=== PATIENT | female | born 1955 | race African-American/Black ===

== ENCOUNTER 2016-10-10 21:28 | Emergency (ER) | payer MEDICAID, OTHER ==
[~2016-10-10] VITALS: Ht 160 cm; Wt 81.6 kg
[~2016-10-10 21:28] MED LIST: IBUPROFEN600 MG ORAL; NORCO 10-325 T1 EACH ORAL; NORCO 10/3251 EA ORAL; NORCO 5-325 TA1 EACH ORAL; XOPENEX0.63 MG/3 HHN; qvar
[2016-10-10] MEDS ORDERED: GABAPENTIN300 MG ORAL (21:57)
--- NOTE | 2016-10-10 21:58 | Emergency Room Report ---
History of Present Illness General Chief Complaint: Neck Pain Source: Patient Present Illness HPI Is a 61-year-old female with a history of chronic pain. She has a history of herniated disc in her neck requiring surgery. She presents with chief complaint of numbness to both her hands for about a week now. Similar symptom in the past. She said that she tried to call her neurosurgeon but [place]. Denies any fever chills denies any trauma. Pain is 10 out of 10. Unable to sleep. Said her pain medication not helping. Denies any other complaint. No other neurological deficit. No incontinence of bowel or urine. 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) Patient History Past Medical History: see triage record, old chart reviewed Past Surgical History: other Pertinent Family History: none Social History: Denies: smoking Now: No Immunizations: other Reviewed Nursing Documentation: PMH: Agreed, PSxH: Agreed Nursing Documentation-PMH Hx Cardiac Problems: No - back and neck surgery Hx Asthma: Yes - Bronchitis Review of Systems Eye: Denies: blurred vision, eye pain ENT: Denies: ear pain, nose congestion, throat swelling Respiratory: Denies: cough, shortness of breath Cardiovascular: Denies: chest pain, palpitations Gastrointestinal: Denies: abdominal pain, diarrhea, nausea, vomiting Musculoskeletal: Denies: back pain, joint pain Skin: Denies: rash Neurological: Denies: headache, numbness Endocrine: Denies: increased thirst, increased urine Hematologic/Lymphatic: Denies: easy bruising All Other Systems: negative except mentioned in HPI Physical Exam Vital Signs Date Time Temp Pulse Resp B/P Pulse Ox O2 Delivery O2 Flow Rate FiO2 10/10/16 21:32 97.5 88 15 182/90 99 Room Air vitals with hypertension Sp02 EP Interpretation: reviewed, normal General Appearance: well appearing, no apparent distress, alert Head: normocephalic, atraumatic Eyes: bilateral eye EOMI, bilateral eye PERRL ENT: hearing grossly normal, normal pharynx Neck: full range of motion, supple, no meningismus, other - Surgical scar well -healed Respiratory: chest non-tender, lungs clear, normal breath sounds Cardiovascular #1: regular rate, rhythm, no murmur Gastrointestinal: normal bowel sounds, non tender, no mass, no organomegaly, no bruit, non-distended Musculoskeletal: back normal, gait/station normal, normal range of motion Neurologic: alert, oriented x3 Psychiatric: mood/affect normal Skin: warm/dry Medical Decision Making Diagnostic Impression: Primary Impression: Neck pain Additional Impressions: Opioid dependence Cervical neuropathy ER Course Patient presents with neuropathy. I suspect a strong opioid dependence and possibly drug-seeking behavior. She gets monthly prescription from Dr. Linda Haro. She also has multiple prescription for multiple doctors in between. She may need an MRI but does not have to be emergent. This no other focal deficit. We'll discharge home. This is similar issue that she gave last time and said that she could not contact her surgeon. I see no evidence quina syndrome, spinal epidural abscess, or neoplastic process Last Vital Signs Date Time Temp Pulse Resp B/P Pulse Ox O2 Delivery O2 Flow Rate FiO2 10/10/16 21:32 97.5 88 15 182/90 99 Room Air Status: unchanged Disposition: HOME, SELF-CARE Condition: Stable Scripts Gabapentin* (GABAPENTIN*) 300 Mg Capsule 300 MG ORAL THREE TIMES A DAY, #60 CAP 0 Refills Prov: LELAND BURNETT M.D. 10/10/16 Referrals: [facility] ([facility]P) Patient Instructions: NECK PAIN, No Trauma Additional Instructions: Followup with your DrDebbie within 7 days. You may be an MRI. Your DrDebbiewill determine this. Return if symptom worsen. LELAND BURNETT M.D. Oct 10, 2016 21:58
[2016-10-10 22:00] VITALS: BP 182/90
[2016-10-10 22:04] VITALS: BP 182/90
== END 2016-10-10 22:07 | disposition home or self-care (01) ==
LOC: EMR 21:49
DX: M54.2 Cervicalgia (principal); F11.20 Opioid dependence, uncomplicated; G62.9 Polyneuropathy, unspecified; G89.29 Other chronic pain; Z88.0 Allergy status to penicillin; Z88.6 Allergy status to analgesic agent; Z88.8 Allergy status to other drugs, medicaments and biological substances
CPT/HCPCS: 99283

== ENCOUNTER 2017-06-18 14:26 | Emergency (ER) | payer MEDICAID, OTHER ==
[~2017-06-18] VITALS: Ht 160 cm; Wt 77.1 kg
[~2017-06-18 14:26] MED LIST changes: +GABAPENTIN300 MG ORAL; +Sodium Chloride 500ML 500 ML IV ONE
[2017-06-18] MEDS ORDERED: Solu-MEDROL 125mg Inj IVP ONE (14:30)
[2017-06-18] MEDS: Ipratropium 0.02% Inh Soln 2.5ml UD HHN SCH ×3 (14:54→15:02)
[2017-06-18] MEDS: Albuterol ud Inhalation HHN SCH ×3 (14:54→15:02)
[2017-06-18 15:35] LABS: BASOPHILS % (AUTO) 0.7 % (0.0-2.0); EOSINOPHILS % (AUTO) 2.6 % (0.0-3.0); HEMATOCRIT 33.7 % (37.0-47.0); HEMOGLOBIN 10.5 G/DL (12.0-16.0); LYMPHOCYTES % (AUTO) 43.9 % (20.0-45.0); MEAN CORPUSCULAR VOLUME 92 FL (80-99); MONOCYTES % (AUTO) 7.7 % (1.0-10.0); NEUTROPHILS % (AUTO) 45.1 % (45.0-75.0); PLATELET COUNT 149 K/UL (150-450); RED BLOOD COUNT 3.64 M/UL (4.20-5.40); WHITE BLOOD COUNT 10.1 K/UL (4.8-10.8)
[2017-06-18 15:53] LABS: ANION GAP 10 mmol/L (5-15); BLOOD UREA NITROGEN 38 mg/dL (7-18); CALCIUM 7.5 MG/DL (8.5-10.1); CARBON DIOXIDE 25 MMOL/L (21-32); CHLORIDE 112 MMOL/L (98-107); POTASSIUM 4.7 MMOL/L (3.5-5.1); SODIUM 147 MMOL/L (136-145)
[2017-06-18 16:08] LABS: ALANINE AMINOTRANSFERASE 13 U/L (12-78); ALBUMIN 2.8 G/DL (3.4-5.0); ALBUMIN/GLOBULIN RATIO 0.8 (1.0-2.7); ALKALINE PHOSPHATASE 116 U/L (46-116); ASPARTATE AMINO TRANSFERASE 19 U/L (15-37); BILIRUBIN,TOTAL 0.2 MG/DL (0.2-1.0); CKMB 1.4 NG/ML (0.0-3.6); CREATINE KINASE 77 U/L (26-308)
[2017-06-18 17:16] VITALS: BP 155/102
[2017-06-18 19:30] VITALS: BP 166/94
[2017-06-18] MEDS ORDERED: HYDROmorphone 1mg/ml Carpuject IVP ONE (20:15)
[2017-06-18 20:18] LABS: APPEARANCE,URINE CLEAR; BILIRUBIN, URINE NEGATIVE (NEGATIVE); COLOR,URINE PALE YELLOW; GLUCOSE, URINE (UA) NEGATIVE (NEGATIVE); KETONES,URINE NEGATIVE (NEGATIVE); LEUKOCYTE ESTERASE ,URINE NEGATIVE (NEGATIVE); NITRITE,URINE NEGATIVE (NEGATIVE); PH,URINE 7 (4.5-8.0); PROTEIN,URINE 3+ (NEGATIVE); UROBILINOGEN,URINE NORMAL MG/DL (0.0-1.0)
--- NOTE | 2017-06-18 21:27 | Emergency Room Report ---
History of Present Illness General Chief Complaint: Dyspnea/Respdistress Source: Patient, Medical Record Present Illness HPI 61-year-old female presents to ED for evaluation. Patient brought in by ambulance from bus stop with shortness of breath. Patient history of COPD. O2 sats were low. Patient was started on breathing treatments by EMS. Patient states she was recently admitted for treatment of COPD exacerbation but was discharged. Denies chest pain. Denies fevers chills. No other aggravating relieving factors. 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) KETOROLAC (Unverified Allergy, Unknown, 06/18/17) TRAMADOL (Unverified Allergy, Unknown, 06/18/17) Patient History Past Medical History: COPD Past Surgical History: none Pertinent Family History: none Social History: Denies: smoking, alcohol use, drug use Now: No Immunizations: UTD Reviewed Nursing Documentation: PMH: Agreed, PSxH: Agreed Nursing Documentation-PMH Past Medical History: No History, Except For Hx Cardiac Problems: No - back and neck surgery Hx Asthma: Yes Review of Systems All Other Systems: negative except mentioned in HPI Physical Exam Vital Signs Date Time Temp Pulse Resp B/P (MAP) Pulse Ox O2 Delivery O2 Flow Rate FiO2 06/18/17 14:17 98.4 113 18 178/86 100 Room Air 06/18/17 14:38 21 Sp02 EP Interpretation: reviewed, normal General Appearance: no apparent distress, alert, GCS 15, non-toxic Head: normocephalic, atraumatic Eyes: bilateral eye normal inspection, bilateral eye PERRL ENT: hearing grossly normal, normal pharynx, no angioedema, normal voice Neck: full range of motion, supple/symm/no masses Respiratory: chest non-tender, accessory muscle use, crackles, speaking full sentences, wheezing Cardiovascular #1: regular rate, rhythm, no edema Cardiovascular #2: 2+ carotid (R), 2+ carotid (L), 2+ radial (R), 2+ radial (L) , 2+ dorsalis pedis (R), 2+ dorsalis pedis (L) Gastrointestinal: normal bowel sounds, non tender, soft, non-distended, no guarding, no rebound Rectal: deferred Genitourinary: normal inspection, no CVA tenderness Musculoskeletal: back normal, gait/station normal, normal range of motion, non- tender Neurologic: alert, oriented x3, responsive, motor strength/tone normal, sensory intact, speech normal Psychiatric: judgement/insight normal, memory normal, mood/affect normal, no suicidal/homicidal ideation Reflexes: 3+ bicep (R), 3+ bicep (L), 3+ tricep (R), 3+ tricep (L), 3+ knee (R) , 3+ knee (L) Skin: normal color, no rash, warm/dry, well hydrated Lymphatic: no adenopathy Medical Decision Making Diagnostic Impression: Primary Impression: COPD exacerbation Additional Impression: Renal insufficiency ER Course Hospital Course 61-year-old F presenting to ED with SOB. h/o COPD Differential diagnoses include: Pneumonia, CHF exacerbation, pneumothorax, fluid overload Clinical course Patient placed on stretcher. On box toe stitcher with stable vitals. After initial history and physical, I ordered nebulizer treatments. I ordered labs, IV fluids, EKG, chest x-ray, blood cultures, UA. Labs - no leukocytosis noted, hemoglobin/hematocrit stable, BUN/Cr eleavted, lactate okay, troponins negative EKG - NSR, no acute ischemic changes interpretd by me CXR - cardiomegaly despite multiple patient continues to have shortness of breath and wheezing. Antibiotics given Because of insurance patient will be transferred I feel this is a highly complex case requiring extensive working including EKG/ Rhythm strip, Xray/CT/US, Blood/urine lab work, repeat exams while in ED, and administration of strong opiates/narcotics for pain control, admission to hospital or close patient follow up. Diagnosis - COPD exacerbation, renal insufficiency transferred in serious condition Labs Test 06/18/17 15:14 06/18/17 19:45 White Blood Count 10.1 K/UL (4.8-10.8) Red Blood Count 3.64 M/UL (4.20-5.40) Hemoglobin 10.5 G/DL (12.0-16.0) Hematocrit 33.7 % (37.0-47.0) Mean Corpuscular Volume 92 FL (80-99) Mean Corpuscular Hemoglobin 28.8 PG (27.0-31.0) Mean Corpuscular Hemoglobin Concent 31.2 G/DL (32.0-36.0) Red Cell Distribution Width 14.0 % (11.6-14.8) Platelet Count 149 K/UL (150-450) Mean Platelet Volume 11.3 FL (6.5-10.1) Neutrophils (%) (Auto) 45.1 % (45.0-75.0) Lymphocytes (%) (Auto) 43.9 % (20.0-45.0) Monocytes (%) (Auto) 7.7 % (1.0-10.0) Eosinophils (%) (Auto) 2.6 % (0.0-3.0) Basophils (%) (Auto) 0.7 % (0.0-2.0) Sodium Level 147 MMOL/L (136-145) Potassium Level 4.7 MMOL/L (3.5-5.1) Chloride Level 112 MMOL/L (98-107) Carbon Dioxide Level 25 MMOL/L (21-32) Anion Gap 10 mmol/L (5-15) Blood Urea Nitrogen 38 mg/dL (7-18) Creatinine 2.0 MG/DL (0.55-1.30) Estimat Glomerular Filtration Rate 30.5 mL/min (>60) Glucose Level 83 MG/DL (74-106) Lactic Acid Level 1.10 mmol/L (0.66-2.22) Calcium Level 7.5 MG/DL (8.5-10.1) Total Bilirubin 0.2 MG/DL (0.2-1.0) Aspartate Amino Transf (AST/SGOT) 19 U/L (15-37) Alanine Aminotransferase (ALT/SGPT) 13 U/L (12-78) Alkaline Phosphatase 116 U/L (46-116) Total Creatine Kinase 77 U/L (26-308) Creatine Kinase MB 1.4 NG/ML (0.0-3.6) Creatine Kinase MB Relative Index 1.8 Troponin I 0.005 ng/mL (0.000-0.056) Pro-B-Type Natriuretic Peptide 410 pg/mL (0-125) Total Protein 6.1 G/DL (6.4-8.2) Albumin 2.8 G/DL (3.4-5.0) Globulin 3.3 g/dL Albumin/Globulin Ratio 0.8 (1.0-2.7) Urine Color Pale yellow Urine Appearance Clear Urine pH 7 (4.5-8.0) Urine Specific Lancing 1.005 (1.005-1.035) Urine Protein 3+ (NEGATIVE) Urine Glucose (UA) Negative (NEGATIVE) Urine Ketones Negative (NEGATIVE) Urine Occult Blood Negative (NEGATIVE) Urine Nitrite Negative (NEGATIVE) Urine Bilirubin Negative (NEGATIVE) Urine Urobilinogen Normal MG/DL (0.0-1.0) Urine Leukocyte Esterase Negative (NEGATIVE) Urine RBC 0-2 /HPF (0 - 2) Urine WBC 0-2 /HPF (0 - 2) Urine Squamous Epithelial Cells Few /LPF (NONE/OCC) Urine Bacteria Few /HPF (NONE) EKG Diagnostic Results Rate: normal Rhythm: NSR ST Segments: no acute changes ASA given to the pt in ED: No Rhythm Strip Diag. Results EP Interpretation: yes Rhythm: NSR, no PVC's, no ectopy Chest X-Ray Diagnostic Results Chest X-Ray Diagnostic Results : Chest X-Ray Ordered: Yes # of Views/Limited/Complete: 1 View Indication: Shortness of Breath EP Interpretation: Yes Interpretation: no pneumothorax, no acute cardiopulmonary disease, other - cardiomegaly. pleural effusion Impression: Other - cardiomegaly Last Vital Signs Date Time Temp Pulse Resp B/P (MAP) Pulse Ox O2 Delivery O2 Flow Rate FiO2 06/18/17 17:16 98.4 123 21 155/102 96 Room Air 06/18/17 15:23 21 Status: improved Disposition: [facility] Condition: Serious Referrals: [facility] ([facility]P) LALO LEAL M.D. Jun 18, 2017 21:27
[2017-06-18 21:30] VITALS: BP 163/97
[2017-06-18 23:30] VITALS: BP 169/85
[2017-06-19 01:00] VITALS: BP 172/89
[2017-06-19 02:00] VITALS: BP 172/89
--- NOTE | 2017-06-19 12:01 | Diagnostic Imaging Report ---
Indication: Dyspnea Technique: XRAY Chest 1v Comparison: 05/18/2009 Findings: Heart is enlarged. There is pulmonary vascular congestion. No definite focal airspace consolidation. No pleural effusion. No pneumothorax. No acute osseous abnormality seen. Cervical fixation hardware is partially visualized Impression: Cardiomegaly with central pulmonary vascular congestion. No focal consolidation.
--- NOTE | 2017-06-22 19:28 | Cardiology Report ---
APPROVED REPORT EKG Measurement Heart [id number] ID [id number] Normal sinus rhythm Biatrial enlargement Abnormal ECG
== END 2017-06-19 02:00 | disposition short-term general hospital (02) ==
LOC: EDBD 14:26 → EMR 15:30
DX: J44.1 Chronic obstructive pulmonary disease with (acute) exacerbation (principal); N28.9 Disorder of kidney and ureter, unspecified; Z88.0 Allergy status to penicillin; Z88.6 Allergy status to analgesic agent; Z88.8 Allergy status to other drugs, medicaments and biological substances; I51.7 Cardiomegaly
CPT/HCPCS: 36415; 71010; 80053; 81003; 82550; 82553; 83605; 83880; 84484; 85025; 86710; 87040; 93005; 94640; 94664; 96374; 96375; 99285; J1170; J1956; J2930; J7040

== ENCOUNTER 2017-07-17 05:40 | Emergency (ER) | payer MEDICAID ==
[~2017-07-17] VITALS: Ht 160 cm; Wt 81.6 kg
[~2017-07-17 05:40] MED LIST changes: -Sodium Chloride 500ML 500 ML IV ONE
[2017-07-17] MEDS ORDERED: ROXICODONE15 MG ORAL (06:00)
[2017-07-17 06:13] VITALS: BP 158/89
[2017-07-17] MEDS ORDERED: Dicyclomine HCl 10mg/5ml oral soln ORAL ONE (06:15)
[2017-07-17] MEDS ORDERED: Metoclopramide 10mg/10ml Liq ORAL ONE (06:15)
[2017-07-17] MEDS ORDERED: BENTYL10 MG ORAL (06:16)
[2017-07-17] MEDS ORDERED: REGLAN10 MG ORAL (06:16)
[2017-07-17 06:25] VITALS: BP 158/89
--- NOTE | 2017-07-17 23:51 | Emergency Room Report ---
History of Present Illness General Chief Complaint: Pain Source: Patient, Medical Record Present Illness HPI 61-year-old female walks in with nausea, epigastric pain, vomiting, and diarrhea since last night. She endorses that she "eats something funny". Is not taking any [id number] medications Trying to tolerate water but keeps vomiting it up. Contrary to director embalmer note, patient NOT here for hip pain. She has copies of imaging from [facility] - was seen, evaluated by there already. 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 Was DCed from the ER allegedly there with outpatient followup. Allergies: Coded Allergies: BUTORPHANOL TARTRATE (Verified Allergy, Severe, behavioral, 07/17/17) KETOROLAC TROMETHAMINE (Verified Allergy, Severe, behavioral, 07/17/17) MORPHINE (Verified Allergy, Severe, itching, 07/17/17) PENICILLINS (Verified Allergy, Severe, swelling, 07/17/17) LINEZOLID (Verified Allergy, Intermediate, rash, 07/17/17) VANCOMYCIN (Verified Allergy, Intermediate, donald syndrome, 07/17/17) KETOROLAC (Unverified Allergy, Unknown, 07/17/17) TRAMADOL (Unverified Allergy, Unknown, 07/17/17) Patient History Past Medical History: see triage record, old chart reviewed Past Surgical History: none Pertinent Family History: none Social History: Denies: smoking, alcohol use, drug use Last Menstrual Period: n/a Now: No Immunizations: UTD Reviewed Nursing Documentation: PMH: Agreed, PSxH: Agreed Nursing Documentation-PMH Hx Cardiac Problems: No - back and neck surgery Hx Asthma: Yes Review of Systems All Other Systems: negative except mentioned in HPI Physical Exam Vital Signs Date Time Temp Pulse Resp B/P (MAP) Pulse Ox O2 Delivery O2 Flow Rate FiO2 07/17/17 05:53 98.1 91 16 197/96 100 Room Air Sp02 EP Interpretation: reviewed, normal General Appearance: normal inspection, well appearing, no apparent distress, alert, GCS 15, non-toxic, obese Head: normocephalic, atraumatic Eyes: bilateral eye PERRL, bilateral eye EOMI ENT: normal ENT inspection, hearing grossly normal, normal pharynx, no angioedema, normal voice, TMs + canals normal, uvula midline, moist mucus membranes Neck: normal inspection, full range of motion, supple, thyroid normal, no meningismus, no bony tend Respiratory: normal inspection, lungs clear, normal breath sounds, no rhonchi, no respiratory distress, no retraction, no accessory muscle use, no wheezing, speaking full sentences Cardiovascular #1: regular rate, rhythm, no edema, no JVD, normal capillary refill Gastrointestinal: normal inspection, normal bowel sounds, soft, no mass, no peritonitis, non-distended, no guarding, no hernia, no pulsatile mass, other - mid epigastric pain Genitourinary: no CVA tenderness Musculoskeletal: normal inspection, back normal, normal range of motion, no calf tenderness, pelvis stable, Blossom's Sign negative Neurologic: normal inspection, alert, oriented x3, responsive, services mgr III-XII nml as tested, motor strength/tone normal, cerebellar normal, normal gait, speech normal Psychiatric: normal inspection, judgement/insight normal, mood/affect normal, no suicidal/homicidal ideation, no delusions Skin: normal inspection, normal color, no rash Lymphatic: normal inspection, no adenopathy Medical Decision Making Diagnostic Impression: Primary Impression: Gastroenteritis ER Course Mild epigastric ttp on exam VSS, Afebrile Tolerating PO after reglan/bentyl No additional vomiting, diarrhea in ED Patient has cane - advised to probably NOT weight bear on hip with fx and to followup as advised by Ortho at [facility] Was given reglan, bentyl ER course: Patient has remained stable during ED stay. Disposition: Patient is to be discharged to home. Prescriptions given are bentyl, reglan Patient is instructed to follow up with their primary care doctor within 5 days. Strict return precautions discussed with patient such as fever, chills, worsening/severe pain, nausea, vomiting, which may indicate severe illness. Patient verbalizes understanding and agrees with plan. Please note that this Emergency Department Report was dictated using [employer]systemsdimethylan[employer] sulfator operator technology software, occasionally this can lead to erroneous entry secondary to interpretation by the dictation equipment Last Vital Signs Date Time Temp Pulse Resp B/P (MAP) Pulse Ox O2 Delivery O2 Flow Rate FiO2 07/17/17 06:25 98.1 95 16 158/89 100 Room Air Status: improved Disposition: HOME, SELF-CARE Condition: Improved Scripts Dicyclomine Hcl* (BENTYL*) 10 Mg Capsule 10 MG ORAL BID for Diarrhea for 7 Days, #14 CAP Prov: RIKI SOMMER M.D. 07/17/17 Metoclopramide Hcl* (REGLAN*) 10 Mg Tablet 10 MG ORAL BID for 7 Days, #14 TAB Prov: RIKI SOMMER M.D. 07/17/17 Patient Instructions: Viral Gastroenteritis, Adult, [id number] Additional Instructions: - Take reglan as needed twice a day for stomach pain, nausea - Take bentyl up to 2x a day for diarrhea - Drink plenty of fluids - Follow up with your doctor in 2-3 days RIKI SOMMER M.D. Jul 17, 2017 23:51
== END 2017-07-17 06:25 | disposition home or self-care (01) ==
LOC: EMR 06:03
DX: K52.9 Noninfective gastroenteritis and colitis, unspecified (principal); J45.909 Unspecified asthma, uncomplicated; Z88.6 Allergy status to analgesic agent; Z88.1 Allergy status to other antibiotic agents; Z88.0 Allergy status to penicillin
CPT/HCPCS: 99283

== ENCOUNTER 2017-10-28 05:47 | Emergency (ER) | payer MEDICAID ==
[~2017-10-28] VITALS: Ht 160 cm; Wt 81.6 kg
[~2017-10-28 05:47] MED LIST changes: +BENTYL10 MG ORAL; +REGLAN10 MG ORAL; +ROXICODONE15 MG ORAL
[2017-10-28] MEDS ORDERED: PREDNISONE20 MG ORAL (06:08)
--- NOTE | 2017-10-28 06:14 | Emergency Room Report ---
History of Present Illness General Chief Complaint: Pain Source: Patient Present Illness HPI Patient present with complaints of left neck pain and left upper shoulder pain Patient reports that she has been see by her primary physician who had referral to specialty consultation She was told that she was not a surgical candidate for her neck There was no recent trauma or fall Denies any chest pain or shortness of breath Patient feels that she has increased cramping in the left hand Denies any change with position or weather Patient has extensive past medical history including previous cervical spine surgery 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) FENTANYL (Verified Allergy, Unknown, Rash, 10/28/17) KETOROLAC (Unverified Allergy, Unknown, 10/28/17) TRAMADOL (Unverified Allergy, Unknown, 10/28/17) ACETAMINOPHEN (Verified Adverse Reaction, Unknown, 10/28/17) abd pain Patient History Past Medical History: see triage record Pertinent Family History: none Last Menstrual Period: n/a Reviewed Nursing Documentation: PMH: Agreed; PSxH: Agreed Nursing Documentation-PMH Past Medical History: No History, Except For Hx Cardiac Problems: No - back and neck surgery 2014 Hx Asthma: Yes Review of Systems All Other Systems: negative except mentioned in HPI Physical Exam Vital Signs Date Time Temp Pulse Resp B/P (MAP) Pulse Ox O2 Delivery O2 Flow Rate FiO2 10/28/17 05:52 98.1 95 16 161/97 96 Room Air 98.1 Sp02 EP Interpretation: reviewed, normal General Appearance: no apparent distress Head: normocephalic, atraumatic Eyes: left eye other - Severe cataracts ENT: normal pharynx, no angioedema Neck: supple, thyroid normal Respiratory: lungs clear Cardiovascular #1: regular rate, rhythm Musculoskeletal: other - Equal telesales consultant bilaterally Neurologic: alert, oriented x3, responsive, other - Patient ambulate with a cane Skin: no rash Lymphatic: no adenopathy Medical Decision Making Diagnostic Impression: Primary Impression: neck pain ER Course Patient has significant chronicity to her acute presentation With discussion regarding different intervention, patient reports that epidurals last only 24 hours. After reviewing CURES, it appears patient was also provided recent Soma and has multiple medications by different providers. Patient had not mentioned any previous prescriptions or recent muscle relaxers I discussed with her that it is very important to be followed by primary pain management Patient also requires neurosurgical referral and continued care Patient is provided steroids And requires close outpatient follow-up Last Vital Signs Date Time Temp Pulse Resp B/P (MAP) Pulse Ox O2 Delivery O2 Flow Rate FiO2 10/28/17 05:52 98.1 95 16 161/97 96 Room Air 98.1 Status: unchanged Disposition: HOME, SELF-CARE Condition: Stable Scripts Prednisone* (PREDNISONE*) 20 Mg Tablet 20 MG ORAL BID, #12 TAB Prov: Aviva Luis DO 10/28/17 Patient Instructions: Cervical Sprain, [id number], Cervical Radiculopathy, [id number] Additional Instructions: Please follow-up with your primary physician in the next one to 2 days. You require specialty follow-up. We have also mentioned that your neck surgery was performed at [facility]. Unfortunately we do not have the specialty you require at this facility. And close follow-up is recommended Aviva Luis DO October 28, 2017 06:14
[2017-10-28 06:30] VITALS: BP 161/97
== END 2017-10-28 06:32 | disposition home or self-care (01) ==
LOC: EMR 06:21
DX: M54.2 Cervicalgia (principal); M25.512 Pain in left shoulder; J45.909 Unspecified asthma, uncomplicated; Z88.6 Allergy status to analgesic agent; Z88.5 Allergy status to narcotic agent; Z88.0 Allergy status to penicillin
CPT/HCPCS: 99283

== ENCOUNTER 2018-10-30 21:53 | Emergency (ER) | payer MEDICARE, OTHER ==
[~2018-10-30] VITALS: Ht 160 cm; Wt 79.4 kg
[~2018-10-30 21:53] MED LIST changes: +PREDNISONE20 MG ORAL
[2018-10-30 22:00] VITALS: BP 167/79
--- NOTE | 2018-10-30 22:00 | NUR ---
ED Nurse Note: Pt arrived ambulatory for complaint of LLQ pain that radiates to back. Pt states she was told she has bone spurs. Pain described as aching and constant. 03/29.
[2018-10-30] MEDS ORDERED: Acetaminophen 500mg (ES) tab ORAL ONE (22:15)
[2018-10-30] MEDS ORDERED: ACETAMINOPHEN500 M3 ORAL (22:21)
--- NOTE | 2018-10-30 22:21 | Emergency Room Report ---
History of Present Illness General Chief Complaint: Pain Source: Patient Present Illness HPI This a 63-year-old female with a history of chronic pain. She presents with chief complaint of right sided and back pain. Onset for last for 5 days. Patient denies any fever chills but denies any trauma. Pain is 10 out of 10. Said that she hasn't take anything for this pain. She normally doesn't get any pain medication. Said that she hasn't take any pain medication for months. Denies any fever chills but denies any nausea vomiting. Denies any other complaint. No incontinence of bowel or urine. No urinary complaint. No radiation. Worse with movement. 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) FENTANYL (Verified Allergy, Unknown, Rash, 10/28/17) KETOROLAC (Unverified Allergy, Unknown, 10/28/17) TRAMADOL (Unverified Allergy, Unknown, 10/28/17) ACETAMINOPHEN (Verified Adverse Reaction, Unknown, 10/28/17) abd pain Patient History Past Medical History: see triage record, old chart reviewed Past Surgical History: other Pertinent Family History: none Social History: Denies: smoking Last Menstrual Period: 1999 Now: No Immunizations: other Reviewed Nursing Documentation: PMH: Agreed; PSxH: Agreed Nursing Documentation-PMH Past Medical History: No History, Except For Hx Asthma: Yes - bronchitis, ephysema Hx Gastrointestinal Problems: Yes Review of Systems Eye: Denies: eye pain, blurred vision ENT: Denies: ear pain, nose congestion, throat swelling Respiratory: Denies: cough, shortness of breath Cardiovascular: Denies: chest pain, palpitations Gastrointestinal: Denies: abdominal pain, diarrhea, nausea, vomiting Musculoskeletal: Reports: back pain; Denies: joint pain Skin: Denies: rash Neurological: Denies: headache, numbness Endocrine: Denies: increased thirst, increased urine Hematologic/Lymphatic: Denies: easy bruising All Other Systems: negative except mentioned in HPI Physical Exam Vital Signs Date Time Temp Pulse Resp B/P (MAP) Pulse Ox O2 Delivery O2 Flow Rate FiO2 10/30/18 21:56 98.8 105 16 96 Room Air vitals with high blood pressure Sp02 EP Interpretation: reviewed, normal General Appearance: well appearing, no apparent distress, alert Head: normocephalic, atraumatic Eyes: 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 no step off. no anesthesia, gait/station normal, normal range of motion Psychiatric: mood/affect normal Skin: warm/dry Medical Decision Making Diagnostic Impression: Primary Impression: Exacerbation of chronic back pain Additional Impression: Opioid dependence ER Course She presents with back pain. I suspect a high opioid dependence and drug- seeking behavior. Patient claimed that she has not take any pain medication for months. She received oxycodone on 10/23/2018. She had multiple opioids prescription and benzodiazepine from multiple different doctors. I am uncomfortable prescribing her narcotics based on her dark narcotics seeking behavior. We'll discharge home. I see no evidence of cauda equina syndrome, spinal epidural abscess or neoplastic process. Last Vital Signs Date Time Temp Pulse Resp B/P (MAP) Pulse Ox O2 Delivery O2 Flow Rate FiO2 10/30/18 21:56 98.8 105 16 96 Room Air Status: improved Disposition: HOME, SELF-CARE Condition: Stable Scripts Acetaminophen* (ACETAMINOPHEN EXTRA STRENGTH*) 500 Mg Tablet 500 MG ORAL Q8H PRN for Fever/Headache/Mild Pain, #30 TAB Prov: Yordy Wang MD 10/30/18 Additional Instructions: Follow-up with your doctor in 7 days. Return if symptom worsen. Yordy Wang MD October 30, 2018 22:21
[2018-10-30 22:40] VITALS: BP 154/84
--- NOTE | 2018-10-30 22:40 | NUR ---
ED Nurse Note: Pt cleared by MD. Discharge paperwork and prescriptions provided. Pt verbalized understanding of all instructions. All belongings taken with pt. ID band removed. VSS.
== END 2018-10-30 22:40 | disposition home or self-care (01) ==
LOC: EMR 22:05
DX: M54.9 Dorsalgia, unspecified (principal); G89.29 Other chronic pain; F11.20 Opioid dependence, uncomplicated; Z88.6 Allergy status to analgesic agent; Z88.0 Allergy status to penicillin
CPT/HCPCS: 99282

== ENCOUNTER 2019-01-05 23:41 | Inpatient (IN) | payer MEDICARE, OTHER ==
[~2019-01-05] VITALS: Ht 160 cm; Wt 81.9 kg
[~2019-01-05 23:41] MED LIST changes: +ACETAMINOPHEN500 M3 ORAL
--- NOTE | 2019-01-05 23:51 | NUR ---
ED Nurse Note: COPD patient with complaints of total body pain, acute onset despite history of chronic back pain.
[2019-01-05 23:53] VITALS: BP 163/63
[2019-01-06] MEDS ORDERED: Isovue-300 100ml vial INJ PRN (00:30)
--- NOTE | 2019-01-06 00:51 | NUR ---
ED Nurse Note: Patient unable to stay away more than 5 seconds, arousable to pain. Mildly coherent once aroused but drifts into sleep shortly after. ERMD informed.
--- NOTE | 2019-01-06 01:22 | NUR ---
ED Nurse Note: Initial labs sent.
[2019-01-06 01:44] LABS: BASOPHILS % (AUTO) 2.1 % (0.0-2.0); EOSINOPHILS % (AUTO) 6.3 % (0.0-3.0); HEMATOCRIT 33.5 % (37.0-47.0); HEMOGLOBIN 10.2 G/DL (12.0-16.0); LYMPHOCYTES % (AUTO) 41.8 % (20.0-45.0); MEAN CORPUSCULAR VOLUME 88 FL (80-99); MONOCYTES % (AUTO) 7.9 % (1.0-10.0); NEUTROPHILS % (AUTO) 41.9 % (45.0-75.0); PLATELET COUNT 162 K/UL (150-450); RED BLOOD COUNT 3.79 M/UL (4.20-5.40); RED CELL DISTRIBUTION WIDTH 16.7 % (11.6-14.8); WHITE BLOOD COUNT 7.3 K/UL (4.8-10.8)
[2019-01-06 01:57] LABS: ALANINE AMINOTRANSFERASE 14 U/L (12-78); ALBUMIN 3.7 G/DL (3.4-5.0); ALKALINE PHOSPHATASE 184 U/L (46-116); ANION GAP 7 mmol/L (5-15); ASPARTATE AMINO TRANSFERASE 24 U/L (15-37); BILIRUBIN,TOTAL 0.2 MG/DL (0.2-1.0); BLOOD UREA NITROGEN 49 mg/dL (7-18); CALCIUM 8.8 MG/DL (8.5-10.1); CARBON DIOXIDE 23 MMOL/L (21-32); CHLORIDE 110 MMOL/L (98-107); CREATININE 3.5 MG/DL (0.55-1.30); SODIUM 141 MMOL/L (136-145)
[2019-01-06 02:15] LABS: POTASSIUM 6.3 MMOL/L (3.5-5.1)
[2019-01-06 02:24] LABS: APPEARANCE,URINE CLEAR; BILIRUBIN, URINE NEGATIVE (NEGATIVE); COLOR,URINE PALE YELLOW; GLUCOSE, URINE (UA) NEGATIVE (NEGATIVE); KETONES,URINE NEGATIVE (NEGATIVE); LEUKOCYTE ESTERASE ,URINE 1+ (NEGATIVE); NITRITE,URINE NEGATIVE (NEGATIVE); PH,URINE 8 (4.5-8.0); PROTEIN,URINE 3+ (NEGATIVE); UROBILINOGEN,URINE NORMAL MG/DL (0.0-1.0)
--- NOTE | 2019-01-06 03:22 | NUR ---
ED Nurse Note: Patient second lab drawn and sent to verify elevated potassium.
[2019-01-06 03:47] LABS: ALANINE AMINOTRANSFERASE 12 U/L (12-78); ALBUMIN 3.2 G/DL (3.4-5.0); ALBUMIN/GLOBULIN RATIO 0.8 (1.0-2.7); ALKALINE PHOSPHATASE 176 U/L (46-116); ANION GAP 8 mmol/L (5-15); ASPARTATE AMINO TRANSFERASE 22 U/L (15-37); BILIRUBIN,TOTAL 0.2 MG/DL (0.2-1.0); BLOOD UREA NITROGEN 50 mg/dL (7-18); CALCIUM 8.9 MG/DL (8.5-10.1); CARBON DIOXIDE 21 MMOL/L (21-32); CHLORIDE 112 MMOL/L (98-107); CREATININE 3.4 MG/DL (0.55-1.30); SODIUM 141 MMOL/L (136-145)
[2019-01-06 03:49] LABS: POTASSIUM 6.3 MMOL/L (3.5-5.1)
--- NOTE | 2019-01-06 03:50 | NUR ---
ED Nurse Note: ERMD NOTIFIED REGARDING PT'S CRITICAL LAB K=6.3
[2019-01-06] MEDS ORDERED: Sodium Polystyrene Sulfonate 15gm Powder ORAL ONE (04:00)
--- NOTE | 2019-01-06 04:47 | NUR ---
ED Nurse Note: Patient went down for CT.
--- NOTE | 2019-01-06 05:18 | Diagnostic Imaging Report ---
Indication: Altered mental status Technique: Contiguous 5 mm thick transaxial imaging of the head obtained in a Siemens Sensation [address] scanner. Soft tissue and bone windows generated. Automatic Exposure Control was utilized. Total Dose length Product (DLP): [address] Dose Index Volume (CTDIvol): 70.38 mGy Comparison: 12/04/2011 Findings: There is mild prominence of the ventricles, basal cisterns, and cerebral sulci consistent with atrophy. Mild, nonspecific, white matter hypoattenuation is noted throughout the brain consistent with chronic small vessel disease. There is no midline shift, edema, acute hemorrhage, mass effect, or abnormal extra-axial fluid collections. Bones are unremarkable. Impression: No acute intracranial bleed, mass effect or edema. Mild atrophy of the brain. Nonspecific white matter hypoattenuation probably due to chronic small vessel disease. [facility] has communicated the preliminary results to the Emergency Department. Their findings are largely concordant with this report. The CT scanner at [facility] is accredited by the [employer] and the scans are performed using dose optimization techniques as appropriate to a performed exam including Automatic Exposure control.
--- NOTE | 2019-01-06 05:33 | NUR ---
ED Nurse Note: Patient returned from CT.
--- NOTE | 2019-01-06 05:40 | Diagnostic Imaging Report ---
Indication: Abdominal pain Technique: Continuous helical transaxial imaging of the abdomen and pelvis was obtained from the lung bases to the pubic symphysis. No intravenous contrast was administered. Coronal 2-D reformats were also obtained. Automatic Exposure Control was utilized. Total Dose length Product (DLP): 1454.[address] Dose Index Volume (CTDIvol): 31.16 mGy Comparison: none Findings: Lung bases are notable for posterior basal atelectasis. There is a hiatal hernia. Study is limited due to the nonadministration of IV and oral contrast material. There is a 8 cm transverse masslike soft tissue focus just above the uterus. This could be clustered the nonopacified small bowel. Underlying mass or other pathology is not excluded. Further evaluation suggested. The bladder is distended. There is no free fluid. Bowel gas pattern appears nonobstructive. There is a moderate degree of fecal retention within the colon. The appendix is not definitely seen. Neither kidney is identified. There is a small left inguinal hernia containing fat. Extensive lumbar surgery has been performed. Multilevel interbody fusion noted with the posterior instrumented hardware L2-L5. Multilevel laminectomy noted. Anterior discectomy and fusion at L5-S1 also noted. IMPRESSION: Limited evaluation due to the nonadministration of IV and oral contrast. 8 cm masslike soft tissue focus within the lower abdomen could represent clustered nonopacified bowel. Other pathology not excluded and evaluation limited. Further evaluation recommended. Extensive all lumbar surgery as described above Moderate retention of fecal material Distended urinary bladder. Atherosclerotic vascular disease. Apparent bilateral nephrectomy. Posterior basal atelectasis Hiatal hernia [facility] has communicated the preliminary results to the Emergency Department. Their findings are largely concordant with this report. The CT scanner at [facility] is accredited by the [employer] and the scans are performed using dose optimization techniques as appropriate to a performed exam including Automatic Exposure control.
--- NOTE | 2019-01-06 06:08 | NUR ---
ED Nurse Note: Called and gave report to jesse WEINBERG.
--- NOTE | 2019-01-06 06:24 | NUR ---
ED Nurse Note: Patient transported to the floor, report given to louann WEINBERG prior to transport.
[2019-01-06 06:50] VITALS: BP 146/76
[2019-01-06] MEDS ORDERED: Sodium Polystyrene Sulfonate 15gm Powder ORAL SCH ×2 (07:30→23:30)
[2019-01-06] MEDS ORDERED: Miralax 17gm pkt ORAL PRN (07:30)
[2019-01-06] MEDS ORDERED: LORazepam Inj 2mg/ml 1ml IV PRN (07:30)
--- NOTE | 2019-01-06 07:30 | Emergency Room Report ---
History of Present Illness General Chief Complaint: Pain Source: Medical Record Present Illness HPI Patient is a 63-year-old female brought in by EMS after increased generalized pelvic pain as well as decreased ability to ambulate. Patient prior history of chronic low back pain as well as chronic hip pain. She had previously been on pain medications. She was noted to have no fever but states that she has been having worsening pain and had been brought in by EMS after unsuccessful attempt to reach the hospital. Patient was previously diagnosed with a urinary infection. 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) FENTANYL (Verified Allergy, Unknown, Rash, 10/28/17) TRAMADOL (Unverified Allergy, Unknown, 10/28/17) ACETAMINOPHEN (Verified Adverse Reaction, Unknown, 10/28/17) abd pain Uncoded Allergies: IV CONTRAST (Allergy, Unknown, 01/06/19) Patient History Past Medical History: see triage record Reviewed Nursing Documentation: PMH: Agreed; PSxH: Agreed Nursing Documentation-PMH Hx Asthma: Yes - bronchitis, ephysema Hx Gastrointestinal Problems: Yes Review of Systems All Other Systems: negative except mentioned in HPI Physical Exam Vital Signs Date Time Temp Pulse Resp B/P (MAP) Pulse Ox O2 Delivery O2 Flow Rate FiO2 01/05/19 23:36 98.8 80 18 154/72 (99) 97 Room Air Sp02 EP Interpretation: reviewed, normal General Appearance: normal inspection, alert, GCS 15, Chronically Ill Head: atraumatic 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 ENT: normal ENT inspection, hearing grossly normal, normal voice Neck: normal inspection, full range of motion, supple, no bony tend Respiratory: normal inspection, lungs clear, normal breath sounds, no respiratory distress, no retraction, no wheezing Cardiovascular #1: regular rate, rhythm, no edema Gastrointestinal: normal inspection, normal bowel sounds, non tender, soft, no guarding, no hernia Genitourinary: no CVA tenderness Musculoskeletal: normal inspection, back normal, normal range of motion Neurologic: normal inspection, alert, responsive, other - somnolent Psychiatric: normal inspection, judgement/insight normal, mood/affect normal Medical Decision Making Diagnostic Impression: Primary Impression: Exacerbation of chronic back pain Additional Impressions: Hyperkalemia Chronic renal insufficiency ER Course Patient presented for pelvic pain. Differential diagnosis include was not limited to fracture, appendicitis, bowel obstruction among others. Because of complexity of patient's case laboratory testing and imaging studies were ordered. Patient testing was notable for elevated BUN and creatinine as well as some. Patient noted to be somewhat confused. She was not given pain medications due to somnolence and what appeared to be oversedation. CT the head read by radiology showed no evidence of acute intracranial process. CT the abdomen pelvis read by radiology showed some irregular densities in the pelvis as well as poorly visualized kidneys bilaterally. Patient was started on IV fluids. Chappell catheter was placed. Patient was noted to have multiple medication allergies. Dr. Paras Peterson was contacted for inpatient management. Labs Test 01/06/19 01:30 01/06/19 02:19 01/06/19 03:22 White Blood Count 7.3 K/UL (4.8-10.8) Red Blood Count 3.79 M/UL (4.20-5.40) Hemoglobin 10.2 G/DL (12.0-16.0) Hematocrit 33.5 % (37.0-47.0) Mean Corpuscular Volume 88 FL (80-99) Mean Corpuscular Hemoglobin 26.9 PG (27.0-31.0) Mean Corpuscular Hemoglobin Concent 30.5 G/DL (32.0-36.0) Red Cell Distribution Width 16.7 % (11.6-14.8) Platelet Count 162 K/UL (150-450) Mean Platelet Volume 7.0 FL (6.5-10.1) Neutrophils (%) (Auto) 41.9 % (45.0-75.0) Lymphocytes (%) (Auto) 41.8 % (20.0-45.0) Monocytes (%) (Auto) 7.9 % (1.0-10.0) Eosinophils (%) (Auto) 6.3 % (0.0-3.0) Basophils (%) (Auto) 2.1 % (0.0-2.0) Urine Color Pale yellow Urine Appearance Clear Urine pH 8 (4.5-8.0) Urine Specific [place] 1.010 (1.005-1.035) Urine Protein 3+ (NEGATIVE) Urine Glucose (UA) Negative (NEGATIVE) Urine Ketones Negative (NEGATIVE) Urine Blood Negative (NEGATIVE) Urine Nitrite Negative (NEGATIVE) Urine Bilirubin Negative (NEGATIVE) Urine Urobilinogen Normal MG/DL (0.0-1.0) Urine Leukocyte Esterase 1+ (NEGATIVE) Urine RBC 0-2 /HPF (0 - 2) Urine WBC 0-2 /HPF (0 - 2) Urine Squamous Epithelial Cells Few /LPF (NONE/OCC) Urine Bacteria Occasional /HPF (NONE) Sodium Level 141 MMOL/L (136-145) Potassium Level 6.3 MMOL/L (3.5-5.1) Chloride Level 112 MMOL/L (98-107) Carbon Dioxide Level 21 MMOL/L (21-32) Anion Gap 8 mmol/L (5-15) Blood Urea Nitrogen 50 mg/dL (7-18) Creatinine 3.4 MG/DL (0.55-1.30) Estimat Glomerular Filtration Rate 16.5 mL/min (>60) Glucose Level 98 MG/DL (74-106) Calcium Level 8.9 MG/DL (8.5-10.1) Total Bilirubin 0.2 MG/DL (0.2-1.0) Aspartate Amino Transf (AST/SGOT) 22 U/L (15-37) Alanine Aminotransferase (ALT/SGPT) 12 U/L (12-78) Alkaline Phosphatase 176 U/L (46-116) Total Protein 7.1 G/DL (6.4-8.2) Albumin 3.2 G/DL (3.4-5.0) Globulin 3.9 g/dL Albumin/Globulin Ratio 0.8 (1.0-2.7) EKG Diagnostic Results Rate: normal Rhythm: NSR ST Segments: other - peaked t waves Last Vital Signs Date Time Temp Pulse Resp B/P (MAP) Pulse Ox O2 Delivery O2 Flow Rate FiO2 01/06/19 06:50 97.9 73 19 146/76 (99) 100 01/06/19 06:24 Room Air Status: unchanged Disposition: ADMITTED INPATIENT Condition: Stable Referrals: NON PHYSICIAN (PCP) Michael Woodard MD Jan 06, 2019 07:30
--- NOTE | 2019-01-06 07:37 | NUR ---
NURSE NOTES: Patient was received from ED. Report given to Mike WEINBERG. Admission of patient endorsed to Mike.
[2019-01-06 08:00] VITALS: BP 143/73
[2019-01-06] MEDS ORDERED: Dextrose 50% 25ml Syringe IV PRN (08:00)
--- NOTE | 2019-01-06 08:15 | NUR ---
NURSE NOTES: Pt in room in bed in low position, bed alarm on, call light next to pt, HOB in fowlers position, breakfast at bedside, pt sleeping, IV on rt aux bolus to be given, no orientation at this morning as pt was sleeping, new admission and admission order and interventions need to be placed, no s/s of distress or sob noted.
[2019-01-06] MEDS ORDERED: Calcium Gluconate 1gm/10ml vial IVP ONE (08:30)
[2019-01-06] MEDS ORDERED: Insulin Human Regular 100units/ml 3ml IV ONE (08:30)
[2019-01-06] MEDS: Heparin 5000 units/ml inj SUBQ SCH ×2 (09:25→20:51)
--- NOTE | 2019-01-06 11:54 | Consultation ---
History of Present Illness General Date patient seen: Jan 06, 2019 Time patient seen: 11:00 Chief Complaint: back and pelvic pain Referring physician: dr Peterson Present Illness HPI 63 years old female with PMH of COPD/emphysema, asthma, right-sided nephrectomy , chronic renal insufficiency, pancreatitis, hiatal hernia, was brought by pigs feet finisher due to increased low back and pelvic pain and difficulties with ambulation. Patient with prior history of chronic low back pain , chronic hip pain , status post multiply back surgeries. Bblood pressure was slightly elevated 154/72. Laboratory work revealed no leukocytosis , hemoglobin 10.2, hematocrit 33.5. Potassium 6.3. BUN 49, creatinine 3.5. Glucose 91. Stable LFT. Urinalysis revealed no evidence of UTI. CT of the head revealed no acute intracranial bleeding mass-effect or edema. CT of the abdomen and pelvis demonstrated masslike soft tissue focus within the lower abdomen, possibly representing clustered non-opacified bowels. Extensive lumbar surgery noted. Moderate distention of fecal material. Distended urinary bladder. Atherosclerotic vascular disease. Nephrectomy. Posterior bilateral atelectasis. Hiatal hernia. EKG revealed peaked T waves. Patient subsequently admitted for further management to telemetry floor. Upon further evaluation on telemetry floor patient appeared to be somnolent and unable to provide good history. She denied chest pain and shortness of breath , however. Pulse oximetry stable, no signs of respiratory distress. 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) FENTANYL (Verified Allergy, Unknown, Rash, 10/28/17) TRAMADOL (Unverified Allergy, Unknown, 10/28/17) ACETAMINOPHEN (Verified Adverse Reaction, Unknown, 10/28/17) abd pain Uncoded Allergies: IV CONTRAST (Allergy, Unknown, 01/06/19) Medication History Scheduled PRN Acetaminophen* (Acetaminophen Extra Strength*), 500 MG ORAL Q8H PRN for Fever/ Headache/Mild Pain Patient History History Provided By: Patient, Medical Record Healthcare decision maker self Resuscitation status Full Code Advanced Directive on File No Past Medical/Surgical History Past Medical/Surgical History: (1) Opioid dependence (2) Chronic renal insufficiency (3) back pain Review of Systems ROS Narrative unable to provide ROS due to current medical condition Physical Exam General Appearance: no apparent distress, other - somnolent, but arousable AA female in NAD Lines, tubes and drains: peripheral HEENT: normocephalic, atraumatic, anicteric, mucous membranes moist Neck: non-tender, supple Respiratory/Chest: lungs clear - with moderate air exchange , no respiratory distress, no accessory muscle use Cardiovascular/Chest: normal peripheral pulses, normal rate, regular rhythm - SR on tele , no JVD Abdomen: normal bowel sounds, non tender - obese, soft Extremities: normal range of motion, no calf tenderness Skin Exam: warm/dry Neurologic: other - somnolent, arousable, moves all extremities Last 24 Hour Vital Signs Date Time Temp Pulse Resp B/P (MAP) Pulse Ox O2 Delivery O2 Flow Rate FiO2 01/06/19 11:18 Room Air 01/06/19 08:00 97.3 82 17 143/73 (96) 99 01/06/19 06:50 97.9 73 19 146/76 (99) 100 01/06/19 06:24 98.8 76 11 163/63 100 Room Air 01/05/19 23:53 98.8 76 11 163/63 100 Room Air 01/05/19 23:36 98.8 80 18 154/72 (99) 97 Room Air Intake and Output 01/05/19 01/06/19 19:00 07:00 Intake Total 0 ml Balance 0 ml Intake Oral 0 ml Laboratory Tests Test 01/06/19 01:22 01/06/19 01:30 01/06/19 02:19 01/06/19 03:22 Sodium Level 141 MMOL/L (136-145) 141 MMOL/L (136-145) Potassium Level 6.3 MMOL/L (3.5-5.1) *H 6.3 MMOL/L (3.5-5.1) *H Chloride Level 110 MMOL/L (98-107) H 112 MMOL/L (98-107) H Carbon Dioxide Level 23 MMOL/L (21-32) 21 MMOL/L (21-32) Anion Gap 7 mmol/L (5-15) 8 mmol/L (5-15) Blood Urea Nitrogen 49 mg/dL (7-18) H 50 mg/dL (7-18) H Creatinine 3.5 MG/DL (0.55-1.30) H 3.4 MG/DL (0.55-1.30) H Estimat Glomerular Filtration Rate 15.9 mL/min (>60) 16.5 mL/min (>60) Glucose Level 91 MG/DL (74-106) 98 MG/DL (74-106) Calcium Level 8.8 MG/DL (8.5-10.1) 8.9 MG/DL (8.5-10.1) Total Bilirubin 0.2 MG/DL (0.2-1.0) 0.2 MG/DL (0.2-1.0) Aspartate Amino Transf (AST/SGOT) 24 U/L (15-37) 22 U/L (15-37) Alanine Aminotransferase (ALT/SGPT) 14 U/L (12-78) 12 U/L (12-78) Alkaline Phosphatase 184 U/L (46-116) H 176 U/L (46-116) H Total Protein 7.3 G/DL (6.4-8.2) 7.1 G/DL (6.4-8.2) Albumin 3.7 G/DL (3.4-5.0) 3.2 G/DL (3.4-5.0) L Globulin 3.6 g/dL 3.9 g/dL Albumin/Globulin Ratio 1.0 (1.0-2.7) 0.8 (1.0-2.7) L White Blood Count 7.3 K/UL (4.8-10.8) Red Blood Count 3.79 M/UL (4.20-5.40) L Hemoglobin 10.2 G/DL (12.0-16.0) L Hematocrit 33.5 % (37.0-47.0) L Mean Corpuscular Volume 88 FL (80-99) Mean Corpuscular Hemoglobin 26.9 PG (27.0-31.0) L Mean Corpuscular Hemoglobin Concent 30.5 G/DL (32.0-36.0) L Red Cell Distribution Width 16.7 % (11.6-14.8) H Platelet Count 162 K/UL (150-450) Mean Platelet Volume 7.0 FL (6.5-10.1) Neutrophils (%) (Auto) 41.9 % (45.0-75.0) L Lymphocytes (%) (Auto) 41.8 % (20.0-45.0) Monocytes (%) (Auto) 7.9 % (1.0-10.0) Eosinophils (%) (Auto) 6.3 % (0.0-3.0) H Basophils (%) (Auto) 2.1 % (0.0-2.0) H Urine Color Pale yellow Urine Appearance Clear Urine pH 8 (4.5-8.0) Urine Specific [place] 1.010 (1.005-1.035) Urine Protein 3+ (NEGATIVE) H Urine Glucose (UA) Negative (NEGATIVE) Urine Ketones Negative (NEGATIVE) Urine Blood Negative (NEGATIVE) Urine Nitrite Negative (NEGATIVE) Urine Bilirubin Negative (NEGATIVE) Urine Urobilinogen Normal MG/DL (0.0-1.0) Urine Leukocyte Esterase 1+ (NEGATIVE) H Urine RBC 0-2 /HPF (0 - 2) Urine WBC 0-2 /HPF (0 - 2) Urine Squamous Epithelial Cells Few /LPF (NONE/OCC) Urine Bacteria Occasional /HPF (NONE) Test 01/06/19 10:10 Sodium Level Pending Potassium Level Pending Chloride Level Pending Carbon Dioxide Level Pending Blood Urea Nitrogen Pending Creatinine Pending Estimat Glomerular Filtration Rate Pending Glucose Level Pending Osmolality Pending Uric Acid Pending Calcium Level Pending Phosphorus Level Pending Magnesium Level Pending Total Bilirubin Pending Aspartate Amino Transf (AST/SGOT) Pending Alanine Aminotransferase (ALT/SGPT) Pending Alkaline Phosphatase Pending Total Creatine Kinase Pending Total Protein Pending Albumin Pending Globulin Pending Free Thyroxine Pending Free Triiodothyronine Pending Cortisol Pending Height (Feet): 5 Height (Inches): 3.00 Weight (Pounds): 184 Medications Current Medications Medications (Trade) Dose Ordered Sig/Linda Route PRN Reason Start Time Stop Time Status Last Admin Dose Admin Clonidine HCl (Catapres Tab) 0.1 mg Q4H PRN ORAL SBP > 160mmHg 01/06/19 07:30 02/05/19 07:29 Dextrose (Dextrose 50%) 25 ml Q30M PRN IV Hypoglycemia 01/06/19 08:00 02/05/19 07:55 Dextrose (Dextrose 50%) 50 ml Q30M PRN IV hypoglycemia 01/06/19 08:00 02/05/19 07:59 Heparin Sodium (Porcine) (Heparin 5000 units/ml) 5,000 units EVERY 12 HOURS SUBQ 01/06/19 09:00 02/05/19 08:59 01/06/19 09:25 Iopamidol (Isovue-300 100ml) 100 ml NOW PRN INJ Radiology Procedure 01/06/19 00:30 Lorazepam (Ativan 2mg/ml 1ml) 0.5 mg Q4H PRN IV For Anxiety 01/06/19 07:30 01/13/19 07:29 Ondansetron HCl (Zofran) 4 mg Q6H PRN IVP Nausea & Vomiting 01/06/19 07:30 02/05/19 07:29 Polyethylene Glycol (Miralax) 17 gm DAILYPRN PRN ORAL Constipation 01/06/19 07:30 02/05/19 07:29 Zolpidem Tartrate (Ambien) 5 mg HSPRN PRN ORAL Insomnia 01/06/19 21:00 01/13/19 20:59 Assessment/Plan Assessment/Plan: ASSESSMENT hyperkalemia CKD , s/p nephrectomy acute on chronic back pain with hx of multiple back surgeries pelvic pain in setting of abnormal CT A/P acute metabolic encephalopathy COPD/emphysema PLAN OF CARE tele for now until hyperkalemia hyperkalemia treated , labs pending for this am if K corrected , may go to [place] floor monitor renal parameters, lytes, correct electrolytes further as needed , avoid nephrotoxic nephro eval pending patient appeared to be somnolent, CT of the head no acute intracranial pathology urine toxicology screen , possibly oversedated due to opioids judicious pain management PT eval and Rx fall precautions O2 titrate to keep pulse ox above 92%, pulmonary toilet as needed no evidence of COPD exacerbation DVT prophylaxis BP elevated, no documented hx of HTN, --> Clonidine prn CT A/P noted pelvic ultrasound due to abnormal results of CT of the abdomen /unable to do the CT abdomen with contrast supportive care bowel regimen case discussed and evaluated by supervising physician Julia Perkins NP Jan 06, 2019 11:54
[2019-01-06 12:00] VITALS: BP 157/70
[2019-01-06 12:13] LABS: ALANINE AMINOTRANSFERASE 12 U/L (12-78); ALBUMIN 3.1 G/DL (3.4-5.0); ALBUMIN/GLOBULIN RATIO 0.9 (1.0-2.7); ALKALINE PHOSPHATASE 167 U/L (46-116); ANION GAP 11 mmol/L (5-15); ASPARTATE AMINO TRANSFERASE 21 U/L (15-37); BILIRUBIN,TOTAL 0.2 MG/DL (0.2-1.0); BLOOD UREA NITROGEN 44 mg/dL (7-18); CARBON DIOXIDE 18 MMOL/L (21-32); CHLORIDE 115 MMOL/L (98-107); CREATINE KINASE 153 U/L (26-308); CREATININE 3.1 MG/DL (0.55-1.30); PHOSPHORUS 4.5 MG/DL (2.5-4.9); POTASSIUM 4.8 MMOL/L (3.5-5.1); SODIUM 144 MMOL/L (136-145)
[2019-01-06 15:51] LABS: APPEARANCE,URINE CLEAR; BILIRUBIN, URINE NEGATIVE (NEGATIVE); COLOR,URINE PALE YELLOW; GLUCOSE, URINE (UA) NEGATIVE (NEGATIVE); KETONES,URINE NEGATIVE (NEGATIVE); LEUKOCYTE ESTERASE ,URINE NEGATIVE (NEGATIVE); NITRITE,URINE NEGATIVE (NEGATIVE); PH,URINE 7 (4.5-8.0); PROTEIN,URINE 3+ (NEGATIVE); UROBILINOGEN,URINE NORMAL MG/DL (0.0-1.0)
[2019-01-06 16:00] VITALS: BP 146/65
[2019-01-06 16:01] LABS: ANION GAP 10 mmol/L (5-15); BLOOD UREA NITROGEN 44 mg/dL (7-18); CALCIUM 8.8 MG/DL (8.5-10.1); CARBON DIOXIDE 20 MMOL/L (21-32); CHLORIDE 113 MMOL/L (98-107); CREATININE 3.2 MG/DL (0.55-1.30); POTASSIUM 5.8 MMOL/L (3.5-5.1); SODIUM 143 MMOL/L (136-145)
--- NOTE | 2019-01-06 16:03 | Consultation ---
Consult Note Consult Note I was asked to evaluate for Renal failure and hyperKalemia ER: Patient is a 63-year-old female brought in by EMS after increased generalized pelvic pain as well as decreased ability to ambulate. Patient prior history of chronic low back pain as well as chronic hip pain. She had previously been on pain medications. She was noted to have no fever but states that she has been having worsening pain and had been brought in by EMS after unsuccessful attempt to reach the hospital. Patient was previously diagnosed with a urinary infection. 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 Superimposed dehydration acute on chronic back pain with hx of multiple back surgeries pelvic pain in setting of abnormal CT A/P acute metabolic encephalopathy COPD/emphysema Anemia Hydrate Drug screen urine keep bp in check monitor renal parameters per orders Ron Arango MD Jan 06, 2019 16:03
[2019-01-06] MEDS ORDERED: HydrALAZINE 25mg tab ORAL PRN (16:15)
--- NOTE | 2019-01-06 17:06 | NUR ---
PT Note PT eval completed, treatment initiated. Patient was lethargic during eval with c/o pain on the right hip/pelvic area while seated at the EOB, requiring extensive assist in mobility. Patient needs PT to increase her muscle strength and balance to improve her functional mobility. Addendum: 01/06/19 at 1707 by SUNG COOL PT Amended: Links added.
[2019-01-06] MEDS: Docusate 100mg cap ORAL SCH (18:18)
--- NOTE | 2019-01-06 19:10 | NUR ---
NURSE NOTES: Pt report received from Mike WEINBERG TELE. pt is alert and oriented times 4, able to follow commands. pt has riding double attached, showing NSR, no signs symptoms of acute cardiac distress noted. pt is on Room air, sating at 99%, no signs symptoms of acute resp distress noted. all safety preacautions are active, bed locked and low, call light within reach, bed armed. folley in place, able to drain to gravity. IV in the R upper arm able to flush, no abnormalities noted. will continue plan of care.
--- NOTE | 2019-01-06 19:15 | NUR ---
HAND-OFF: Report given to reese Rn.
[2019-01-06 20:00] VITALS: BP 159/70
[2019-01-06] MEDS ORDERED: Zolpidem 5mg tab ORAL PRN (21:00)
--- NOTE | 2019-01-06 21:02 | Consultation ---
History of Present Illness General Date patient seen: Jan 06, 2019 Chief Complaint: Pain Referring physician: dr Peterson Present Illness HPI 63 y/o F with hx of chronic low back and hip pain, anemia, pancreatitis, hiatal hernia, s/p multiple back surgeries, COPD/emphysema, CKD, s/p nephrectomy presented to ED on 01/05 with generalized pelvic pain and decreased ability to ambulate 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) FENTANYL (Verified Allergy, Unknown, Rash, 10/28/17) TRAMADOL (Unverified Allergy, Unknown, 10/28/17) ACETAMINOPHEN (Verified Adverse Reaction, Unknown, 10/28/17) abd pain Uncoded Allergies: IV CONTRAST (Allergy, Unknown, 01/06/19) Medication History Scheduled PRN Acetaminophen* (Acetaminophen Extra Strength*), 500 MG ORAL Q8H PRN for Fever/ Headache/Mild Pain Patient History Healthcare decision maker self Resuscitation status Full Code Advanced Directive on File No Patient History Narrative Pmhx: as above Shx: reviewed Fhx: non contributory Review of Systems All Other Systems: negative except mentioned in HPI Physical Exam Physical Exam Narrative General Appearance: normal inspection, alert, GCS 15, Chronically Ill Head: atraumatic 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 ENT: normal ENT inspection, hearing grossly normal, normal voice Neck: normal inspection, full range of motion, supple, no bony tend Respiratory: normal inspection, lungs clear, normal breath sounds, no respiratory distress, no retraction, no wheezing Cardiovascular : regular rate, rhythm, no edema Gastrointestinal: normal inspection, normal bowel sounds, non tender, soft, no guarding, no hernia Genitourinary: no CVA tenderness Musculoskeletal: normal inspection, back normal, normal range of motion Neurologic: normal inspection, alert, responsive, other - somnolent Psychiatric: normal inspection, judgement/insight normal, mood/affect normal Last 24 Hour Vital Signs Date Time Temp Pulse Resp B/P (MAP) Pulse Ox O2 Delivery O2 Flow Rate FiO2 01/06/19 16:00 98.1 70 17 146/65 (92) 98 01/06/19 15:30 76 01/06/19 12:00 98.2 72 18 157/70 (99) 98 01/06/19 11:31 109 01/06/19 11:18 Room Air 01/06/19 08:00 97.3 82 17 143/73 (96) 99 01/06/19 07:51 71 01/06/19 06:50 97.9 73 19 146/76 (99) 100 01/06/19 06:24 98.8 76 11 163/63 100 Room Air 01/05/19 23:53 98.8 76 11 163/63 100 Room Air 01/05/19 23:36 98.8 80 18 154/72 (99) 97 Room Air Intake and Output 01/05/19 01/06/19 19:00 07:00 Intake Total 0 ml Balance 0 ml Intake Oral 0 ml Laboratory Tests Test 01/06/19 01:22 01/06/19 01:30 01/06/19 02:19 01/06/19 03:22 Sodium Level 141 MMOL/L (136-145) 141 MMOL/L (136-145) Potassium Level 6.3 MMOL/L (3.5-5.1) *H 6.3 MMOL/L (3.5-5.1) *H Chloride Level 110 MMOL/L (98-107) H 112 MMOL/L (98-107) H Carbon Dioxide Level 23 MMOL/L (21-32) 21 MMOL/L (21-32) Anion Gap 7 mmol/L (5-15) 8 mmol/L (5-15) Blood Urea Nitrogen 49 mg/dL (7-18) H 50 mg/dL (7-18) H Creatinine 3.5 MG/DL (0.55-1.30) H 3.4 MG/DL (0.55-1.30) H Estimat Glomerular Filtration Rate 15.9 mL/min (>60) 16.5 mL/min (>60) Glucose Level 91 MG/DL (74-106) 98 MG/DL (74-106) Calcium Level 8.8 MG/DL (8.5-10.1) 8.9 MG/DL (8.5-10.1) Total Bilirubin 0.2 MG/DL (0.2-1.0) 0.2 MG/DL (0.2-1.0) Aspartate Amino Transf (AST/SGOT) 24 U/L (15-37) 22 U/L (15-37) Alanine Aminotransferase (ALT/SGPT) 14 U/L (12-78) 12 U/L (12-78) Alkaline Phosphatase 184 U/L (46-116) H 176 U/L (46-116) H Total Protein 7.3 G/DL (6.4-8.2) 7.1 G/DL (6.4-8.2) Albumin 3.7 G/DL (3.4-5.0) 3.2 G/DL (3.4-5.0) L Globulin 3.6 g/dL 3.9 g/dL Albumin/Globulin Ratio 1.0 (1.0-2.7) 0.8 (1.0-2.7) L White Blood Count 7.3 K/UL (4.8-10.8) Red Blood Count 3.79 M/UL (4.20-5.40) L Hemoglobin 10.2 G/DL (12.0-16.0) L Hematocrit 33.5 % (37.0-47.0) L Mean Corpuscular Volume 88 FL (80-99) Mean Corpuscular Hemoglobin 26.9 PG (27.0-31.0) L Mean Corpuscular Hemoglobin Concent 30.5 G/DL (32.0-36.0) L Red Cell Distribution Width 16.7 % (11.6-14.8) H Platelet Count 162 K/UL (150-450) Mean Platelet Volume 7.0 FL (6.5-10.1) Neutrophils (%) (Auto) 41.9 % (45.0-75.0) L Lymphocytes (%) (Auto) 41.8 % (20.0-45.0) Monocytes (%) (Auto) 7.9 % (1.0-10.0) Eosinophils (%) (Auto) 6.3 % (0.0-3.0) H Basophils (%) (Auto) 2.1 % (0.0-2.0) H Urine Color Pale yellow Urine Appearance Clear Urine pH 8 (4.5-8.0) Urine Specific [place] 1.010 (1.005-1.035) Urine Protein 3+ (NEGATIVE) H Urine Glucose (UA) Negative (NEGATIVE) Urine Ketones Negative (NEGATIVE) Urine Blood Negative (NEGATIVE) Urine Nitrite Negative (NEGATIVE) Urine Bilirubin Negative (NEGATIVE) Urine Urobilinogen Normal MG/DL (0.0-1.0) Urine Leukocyte Esterase 1+ (NEGATIVE) H Urine RBC 0-2 /HPF (0 - 2) Urine WBC 0-2 /HPF (0 - 2) Urine Squamous Epithelial Cells Few /LPF (NONE/OCC) Urine Bacteria Occasional /HPF (NONE) Test 01/06/19 10:10 01/06/19 15:00 01/06/19 15:38 Sodium Level 144 MMOL/L (136-145) 143 MMOL/L (136-145) Potassium Level 4.8 MMOL/L (3.5-5.1) 5.8 MMOL/L (3.5-5.1) H Chloride Level 115 MMOL/L (98-107) H 113 MMOL/L (98-107) H Carbon Dioxide Level 18 MMOL/L (21-32) L 20 MMOL/L (21-32) L Anion Gap 11 mmol/L (5-15) 10 mmol/L (5-15) Blood Urea Nitrogen 44 mg/dL (7-18) H 44 mg/dL (7-18) H Creatinine 3.1 MG/DL (0.55-1.30) H 3.2 MG/DL (0.55-1.30) H Estimat Glomerular Filtration Rate 18.3 mL/min (>60) 17.6 mL/min (>60) Glucose Level 23 MG/DL (74-106) *L 99 MG/DL (74-106) Osmolality 312 mOsm/kg (297-317) Uric Acid 7.1 MG/DL (2.6-7.2) Calcium Level 9.0 MG/DL (8.5-10.1) 8.8 MG/DL (8.5-10.1) Phosphorus Level 4.5 MG/DL (2.5-4.9) Magnesium Level 2.1 MG/DL (1.8-2.4) Total Bilirubin 0.2 MG/DL (0.2-1.0) Aspartate Amino Transf (AST/SGOT) 21 U/L (15-37) Alanine Aminotransferase (ALT/SGPT) 12 U/L (12-78) Alkaline Phosphatase 167 U/L (46-116) H Total Creatine Kinase 153 U/L (26-308) Total Protein 6.6 G/DL (6.4-8.2) Albumin 3.1 G/DL (3.4-5.0) L Globulin 3.5 g/dL Albumin/Globulin Ratio 0.9 (1.0-2.7) L Free Thyroxine 0.60 NG/DL (0.76-1.46) L Free Triiodothyronine 1.6 pg/mL (2.3-4.2) L Cortisol 8.7 UG/DL Urine Color Pale yellow Urine Appearance Clear Urine pH 7 (4.5-8.0) Urine Specific [place] 1.005 (1.005-1.035) Urine Protein 3+ (NEGATIVE) H Urine Glucose (UA) Negative (NEGATIVE) Urine Ketones Negative (NEGATIVE) Urine Blood 2+ (NEGATIVE) H Urine Nitrite Negative (NEGATIVE) Urine Bilirubin Negative (NEGATIVE) Urine Urobilinogen Normal MG/DL (0.0-1.0) Urine Leukocyte Esterase Negative (NEGATIVE) Urine RBC 0-2 /HPF (0 - 2) Urine WBC 0 /HPF (0 - 2) Urine Squamous Epithelial Cells None /LPF (NONE/OCC) Urine Bacteria None /HPF (NONE) Urine Eosinophils None seen (NONE SEEN) Urine Osmolality 322 mOsm/kg (429-449) L Urine Random Sodium 118 mmol/L (20-110) H Urine Random Chloride 113 mmol/L (55-125) Urine Potassium Timed 14 mmol/L (12-62) Urine Opiates Screen Negative (NEGATIVE) Urine Barbiturates Screen Negative (NEGATIVE) Phencyclidine (PCP) Screen Negative (NEGATIVE) Urine Amphetamines Screen Negative (NEGATIVE) Urine Benzodiazepines Screen Negative (NEGATIVE) Urine Cocaine Screen Negative (NEGATIVE) Urine Marijuana (THC) Screen Negative (NEGATIVE) Height (Feet): 5 Height (Inches): 3.00 Weight (Pounds): 184 Medications Current Medications Medications (Trade) Dose Ordered Sig/Linda Route PRN Reason Start Time Stop Time Status Last Admin Dose Admin Clonidine HCl (Catapres Tab) 0.1 mg Q4H PRN ORAL SBP > 160mmHg 01/06/19 07:30 02/05/19 07:29 Dextrose 1,000 ml @ 75 mls/hr [id number] IV 01/06/19 16:15 02/05/19 16:14 01/06/19 16:35 Dextrose (Dextrose 50%) 25 ml Q30M PRN IV Hypoglycemia 01/06/19 08:00 02/05/19 07:55 01/06/19 12:32 Dextrose (Dextrose 50%) 50 ml Q30M PRN IV hypoglycemia 01/06/19 08:00 02/05/19 07:59 Docusate Sodium (Colace) 100 mg THREE TIMES A DAY ORAL 01/06/19 18:00 02/05/19 17:59 01/06/19 18:18 Heparin Sodium (Porcine) (Heparin 5000 units/ml) 5,000 units EVERY 12 HOURS SUBQ 01/06/19 09:00 02/05/19 08:59 01/06/19 20:51 Hydralazine HCl (Apresoline) 25 mg Q4H PRN ORAL bp over 160 syst 01/06/19 16:15 02/05/19 16:14 Iopamidol (Isovue-300 100ml) 100 ml NOW PRN INJ Radiology Procedure 01/06/19 00:30 Lorazepam (Ativan 2mg/ml 1ml) 0.5 mg Q4H PRN IV For Anxiety 01/06/19 07:30 01/13/19 07:29 Ondansetron HCl (Zofran) 4 mg Q6H PRN IVP Nausea & Vomiting 01/06/19 07:30 02/05/19 07:29 Pantoprazole (Protonix) 40 mg DAILY ORAL 01/07/19 09:00 02/06/19 08:59 Polyethylene Glycol (Miralax) 17 gm DAILYPRN PRN ORAL Constipation 01/06/19 07:30 02/05/19 07:29 Zolpidem Tartrate (Ambien) 5 mg HSPRN PRN ORAL Insomnia 01/06/19 21:00 01/13/19 20:59 Assessment/Plan Assessment/Plan: Abx: None Assessment: Pelvic pain- no evidence of UTI -u/a neg Ambulatory dysfunction -CT abd/p: Limited evaluation due to the nonadministration of IV and oral contrast. 8 cm masslike soft tissue focus within the lower abdomen could represent clustered nonopacified bowel. Other pathology not excluded and evaluation limited. Further evaluation recommended. Extensive all lumbar surgery as described above. Moderate retention of fecal material Distended urinary bladder. Atherosclerotic vascular disease. Apparent bilateral nephrectomy. Posterior basal atelectasis. Hiatal hernia Afebrile No leukocytosis Encephalopathy -CT head: No acute intracranial bleed, mass effect or edema. Mild atrophy of the brain. Nonspecific white matter hypoattenuation probably due to chronic small vessel disease. Hyperkalemia chronic low back and hip pain anemia hx of pancreatitis hiatal hernia s/p multiple back surgeries COPD/emphysema CKD s/p nephrectomy Plan: -Continue to monitor off abx -f/u cx -Monitor CBC/CMP, temperatures Thank you for this consultation. Will continue to follow along with you. Discussed with SULTANA. Margarita Silver M.D. Jan 06, 2019 21:02
--- NOTE | 2019-01-06 22:40 | NUR ---
NURSE NOTES: Messaged MD Loving regarding pts Potassium 5.8, BUN 44 and Creat 3.2. pt is asymptomatic as of now, vital signs and threat monitoring analyst showing normal SR. vital signs stable. awaiting MD orders.
--- NOTE | 2019-01-06 23:19 | NUR ---
NURSE NOTES: MD Fabienne parker back, placed an order for 30mg Kayexalate 30mg PO times 1. Will establish order. Addendum: 01/06/19 at 2324 by DANIEL GODINEZ RN NURSE NOTES: MD Fabienne parker back, placed an order for 30mg Kayexalate 30GM PO times 1. Will establish order. Addendum: 01/06/19 at 2336 by DANIEL GODINEZ RN NURSE NOTES: MD Fabienne parker back, placed an order for Kayexalate 30GM PO times 1. Will establish order. order and notes placed 01.06.19
--- NOTE | 2019-01-06 23:54 | NUR ---
NURSE NOTES: Messaged MD Loving in regards to pts pain (generalized back pain, to hip, feels sharp, 10/10 pain). awaiting orders. pt vital signs are stable as of now.
[2019-01-07] VITALS: BP 158/87
--- NOTE | 2019-01-07 01:45 | History and Physical Report ---
DATE OF ADMISSION: 01/06/2019 TIME SEEN: On 01/06/2019 at 12 noon. CONSULTANTS: 1. Ron Arango M.D. 2. Darvin Loving M.D. CHIEF COMPLAINT: Hyperkalemia, renal failure, pelvic pain, chronic pain. BRIEF HISTORY: This is a 63-year-old female, who presented to [place] last night with the above-mentioned diagnoses, admitted to telemetry for further care. Currently, sleeping in bed, refusing to answer questions. REVIEW OF SYSTEMS: Not available. PAST MEDICAL HISTORY: Significant for chronic pain, low back pain, opioid use, chronic renal insufficiency. PAST SURGICAL HISTORY: Unknown. MEDICATIONS: Include , heparin, , lorazepam. ALLERGIES: Tylenol, , fentanyl, ketorolac, linezolid, morphine, and penicillin. SOCIAL HISTORY: Unable to obtain secondary to the patient's condition. PHYSICAL EXAMINATION: GENERAL: Sleeping in bed, not answering questions. VITAL SIGNS: Temperature is 97 degrees, pulse 82, respirations 17, blood pressure 143/73. CARDIOVASCULAR: No murmur. LUNGS: Distant. Poor air exchange. ABDOMEN: Bowel sounds distant. EXTREMITIES: No cyanosis, clubbing, or edema. NEUROLOGIC: The patient is flaccid in bed, not following directions. LABORATORY DATA: Labs at this time show hemoglobin and hematocrit 10/33. BMP shows chloride 115, CO2 18, BUN and creatinine 44/3.1. Glucose down to . Albumin 3.1. Urinalysis shows 1+ leukocyte esterase. ASSESSMENT: 1. Hyperkalemia, which has improved. 2. UTI. 3. Renal failure. 4. Pelvic pain. 5. Anemia. 6. Low back pain. 7. Chronic pain. 8. History of opioid use. 9. Chronic renal insufficiency. PLAN: 1. PT and dietary evaluation. 2. CBC and BMP in the morning. 3. IV fluids. 4. Antibiotics per Infectious Disease. 5. Pain control. Paras Peterson D.O. DR: MARIA L JOB#: [id number] CC:
--- NOTE | 2019-01-07 02:20 | NUR ---
NURSE NOTES: MD Talita Cardenas walked in and talked to RN about Pt. he wanted to place a verbal order for Hemo A1C (AM lab) and for Dextrose 50% IV push for Blood sugar less than 45 finger stick. However, MD Loving already placed these orders. Additionally, MD Sanon wanted to place an order for Nolog/ Insulin sliding scale (average) and ACHS Accu/ Blood sugar check. will establish orders nolog/ insulin sliding scale and BS check ACHS order.
[2019-01-07 04:00] VITALS: BP 161/79
[2019-01-07] MEDS: NovoLOG Insulin Flexpen SUBQ SCH ×2 (05:32→11:30)
--- NOTE | 2019-01-07 06:00 | NUR ---
NURSE NOTES: pt wanted to asses her belongings bag. belongings bag placed back on top of pts own drawer. however, pt decided to keep her own cell phone at bed side.
--- NOTE | 2019-01-07 06:31 | NUR ---
NURSE NOTES: Called and left a message for MD Loving in regards to pts pain. pt states she would prefer Dilaudid for pain. awaiting MD order.
--- NOTE | 2019-01-07 07:07 | NUR ---
NURSE NOTES: Pt in bed in low position, bed alarm on, call light at bedside, baseline Ox3, currently asleep with personal phone next to patient, HOB in semi fowlers, night nurse states he called Md for pain medication, IV fluids running, no s/s of distress or sob noted.
--- NOTE | 2019-01-07 07:17 | NUR ---
HAND-OFF: Report given to Mike WEINBERG TELE.
--- NOTE | 2019-01-07 07:30 | NUR ---
NURSE NOTES: MD Loving placed an order for Dilaudid 1MG IV Q4 PRN. however, due to Pts allergies, medication may need to be reconsidered. will relay to on comming Nurse Mike WEINBERG.
[2019-01-07 08:00] VITALS: BP 157/77
--- NOTE | 2019-01-07 08:27 | Pulmonology Progress Note ---
Assessment/Plan Assessment/Plan ASSESSMENT hyperkalemia CKD , s/p nephrectomy , probably acute on chronic renal failure acute on chronic back pain with hx of multiple back surgeries pelvic pain in setting of abnormal CT A/P acute metabolic encephalopathy COPD/emphysema PLAN OF CARE tele for now until hyperkalemia Hyperkalemia treated, K down to 5 if K corrected , may go to [facility] floor monitor renal parameters, lytes, correct electrolytes further as needed , avoid nephrotoxic nephro eval pending CT of the head no acute intracranial pathology urine toxicology screen negative, probably was oversedated judicious pain management recommend pain specialist consult , given multiple allergy and chronic opioid dependency PT eval and Rx fall precautions O2 titrate to keep pulse ox above 92%, pulmonary toilet as needed no evidence of COPD exacerbation DVT prophylaxis BP elevated, no documented hx of HTN, --> Clonidine prn add low dose Norvasc CT A/P noted pelvic ultrasound due to abnormal results of CT of the abdomen /unable to do the CT abdomen with contrast pelvic US was nondiagnostic - vague area of hypoechogenicity with shadowing which could be part of the bladder or the abnormality, if pain persists consider MRI, since won't be able to do CT scan with contrast as recommended by radiology supportive care bowel regimen case discussed and evaluated by supervising physician 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) FENTANYL (Verified Allergy, Unknown, Rash, 10/28/17) TRAMADOL (Unverified Allergy, Unknown, 10/28/17) ACETAMINOPHEN (Verified Adverse Reaction, Unknown, 10/28/17) abd pain Uncoded Allergies: IV CONTRAST (Allergy, Unknown, 01/06/19) Subjective more awake and alert, no further somnolence, creat down to 3 Objective Last 24 Hour Vital Signs Date Time Temp Pulse Resp B/P (MAP) Pulse Ox O2 Delivery O2 Flow Rate FiO2 7/21/19 08:06 Room Air 01/07/19 08:00 98.1 82 17 157/77 (103) 97 01/07/19 05:57 161/78 01/07/19 04:00 98.6 77 18 161/79 (106) 100 01/07/19 03:45 87 01/07/19 00:00 98.9 68 18 158/87 (110) 100 01/06/19 23:53 72 01/06/19 21:00 Room Air 01/06/19 20:00 97.9 82 17 159/70 (99) 99 01/06/19 19:32 82 01/06/19 16:00 98.1 70 17 146/65 (92) 98 01/06/19 15:30 76 01/06/19 12:00 98.2 72 18 157/70 (99) 98 01/06/19 11:31 109 01/06/19 11:18 Room Air Intake and Output 01/06/19 01/07/19 18:59 06:59 Intake Total 120 ml 750 ml Output Total 4100 ml Balance 120 ml -3350 ml Intake Oral 120 ml IV Total 750 ml Output Urine Total 4100 ml Objective General Appearance: no apparent distress, awake and alert, AA female in NAD Lines, tubes and drains: peripheral HEENT: normocephalic, atraumatic, anicteric, mucous membranes moist Neck: non-tender, supple Respiratory/Chest: lungs clear with moderate air exchange , no respiratory distress, no accessory muscle use Cardiovascular/Chest: normal peripheral pulses, normal rate, regular rhythm SR on tele , no JVD Abdomen: normal bowel sounds, non tender - obese, soft Extremities: normal range of motion, no calf tenderness Skin Exam: warm/dry Neurologic: somnolent, arousable, moves all extremities Laboratory Tests 01/06/19 10:10: Sodium Level 144, Potassium Level 4.8, Chloride Level 115H, Carbon Dioxide Level 18L, Anion Gap 11, Blood Urea Nitrogen 44H, Creatinine 3.1H, Estimat Glomerular Filtration Rate 18.3, Glucose Level 23*L, Osmolality 312, Uric Acid 7.1, Calcium Level 9.0, Phosphorus Level 4.5, Magnesium Level 2.1, Total Bilirubin 0.2, Aspartate Amino Transf (AST/SGOT) 21, Alanine Aminotransferase ( ALT/SGPT) 12, Alkaline Phosphatase 167H, Total Creatine Kinase 153, Total Protein 6.6, Albumin 3.1L, Globulin 3.5, Albumin/Globulin Ratio 0.9L, Free Thyroxine 0.60L, Free Triiodothyronine 1.6L, Cortisol 8.7 01/06/19 15:00: Urine Color Pale yellow, Urine Appearance Clear, Urine pH 7, Urine Specific [place] 1.005, Urine Protein 3+H, Urine Glucose (UA) Negative, Urine Ketones Negative, Urine Blood 2+H, Urine Nitrite Negative, Urine Bilirubin Negative, Urine Urobilinogen Normal, Urine Leukocyte Esterase Negative, Urine RBC 0-2, Urine WBC 0, Urine Squamous Epithelial Cells None, Urine Bacteria None, Urine Eosinophils None seen, Urine Osmolality 322L, Urine Random Sodium 118H, Urine Random Chloride 113, Urine Potassium Timed 14, Urine Opiates Screen Negative, Urine Barbiturates Screen Negative, Phencyclidine (PCP) Screen Negative, Urine Amphetamines Screen Negative, Urine Benzodiazepines Screen Negative, Urine Cocaine Screen Negative, Urine Marijuana (THC) Screen Negative 01/06/19 15:38: Sodium Level 143, Potassium Level 5.8H, Chloride Level 113H, Carbon Dioxide Level 20L, Anion Gap 10, Blood Urea Nitrogen 44H, Creatinine 3.2H, Estimat Glomerular Filtration Rate 17.6, Glucose Level 99, Calcium Level 8.8 Current Medications Medications (Trade) Dose Ordered Sig/Linda Route PRN Reason Start Time Stop Time Status Last Admin Dose Admin Clonidine HCl (Catapres Tab) 0.1 mg Q4H PRN ORAL SBP > 160mmHg 01/06/19 07:30 02/05/19 07:29 01/07/19 05:57 Dextrose 1,000 ml @ 75 mls/hr [id number] IV 01/06/19 16:15 02/05/19 16:14 01/07/19 05:13 Dextrose (Dextrose 50%) 25 ml Q30M PRN IV Hypoglycemia 01/06/19 08:00 02/05/19 07:55 01/06/19 12:32 Dextrose (Dextrose 50%) 50 ml Q30M PRN IV hypoglycemia 01/06/19 08:00 02/05/19 07:59 Docusate Sodium (Colace) 100 mg THREE TIMES A DAY ORAL 01/06/19 18:00 02/05/19 17:59 01/06/19 18:18 Heparin Sodium (Porcine) (Heparin 5000 units/ml) 5,000 units EVERY 12 HOURS SUBQ 01/06/19 09:00 02/05/19 08:59 01/06/19 20:51 Hydralazine HCl (Apresoline) 25 mg Q4H PRN ORAL bp over 160 syst 01/06/19 16:15 02/05/19 16:14 Insulin Aspart (NovoLOG) BEFORE MEALS AND HS SUBQ 01/07/19 06:30 02/06/19 06:29 Iopamidol (Isovue-300 100ml) 100 ml NOW PRN INJ Radiology Procedure 01/06/19 00:30 Lorazepam (Ativan 2mg/ml 1ml) 0.5 mg Q4H PRN IV For Anxiety 01/06/19 07:30 01/13/19 07:29 Ondansetron HCl (Zofran) 4 mg Q6H PRN IVP Nausea & Vomiting 01/06/19 07:30 02/05/19 07:29 Pantoprazole (Protonix) 40 mg DAILY ORAL 01/07/19 09:00 02/06/19 08:59 Polyethylene Glycol (Miralax) 17 gm DAILYPRN PRN ORAL Constipation 01/06/19 07:30 02/05/19 07:29 Sodium Polystyrene Sulfonate (Kayexalate) 30 gm ONCE ORAL 01/06/19 23:30 02/05/19 23:29 01/07/19 00:24 Zolpidem Tartrate (Ambien) 5 mg HSPRN PRN ORAL Insomnia 01/06/19 21:00 01/13/19 20:59 Julia Perkins [employer]IVE PICKER Jan 07, 2019 08:26
[2019-01-07] MEDS ORDERED: Sodium Polystyrene Sulfonate 15gm Powder ORAL SCH (08:30)
--- NOTE | 2019-01-07 09:31 | General Progress Note ---
Assessment/Plan Problem List: (1) UTI (urinary tract infection) ICD Codes: N39.0 - Urinary tract infection, site not specified SNOMED: 52305511 (2) Renal insufficiency ICD Codes: N28.9 - Disorder of kidney and ureter, unspecified SNOMED: 307422851, 413920897 (3) Low back pain (4) Opioid dependence (5) Hyperkalemia ICD Codes: E87.5 - Hyperkalemia SNOMED: 52352653 Status: unchanged Assessment/Plan: pt diet abx neph f/u cbc bmp am Subjective Constitutional: Reports: weakness 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) FENTANYL (Verified Allergy, Unknown, Rash, 10/28/17) TRAMADOL (Unverified Allergy, Unknown, 10/28/17) ACETAMINOPHEN (Verified Adverse Reaction, Unknown, 10/28/17) abd pain Uncoded Allergies: IV CONTRAST (Allergy, Unknown, 01/06/19) All Systems: reviewed and negative except above Subjective sleepy calm Objective Last 24 Hour Vital Signs Date Time Temp Pulse Resp B/P (MAP) Pulse Ox O2 Delivery O2 Flow Rate FiO2 01/07/19 08:06 Room Air 01/07/19 08:00 98.1 82 17 157/77 (103) 97 01/07/19 05:57 161/78 01/07/19 04:00 98.6 77 18 161/79 (106) 100 01/07/19 03:45 87 01/07/19 00:00 98.9 68 18 158/87 (110) 100 01/06/19 23:53 72 01/06/19 21:00 Room Air 01/06/19 20:00 97.9 82 17 159/70 (99) 99 01/06/19 19:32 82 01/06/19 16:00 98.1 70 17 146/65 (92) 98 01/06/19 15:30 76 01/06/19 12:00 98.2 72 18 157/70 (99) 98 01/06/19 11:31 109 01/06/19 11:18 Room Air Intake and Output 01/06/19 01/07/19 18:59 06:59 Intake Total 120 ml 750 ml Output Total 4100 ml Balance 120 ml -3350 ml Intake Oral 120 ml IV Total 750 ml Output Urine Total 4100 ml Laboratory Tests 01/06/19 10:10: Sodium Level 144, Potassium Level 4.8, Chloride Level 115H, Carbon Dioxide Level 18L, Anion Gap 11, Blood Urea Nitrogen 44H, Creatinine 3.1H, Estimat Glomerular Filtration Rate 18.3, Glucose Level 23*L, Osmolality 312, Uric Acid 7.1, Calcium Level 9.0, Phosphorus Level 4.5, Magnesium Level 2.1, Total Bilirubin 0.2, Aspartate Amino Transf (AST/SGOT) 21, Alanine Aminotransferase ( ALT/SGPT) 12, Alkaline Phosphatase 167H, Total Creatine Kinase 153, Total Protein 6.6, Albumin 3.1L, Globulin 3.5, Albumin/Globulin Ratio 0.9L, Free Thyroxine 0.60L, Free Triiodothyronine 1.6L, Cortisol 8.7 01/06/19 15:00: Urine Color Pale yellow, Urine Appearance Clear, Urine pH 7, Urine Specific [place] 1.005, Urine Protein 3+H, Urine Glucose (UA) Negative, Urine Ketones Negative, Urine Blood 2+H, Urine Nitrite Negative, Urine Bilirubin Negative, Urine Urobilinogen Normal, Urine Leukocyte Esterase Negative, Urine RBC 0-2, Urine WBC 0, Urine Squamous Epithelial Cells None, Urine Bacteria None, Urine Eosinophils None seen, Urine Osmolality 322L, Urine Random Sodium 118H, Urine Random Chloride 113, Urine Potassium Timed 14, Urine Opiates Screen Negative, Urine Barbiturates Screen Negative, Phencyclidine (PCP) Screen Negative, Urine Amphetamines Screen Negative, Urine Benzodiazepines Screen Negative, Urine Cocaine Screen Negative, Urine Marijuana (THC) Screen Negative 01/06/19 15:38: Sodium Level 143, Potassium Level 5.8H, Chloride Level 113H, Carbon Dioxide Level 20L, Anion Gap 10, Blood Urea Nitrogen 44H, Creatinine 3.2H, Estimat Glomerular Filtration Rate 17.6, Glucose Level 99, Calcium Level 8.8 Height (Feet): 5 Height (Inches): 3.00 Weight (Pounds): 184 General Appearance: lethargic EENT: normal ENT inspection Neck: normal alignment Cardiovascular: normal peripheral pulses, normal rate, regular rhythm Respiratory/Chest: chest wall non-tender, lungs clear, normal breath sounds Abdomen: normal bowel sounds, non tender, soft Extremities: normal inspection Edema: no edema noted Arm (L), no edema noted Arm (R), no edema noted Leg (L), no edema noted Leg (R), no edema noted Pedal (L), no edema noted Pedal (R), no edema noted Generalized Neurologic: motor weakness Skin: normal pigmentation, warm/dry Paras Peterson DO Jan 07, 2019 09:31
--- NOTE | 2019-01-07 09:59 | CDS Physician Query ---
Clarification is required for compliance, coding accuracy, and to reflect severity of illness for this patient Dear Dr. Stewart, Date:01/07/2019 Contract Lead/CDIS: Amy Martin 63 year old female admitted with elevated potassium level, and noted to have a bun of 49/50/44/44/, Creat 3.5/3.4/3.1/3.2, GFR- 15/16/18/17. CKD documented, please provide the stage of the aforementioned diagnosis and document in the succeeding progress notes. Please Clarify if you mean: Stages Description GFR [] CKD Stage 1 Caused by DM, HTN, etc. with kidney abnormality 90 mL/ min or more [] CKD Stage 2 Mild decrease in Kidney function 60 to 89 mL/min [] CKD Stage 3 Moderate decrease in kidney function 30- 59 [*] CKD Stage 4 Severe decrease in kidney function 15-29 [] CKD Stage 5 Kidney failure; requiring dialysis or transplantation < 15 [] ESRD Patient requiring dialysis for > 3 months or kidney transplant irrespective of level of GFR; Applicable for 1 year after kidney transplant [] Other: [] Comment/Explanation: Present on Admission: [*] Yes [] No [] Clinically Undetermined Physician signature Date Please also document in your Progress Notes and/or Discharge Summary and indicate if the condition was present on admission. MTDD
[2019-01-07] MEDS: Heparin 5000 units/ml inj SUBQ SCH ×2 (10:02→20:24)
[2019-01-07] MEDS: Docusate 100mg cap ORAL SCH ×3 (10:04→17:59)
[2019-01-07 10:11] LABS: BASOPHILS % (AUTO) 1.1 % (0.0-2.0); HEMATOCRIT 34.9 % (37.0-47.0); HEMOGLOBIN 10.5 G/DL (12.0-16.0); LYMPHOCYTES % (AUTO) 35.1 % (20.0-45.0); MEAN CORPUSCULAR VOLUME 89 FL (80-99); MONOCYTES % (AUTO) 3.4 % (1.0-10.0); NEUTROPHILS % (AUTO) 55.5 % (45.0-75.0); PLATELET COUNT 167 K/UL (150-450); RED BLOOD COUNT 3.94 M/UL (4.20-5.40); RED CELL DISTRIBUTION WIDTH 16.7 % (11.6-14.8); WHITE BLOOD COUNT 5.8 K/UL (4.8-10.8)
--- NOTE | 2019-01-07 10:40 | Diagnostic Imaging Report ---
Indication: Abnormal CT. Lower abdominal mass Technique: Grayscale and duplex Doppler imaging of the pelvis performed utilizing a transabdominal scan. Comparison: None Findings: Chappell catheter is present. The bladder is nondistended. There is a vague area of hypoechogenicity with shadowing which could be part of the bladder or the abnormality demonstrated above the bladder by CT. IMPRESSION: Nondiagnostic examination. Recommend follow-up contrast enhanced CT with good oral and IV contrast material
[2019-01-07 10:44] LABS: % IRON SATURATION 52 % (15-50); IRON 153 ug/dL (50-175); TOTAL IRON BINDING CAPACITY 296 ug/dL (250-450)
[2019-01-07 10:45] LABS: ALANINE AMINOTRANSFERASE 14 U/L (12-78); ALBUMIN 3.3 G/DL (3.4-5.0); ALKALINE PHOSPHATASE 169 U/L (46-116); ANION GAP 10 mmol/L (5-15); ASPARTATE AMINO TRANSFERASE 22 U/L (15-37); BILIRUBIN,TOTAL 0.4 MG/DL (0.2-1.0); BLOOD UREA NITROGEN 37 mg/dL (7-18); CALCIUM 8.9 MG/DL (8.5-10.1); CARBON DIOXIDE 20 MMOL/L (21-32); CHLORIDE 110 MMOL/L (98-107); CHOLESTEROL 198 MG/DL (< 200); FERRITIN 29 NG/ML (8-388); HDL CHOLESTEROL 84 MG/DL (40-60); SODIUM 139 MMOL/L (136-145); TRIGLYCERIDES 106 MG/DL (30-150)
[2019-01-07] MEDS ORDERED: HYDROmorphone 1mg/ml Carpuject IVP SCH (11:45)
[2019-01-07 12:00] VITALS: BP 158/82
[2019-01-07 16:01] VITALS: BP 112/67
--- NOTE | 2019-01-07 17:29 | Nephrology Progress Note ---
Assessment/Plan Problem List: (1) Renal failure (ARF), acute on chronic (2) Hyperkalemia (3) Opioid dependence (4) Anemia in chronic kidney disease (CKD) (5) History of nephrectomy Assessment hyperkalemia on presentation CKD , s/p nephrectomy ? Superimposed dehydration acute on chronic back pain with hx of multiple back surgeries pelvic pain in setting of abnormal CT A/P acute metabolic encephalopathy COPD/emphysema Anemia Plan Hydrate Drug screen urine keep bp in check monitor renal parameters per orders Subjective ROS Limited/Unobtainable: No Constitutional: Reports: malaise Objective Objective Last 24 Hour Vital Signs Date Time Temp Pulse Resp B/P (MAP) Pulse Ox O2 Delivery O2 Flow Rate FiO2 01/07/19 16:01 98.1 70 17 112/67 (82) 98 01/07/19 15:36 71 01/07/19 12:47 98.1 01/07/19 12:15 74 158/82 01/07/19 12:00 98.3 74 17 158/82 (107) 98 01/07/19 11:38 77 01/07/19 08:06 Room Air 01/07/19 08:00 98.1 82 17 157/77 (103) 97 01/07/19 07:46 76 01/07/19 05:57 161/78 01/07/19 04:00 98.6 77 18 161/79 (106) 100 01/07/19 03:45 87 01/07/19 00:00 98.9 68 18 158/87 (110) 100 01/06/19 23:53 72 01/06/19 21:00 Room Air 01/06/19 20:00 97.9 82 17 159/70 (99) 99 01/06/19 19:32 82 Intake and Output 01/06/19 01/07/19 19:00 07:00 Intake Total 120 ml 750 ml Output Total 4100 ml Balance 120 ml -3350 ml Intake Oral 120 ml IV Total 750 ml Output Urine Total 4100 ml Laboratory Tests 01/07/19 09:10: White Blood Count 5.8, Red Blood Count 3.94L, Hemoglobin 10.5L, Hematocrit 34.9L , Mean Corpuscular Volume 89, Mean Corpuscular Hemoglobin 26.8L, Mean Corpuscular Hemoglobin Concent 30.2L, Red Cell Distribution Width 16.7H, Platelet Count 167, Mean Platelet Volume 6.9, Neutrophils (%) (Auto) 55.5, Lymphocytes (%) (Auto) 35.1, Monocytes (%) (Auto) 3.4, Eosinophils (%) (Auto) 5.0H, Basophils (%) (Auto) 1.1, Sodium Level 139, Potassium Level 5.0, Chloride Level 110H, Carbon Dioxide Level 20L, Anion Gap 10, Blood Urea Nitrogen 37H, Creatinine 3.0H, Estimat Glomerular Filtration Rate 19.0, Glucose Level 99, Hemoglobin A1c 4.7, Uric Acid 6.3, Calcium Level 8.9, Phosphorus Level 5.0H, Magnesium Level 1.9, Iron Level 153, Total Iron Binding Capacity 296, Percent Iron Saturation 52H, Unsaturated Iron Binding 143, Ferritin 29, Total Bilirubin 0.4, Aspartate Amino Transf (AST/SGOT) 22, Alanine Aminotransferase (ALT/SGPT) 14, Alkaline Phosphatase 169H, C-Reactive Protein, Quantitative < 0.4, Pro-B- Type Natriuretic Peptide 1242H, Total Protein 6.5, Albumin 3.3L, Globulin 3.2, Albumin/Globulin Ratio 1.0, Triglycerides Level 106, Cholesterol Level 198, LDL Cholesterol 95, HDL Cholesterol 84H, Cholesterol/HDL Ratio 2.4L, Vitamin B12 Level 528, Folate 8.6, Thyroid Stimulating Hormone (TSH) 3.117 Height (Feet): 5 Height (Inches): 3.00 Weight (Pounds): 184 General Appearance: no apparent distress Cardiovascular: normal rate Respiratory/Chest: decreased breath sounds Abdomen: soft Ron Arango MD Jan 07, 2019 17:29
--- NOTE | 2019-01-07 19:29 | NUR ---
HAND-OFF: Report given to Toribio Foster.
--- NOTE | 2019-01-07 19:30 | NUR ---
NURSE NOTES: Got report from Mike WEINBERG. Pt in stable condition. Denies any pain. No s/s of distress or discomfort noted. Pt resting in bed comfortably. Bed in low and locked position, call light within reach, bedside table within reach. Continue to monitor.
[2019-01-07 20:00] VITALS: BP 150/83
[2019-01-08] VITALS (7 sets, daily range): BP systolic 125–158; BP diastolic 48–90
[2019-01-08] MEDS: HydrALAZINE 25mg tab ORAL PRN ×2 (00:42→09:22)
--- NOTE | 2019-01-08 07:00 | NUR ---
HAND-OFF: Report given to Mike WEINBERG. Endorsed plan of care.
--- NOTE | 2019-01-08 07:33 | General Progress Note ---
Assessment/Plan Problem List: (1) Hypoglycemia ICD Codes: E16.2 - Hypoglycemia, unspecified SNOMED: 351012894 (2) Chronic renal insufficiency ICD Codes: N18.9 - Chronic kidney disease, unspecified SNOMED: 312595259 Status: unchanged Assessment/Plan: evaluated by Dr Pak over the weekend hypoglycemia on presentation no recurrent so far - continue glucose monitoring w/o insulin coverage - hypoglycemia protocol 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) FENTANYL (Verified Allergy, Unknown, Rash, 10/28/17) TRAMADOL (Unverified Allergy, Unknown, 10/28/17) ACETAMINOPHEN (Verified Adverse Reaction, Unknown, 10/28/17) abd pain Uncoded Allergies: IV CONTRAST (Allergy, Unknown, 01/06/19) All Systems: reviewed and negative except above Subjective events noted Item Value Date Time Bedside Blood Glucose 94 mg/dl 01/08/19 0631 Bedside Blood Glucose 90 mg/dl 01/07/19 2100 Bedside Blood Glucose 81 mg/dl 01/07/19 1640 Bedside Blood Glucose 85 mg/dl 01/07/19 1130 Bedside Blood Glucose 80 mg/dl 01/07/19 0630 Objective Last 24 Hour Vital Signs Date Time Temp Pulse Resp B/P (MAP) Pulse Ox O2 Delivery O2 Flow Rate FiO2 01/08/19 04:00 97.5 83 17 149/85 (106) 96 01/08/19 04:00 72 01/08/19 02:03 148/82 (104) 01/08/19 00:42 158/90 01/08/19 00:07 97.5 75 18 158/90 (112) 96 01/08/19 00:07 76 01/07/19 21:00 Room Air 01/07/19 20:00 81 01/07/19 20:00 97.4 90 18 150/83 (105) 95 7/21/19 16:01 98.1 70 17 112/67 (82) 98 01/07/19 15:36 71 01/07/19 12:47 98.1 01/07/19 12:15 74 158/82 01/07/19 12:00 98.3 74 17 158/82 (107) 98 01/07/19 11:38 77 01/07/19 08:06 Room Air 01/07/19 08:00 98.1 82 17 157/77 (103) 97 01/07/19 07:46 76 Intake and Output 01/07/19 01/08/19 19:00 07:00 Intake Total 500 ml Output Total 750 ml 1400 ml Balance -250 ml -1400 ml Intake Oral 500 ml Output Urine Total 750 ml 1400 ml # Voids 1 Laboratory Tests 01/07/19 09:10: White Blood Count 5.8, Red Blood Count 3.94L, Hemoglobin 10.5L, Hematocrit 34.9L , Mean Corpuscular Volume 89, Mean Corpuscular Hemoglobin 26.8L, Mean Corpuscular Hemoglobin Concent 30.2L, Red Cell Distribution Width 16.7H, Platelet Count 167, Mean Platelet Volume 6.9, Neutrophils (%) (Auto) 55.5, Lymphocytes (%) (Auto) 35.1, Monocytes (%) (Auto) 3.4, Eosinophils (%) (Auto) 5.0H, Basophils (%) (Auto) 1.1, Sodium Level 139, Potassium Level 5.0, Chloride Level 110H, Carbon Dioxide Level 20L, Anion Gap 10, Blood Urea Nitrogen 37H, Creatinine 3.0H, Estimat Glomerular Filtration Rate 19.0, Glucose Level 99, Hemoglobin A1c 4.7, Uric Acid 6.3, Calcium Level 8.9, Phosphorus Level 5.0H, Magnesium Level 1.9, Iron Level 153, Total Iron Binding Capacity 296, Percent Iron Saturation 52H, Unsaturated Iron Binding 143, Ferritin 29, Total Bilirubin 0.4, Aspartate Amino Transf (AST/SGOT) 22, Alanine Aminotransferase (ALT/SGPT) 14, Alkaline Phosphatase 169H, C-Reactive Protein, Quantitative < 0.4, Pro-B- Type Natriuretic Peptide 1242H, Total Protein 6.5, Albumin 3.3L, Globulin 3.2, Albumin/Globulin Ratio 1.0, Triglycerides Level 106, Cholesterol Level 198, LDL Cholesterol 95, HDL Cholesterol 84H, Cholesterol/HDL Ratio 2.4L, Vitamin B12 Level 528, Folate 8.6, Thyroid Stimulating Hormone (TSH) 3.117 Height (Feet): 5 Height (Inches): 3.00 Weight (Pounds): 184 General Appearance: no apparent distress Neck: normal alignment Cardiovascular: normal rate Respiratory/Chest: lungs clear Abdomen: normal bowel sounds Pelvis: normal external exam Objective Current Medications Medications (Trade) Dose Ordered Sig/Linda Route PRN Reason Start Time Stop Time Status Last Admin Dose Admin Amlodipine Besylate (Norvasc) 2.5 mg DAILY ORAL 01/07/19 11:30 02/06/19 11:29 01/07/19 12:15 Clonidine HCl (Catapres Tab) 0.1 mg Q4H PRN ORAL SBP > 160mmHg 01/06/19 07:30 02/05/19 07:29 01/07/19 05:57 Dextrose 1,000 ml @ 75 mls/hr [id number] IV 01/06/19 16:15 02/05/19 16:14 01/07/19 20:22 Dextrose (Dextrose 50%) 25 ml Q30M PRN IV Hypoglycemia 01/06/19 08:00 02/05/19 07:55 01/06/19 12:32 Dextrose (Dextrose 50%) 50 ml Q30M PRN IV hypoglycemia 01/06/19 08:00 02/05/19 07:59 Docusate Sodium (Colace) 100 mg THREE TIMES A DAY ORAL 01/06/19 18:00 02/05/19 17:59 01/07/19 17:59 Heparin Sodium (Porcine) (Heparin 5000 units/ml) 5,000 units EVERY 12 HOURS SUBQ 01/06/19 09:00 02/05/19 08:59 01/06/19 20:51 Hydralazine HCl (Apresoline) 25 mg Q4H PRN ORAL BP OVER 150 SYSTOLIC 01/07/19 16:15 02/05/19 16:14 01/08/19 00:42 Iopamidol (Isovue-300 100ml) 100 ml NOW PRN INJ Radiology Procedure 01/06/19 00:30 Lorazepam (Ativan 2mg/ml 1ml) 0.5 mg Q4H PRN IV For Anxiety 01/06/19 07:30 01/13/19 07:29 01/07/19 20:30 Ondansetron HCl (Zofran) 4 mg Q6H PRN IVP Nausea & Vomiting 01/06/19 07:30 02/05/19 07:29 Pantoprazole (Protonix) 40 mg DAILY ORAL 01/07/19 09:00 02/06/19 08:59 01/07/19 10:03 Polyethylene Glycol (Miralax) 17 gm DAILYPRN PRN ORAL Constipation 01/06/19 07:30 02/05/19 07:29 Zolpidem Tartrate (Ambien) 5 mg HSPRN PRN ORAL Insomnia 01/06/19 21:00 01/13/19 20:59 Bhupinder Park MD Jan 08, 2019 07:33
--- NOTE | 2019-01-08 07:34 | NUR ---
NURSE NOTES: Pt in bed in low position, bed alarm on, call light at bedside, pt slightly asleep, base line orientation, calm and cooperative, breakfast at bedside, IV fluids running and IV intact and patent, pt is a hard stick, refused labs this morning, no s/s of distress or sob noted, consult with Pain management today.
--- NOTE | 2019-01-08 08:21 | General Progress Note ---
Assessment/Plan Assessment/Plan: (1) Lumbago (2) H/O Lumbar fusion (3) Cervicalgia (4) H/o Cervical fusion Patient will be started on Dilaudid 2mg PO 1 tab Q4H PRN pain and Robaxin 500mg PO 1 tab Q8H PRN muscle spasm D/w Dr. Hester and he concurred. Subjective Date patient seen: Jan 08, 2019 Time patient seen: 07:30 - am Constitutional: Reports: weakness HEENT: Reports: blurred vision Cardiovascular: Reports: no symptoms Respiratory: Reports: no symptoms Gastrointestinal/Abdominal: Reports: no symptoms Genitourinary: Reports: no symptoms Neurologic/Psychiatric: Reports: weakness Endocrine: Reports: no symptoms Hematologic/Lymphatic: Reports: no symptoms 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 Peterson due to Hyperkalemia with continued chronic neck and back pain. Was given a one time dose of Dilaudid 2mg IV and we were consulted so patient would have adequate pain control while here in the hospital. Objective Last 24 Hour Vital Signs Date Time Temp Pulse Resp B/P (MAP) Pulse Ox O2 Delivery O2 Flow Rate FiO2 01/08/19 04:00 97.5 83 17 149/85 (106) 96 01/08/19 04:00 72 01/08/19 02:03 148/82 (104) 01/08/19 00:42 158/90 01/08/19 00:07 97.5 75 18 158/90 (112) 96 01/08/19 00:07 76 01/07/19 21:00 Room Air 01/07/19 20:00 81 01/07/19 20:00 97.4 90 18 150/83 (105) 95 01/07/19 16:01 98.1 70 17 112/67 (82) 98 01/07/19 15:36 71 01/07/19 12:47 98.1 01/07/19 12:15 74 158/82 01/07/19 12:00 98.3 74 17 158/82 (107) 98 01/07/19 11:38 77 Intake and Output 01/07/19 01/08/19 19:00 07:00 Intake Total 500 ml Output Total 750 ml 1400 ml Balance -250 ml -1400 ml Intake Oral 500 ml Output Urine Total 750 ml 1400 ml # Voids 1 Laboratory Tests 01/07/19 09:10: White Blood Count 5.8, Red Blood Count 3.94L, Hemoglobin 10.5L, Hematocrit 34.9L , Mean Corpuscular Volume 89, Mean Corpuscular Hemoglobin 26.8L, Mean Corpuscular Hemoglobin Concent 30.2L, Red Cell Distribution Width 16.7H, Platelet Count 167, Mean Platelet Volume 6.9, Neutrophils (%) (Auto) 55.5, Lymphocytes (%) (Auto) 35.1, Monocytes (%) (Auto) 3.4, Eosinophils (%) (Auto) 5.0H, Basophils (%) (Auto) 1.1, Sodium Level 139, Potassium Level 5.0, Chloride Level 110H, Carbon Dioxide Level 20L, Anion Gap 10, Blood Urea Nitrogen 37H, Creatinine 3.0H, Estimat Glomerular Filtration Rate 19.0, Glucose Level 99, Hemoglobin A1c 4.7, Uric Acid 6.3, Calcium Level 8.9, Phosphorus Level 5.0H, Magnesium Level 1.9, Iron Level 153, Total Iron Binding Capacity 296, Percent Iron Saturation 52H, Unsaturated Iron Binding 143, Ferritin 29, Total Bilirubin 0.4, Aspartate Amino Transf (AST/SGOT) 22, Alanine Aminotransferase (ALT/SGPT) 14, Alkaline Phosphatase 169H, C-Reactive Protein, Quantitative < 0.4, Pro-B- Type Natriuretic Peptide 1242H, Total Protein 6.5, Albumin 3.3L, Globulin 3.2, Albumin/Globulin Ratio 1.0, Triglycerides Level 106, Cholesterol Level 198, LDL Cholesterol 95, HDL Cholesterol 84H, Cholesterol/HDL Ratio 2.4L, Vitamin B12 Level 528, Folate 8.6, Thyroid Stimulating Hormone (TSH) 3.117 Height (Feet): 5 Height (Inches): 3.00 Weight (Pounds): 184 General Appearance: no apparent distress, alert EENT: normal ENT inspection Neck: limited range of motion, pain on motion Cardiovascular: normal rate, regular rhythm Respiratory/Chest: decreased breath sounds Abdomen: non tender, soft Edema: trace edema Neurologic: alert, oriented x 3 Skin: normal pigmentation Zay Brady Jan 08, 2019 08:21
[2019-01-08] MEDS ORDERED: Methocarbamol 500mg tab ORAL PRN ×2 (08:30→15:42)
[2019-01-08] MEDS: Heparin 5000 units/ml inj SUBQ SCH ×2 (09:00→20:48)
[2019-01-08] MEDS: Docusate 100mg cap ORAL SCH ×3 (09:22→18:00)
[2019-01-08] MEDS: HYDROmorphone 2mg tab ORAL PRN ×3 (09:28→20:47)
--- NOTE | 2019-01-08 09:36 | General Progress Note ---
Assessment/Plan Problem List: (1) UTI (urinary tract infection) ICD Codes: N39.0 - Urinary tract infection, site not specified SNOMED: 62498706 (2) Renal insufficiency ICD Codes: N28.9 - Disorder of kidney and ureter, unspecified SNOMED: 778943140, 142942249 (3) Low back pain (4) Opioid dependence (5) Hyperkalemia ICD Codes: E87.5 - Hyperkalemia SNOMED: 44975582 Status: stable, progressing Assessment/Plan: pt diet abx neph f/u cbc bmp am dc plan w hh Subjective Constitutional: Reports: weakness 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) FENTANYL (Verified Allergy, Unknown, Rash, 10/28/17) TRAMADOL (Unverified Allergy, Unknown, 10/28/17) ACETAMINOPHEN (Verified Adverse Reaction, Unknown, 10/28/17) abd pain Uncoded Allergies: IV CONTRAST (Allergy, Unknown, 01/06/19) All Systems: reviewed and negative except above Subjective sleepy calm Objective Last 24 Hour Vital Signs Date Time Temp Pulse Resp B/P (MAP) Pulse Ox O2 Delivery O2 Flow Rate FiO2 01/08/19 09:22 154/70 01/08/19 09:22 70 154/70 01/08/19 08:29 Room Air 01/08/19 08:00 97.2 70 18 154/70 (98) 99 01/08/19 04:00 97.5 83 17 149/85 (106) 96 01/08/19 04:00 72 01/08/19 02:03 148/82 (104) 01/08/19 00:42 158/90 01/08/19 00:07 97.5 75 18 158/90 (112) 96 01/08/19 00:07 76 01/07/19 21:00 Room Air 7/21/19 20:00 81 01/07/19 20:00 97.4 90 18 150/83 (105) 95 01/07/19 16:01 98.1 70 17 112/67 (82) 98 01/07/19 15:36 71 01/07/19 12:47 98.1 01/07/19 12:15 74 158/82 01/07/19 12:00 98.3 74 17 158/82 (107) 98 01/07/19 11:38 77 Intake and Output 01/07/19 01/08/19 19:00 07:00 Intake Total 500 ml Output Total 750 ml 1400 ml Balance -250 ml -1400 ml Intake Oral 500 ml Output Urine Total 750 ml 1400 ml # Voids 1 Laboratory Tests 01/08/19 09:00: White Blood Count [Pending], Red Blood Count [Pending], Hemoglobin [Pending], Hematocrit [Pending], Mean Corpuscular Volume [Pending], Mean Corpuscular Hemoglobin [Pending], Mean Corpuscular Hemoglobin Concent [Pending], Red Cell Distribution Width [Pending], Platelet Count [Pending], Mean Platelet Volume [ Pending], Neutrophils (%) (Auto) [Pending], Lymphocytes (%) (Auto) [Pending], Monocytes (%) (Auto) [Pending], Eosinophils (%) (Auto) [Pending], Basophils (%) (Auto) [Pending], Sodium Level [Pending], Potassium Level [Pending], Chloride Level [Pending], Carbon Dioxide Level [Pending], Blood Urea Nitrogen [Pending], Creatinine [Pending], Estimat Glomerular Filtration Rate [Pending], Glucose Level [Pending], Calcium Level [Pending] Height (Feet): 5 Height (Inches): 3.00 Weight (Pounds): 184 General Appearance: lethargic EENT: normal ENT inspection Neck: normal alignment Cardiovascular: normal peripheral pulses, normal rate, regular rhythm Respiratory/Chest: chest wall non-tender, lungs clear, normal breath sounds Abdomen: normal bowel sounds, non tender, soft Extremities: normal inspection Edema: no edema noted Arm (L), no edema noted Arm (R), no edema noted Leg (L), no edema noted Leg (R), no edema noted Pedal (L), no edema noted Pedal (R), no edema noted Generalized Neurologic: motor weakness Skin: normal pigmentation, warm/dry Paras Peterson DO Jan 08, 2019 09:36
[2019-01-08 09:40] LABS: BASOPHILS % (AUTO) 1.5 % (0.0-2.0); HEMATOCRIT 34.2 % (37.0-47.0); HEMOGLOBIN 10.7 G/DL (12.0-16.0); LYMPHOCYTES % (AUTO) 33.6 % (20.0-45.0); MEAN CORPUSCULAR VOLUME 87 FL (80-99); MONOCYTES % (AUTO) 6.2 % (1.0-10.0); NEUTROPHILS % (AUTO) 54.7 % (45.0-75.0); PLATELET COUNT 151 K/UL (150-450); RED BLOOD COUNT 3.92 M/UL (4.20-5.40); RED CELL DISTRIBUTION WIDTH 16.1 % (11.6-14.8); WHITE BLOOD COUNT 7.1 K/UL (4.8-10.8)
[2019-01-08 10:21] LABS: ANION GAP 12 mmol/L (5-15); BLOOD UREA NITROGEN 44 mg/dL (7-18); CARBON DIOXIDE 19 MMOL/L (21-32); CHLORIDE 108 MMOL/L (98-107); CREATININE 3.3 MG/DL (0.55-1.30); POTASSIUM 5.1 MMOL/L (3.5-5.1); SODIUM 139 MMOL/L (136-145)
--- NOTE | 2019-01-08 10:22 | Infectious Diseases Prog Note ---
Assessment/Plan Assessment/Plan Abx: None Assessment: Pelvic pain- no evidence of UTI -u/a neg -pelvic US: Nondiagnostic examination. Recommend follow-up contrast enhanced CT with good oral and IV contrast material Ambulatory dysfunction -CT abd/p: Limited evaluation due to the nonadministration of IV and oral contrast. 8 cm masslike soft tissue focus within the lower abdomen could represent clustered nonopacified bowel. Other pathology not excluded and evaluation limited. Further evaluation recommended. Extensive all lumbar surgery as described above. Moderate retention of fecal material Distended urinary bladder. Atherosclerotic vascular disease. Apparent bilateral nephrectomy. Posterior basal atelectasis. Hiatal hernia Afebrile No leukocytosis Encephalopathy -CT head: No acute intracranial bleed, mass effect or edema. Mild atrophy of the brain. Nonspecific white matter hypoattenuation probably due to chronic small vessel disease. Hyperkalemia chronic low back and hip pain anemia hx of pancreatitis hiatal hernia s/p multiple back surgeries COPD/emphysema CKD s/p nephrectomy Plan: -Continue to monitor off abx -f/u cx -Monitor CBC/CMP, temperatures Thank you for this consultation. Will continue to follow along with you. Discussed with RN. 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) FENTANYL (Verified Allergy, Unknown, Rash, 10/28/17) TRAMADOL (Unverified Allergy, Unknown, 10/28/17) ACETAMINOPHEN (Verified Adverse Reaction, Unknown, 10/28/17) abd pain Uncoded Allergies: IV CONTRAST (Allergy, Unknown, 01/06/19) Subjective afebrile no leukocytosis off abx Objective Vital Signs Last 24 Hour Vital Signs Date Time Temp Pulse Resp B/P (MAP) Pulse Ox O2 Delivery O2 Flow Rate FiO2 01/08/19 09:22 154/70 01/08/19 09:22 70 154/70 01/08/19 08:29 Room Air 01/08/19 08:00 97.2 70 18 154/70 (98) 99 01/08/19 04:00 97.5 83 17 149/85 (106) 96 01/08/19 04:00 72 01/08/19 02:03 148/82 (104) 01/08/19 00:42 158/90 01/08/19 00:07 97.5 75 18 158/90 (112) 96 01/08/19 00:07 76 01/07/19 21:00 Room Air 01/07/19 20:00 81 01/07/19 20:00 97.4 90 18 150/83 (105) 95 01/07/19 16:01 98.1 70 17 112/67 (82) 98 01/07/19 15:36 71 01/07/19 12:47 98.1 01/07/19 12:15 74 158/82 01/07/19 12:00 98.3 74 17 158/82 (107) 98 01/07/19 11:38 77 Height (Feet): 5 Height (Inches): 3.00 Weight (Pounds): 184 Objective General Appearance: normal inspection, alert, GCS 15, Chronically Ill Head: atraumatic 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 ENT: normal ENT inspection, hearing grossly normal, normal voice Neck: normal inspection, full range of motion, supple, no bony tend Respiratory: normal inspection, lungs clear, normal breath sounds, no respiratory distress, no retraction, no wheezing Cardiovascular : regular rate, rhythm, no edema Gastrointestinal: normal inspection, normal bowel sounds, non tender, soft, no guarding, no hernia Genitourinary: no CVA tenderness Musculoskeletal: normal inspection, back normal, normal range of motion Neurologic: normal inspection, alert, responsive, other - somnolent Psychiatric: normal inspection, judgement/insight normal, mood/affect normal Laboratory Tests Test 01/08/19 09:00 White Blood Count 7.1 K/UL (4.8-10.8) Red Blood Count 3.92 M/UL (4.20-5.40) L Hemoglobin 10.7 G/DL (12.0-16.0) L Hematocrit 34.2 % (37.0-47.0) L Mean Corpuscular Volume 87 FL (80-99) Mean Corpuscular Hemoglobin 27.2 PG (27.0-31.0) Mean Corpuscular Hemoglobin Concent 31.2 G/DL (32.0-36.0) L Red Cell Distribution Width 16.1 % (11.6-14.8) H Platelet Count 151 K/UL (150-450) Mean Platelet Volume 8.0 FL (6.5-10.1) Neutrophils (%) (Auto) 54.7 % (45.0-75.0) Lymphocytes (%) (Auto) 33.6 % (20.0-45.0) Monocytes (%) (Auto) 6.2 % (1.0-10.0) Eosinophils (%) (Auto) 4.0 % (0.0-3.0) H Basophils (%) (Auto) 1.5 % (0.0-2.0) Sodium Level Pending Potassium Level Pending Chloride Level Pending Carbon Dioxide Level Pending Blood Urea Nitrogen Pending Creatinine Pending Estimat Glomerular Filtration Rate Pending Glucose Level Pending Calcium Level Pending Current Medications Medications (Trade) Dose Ordered Sig/Linda Route PRN Reason Start Time Stop Time Status Last Admin Dose Admin Amlodipine Besylate (Norvasc) 2.5 mg DAILY ORAL 01/07/19 11:30 02/06/19 11:29 01/08/19 09:22 Clonidine HCl (Catapres Tab) 0.1 mg Q4H PRN ORAL SBP > 160mmHg 01/06/19 07:30 02/05/19 07:29 01/07/19 05:57 Dextrose 1,000 ml @ 75 mls/hr [id number] IV 01/06/19 16:15 02/05/19 16:14 01/07/19 20:22 Dextrose (Dextrose 50%) 25 ml Q30M PRN IV Hypoglycemia 01/06/19 08:00 02/05/19 07:55 01/06/19 12:32 Dextrose (Dextrose 50%) 50 ml Q30M PRN IV hypoglycemia 01/06/19 08:00 02/05/19 07:59 Docusate Sodium (Colace) 100 mg THREE TIMES A DAY ORAL 01/06/19 18:00 02/05/19 17:59 01/08/19 09:22 Heparin Sodium (Porcine) (Heparin 5000 units/ml) 5,000 units EVERY 12 HOURS SUBQ 01/06/19 09:00 02/05/19 08:59 01/06/19 20:51 Hydralazine HCl (Apresoline) 25 mg Q4H PRN ORAL BP OVER 150 SYSTOLIC 01/07/19 16:15 02/05/19 16:14 01/08/19 09:22 Hydromorphone HCl (Dilaudid) 2 mg Q4H PRN ORAL severe pain 01/08/19 08:30 01/15/19 08:29 01/08/19 09:28 Iopamidol (Isovue-300 100ml) 100 ml NOW PRN INJ Radiology Procedure 01/06/19 00:30 Lorazepam (Ativan 2mg/ml 1ml) 0.5 mg Q4H PRN IV For Anxiety 01/06/19 07:30 01/13/19 07:29 01/07/19 20:30 Methocarbamol (Robaxin) 500 mg Q8H PRN ORAL muscle spasm 01/08/19 08:30 02/07/19 08:29 Ondansetron HCl (Zofran) 4 mg Q6H PRN IVP Nausea & Vomiting 01/06/19 07:30 02/05/19 07:29 Pantoprazole (Protonix) 40 mg DAILY ORAL 01/07/19 09:00 02/06/19 08:59 01/08/19 09:21 Polyethylene Glycol (Miralax) 17 gm DAILYPRN PRN ORAL Constipation 01/06/19 07:30 02/05/19 07:29 Zolpidem Tartrate (Ambien) 5 mg HSPRN PRN ORAL Insomnia 01/06/19 21:00 01/13/19 20:59 Margarita Silver M.D. Jan 08, 2019 10:22
--- NOTE | 2019-01-08 10:42 | NUR ---
CASE MANAGEMENT:REVIEW 63 YR OLD FEMALE FROM STREET CC: [employer] PAIN SI: HYPERKALEMIA. CHRONIC RENAL INSUFF 98.7 80 18 154/72 97% ON RA K+6.3 BUN+50 CR+3.4 IS: KAYEXALATE 1L NS BOLUS IV CA GLUCONATE IV INSULIN CT HEAD/ABD/PELVIS : TO TELEMETRY
--- NOTE | 2019-01-08 10:58 | NUR ---
CASE MANAGEMENT:REVIEW 01/08/19 SI; HYPERKALEMIA. PAIN AMBULATORY DYSFUNCTION 97.2 70 154/70 99% ON RA BUN+44 CR+3.3 IS: HYDRALAZINE PO Q4HRS PRN NORVASC PO QD PROTONIX PO QD IVF@75/HR HEPARIN SQ Q12HRS : TELEMETRY STATUS
--- NOTE | 2019-01-08 12:13 | Nephrology Progress Note ---
Assessment/Plan Problem List: (1) Renal failure (ARF), acute on chronic (2) Hyperkalemia (3) Opioid dependence (4) Anemia in chronic kidney disease (CKD) (5) History of nephrectomy Assessment hyperkalemia on presentation CKD , s/p nephrectomy ? Superimposed dehydration acute on chronic back pain with hx of multiple back surgeries pelvic pain in setting of abnormal CT A/P acute metabolic encephalopathy COPD/emphysema Anemia Plan Hydrate Drug screen urine keep bp in check monitor renal parameters per orders med surg Subjective ROS Limited/Unobtainable: No Constitutional: Reports: malaise, weakness Objective Objective Last 24 Hour Vital Signs Date Time Temp Pulse Resp B/P (MAP) Pulse Ox O2 Delivery O2 Flow Rate FiO2 01/08/19 09:58 97.2 01/08/19 09:22 154/70 01/08/19 09:22 70 154/70 01/08/19 08:29 Room Air 01/08/19 08:00 97.2 70 18 154/70 (98) 99 01/08/19 07:53 80 01/08/19 04:00 97.5 83 17 149/85 (106) 96 01/08/19 04:00 72 01/08/19 02:03 148/82 (104) 01/08/19 00:42 158/90 01/08/19 00:07 97.5 75 18 158/90 (112) 96 01/08/19 00:07 76 01/07/19 21:00 Room Air 01/07/19 20:00 81 01/07/19 20:00 97.4 90 18 150/83 (105) 95 01/07/19 16:01 98.1 70 17 112/67 (82) 98 01/07/19 15:36 71 01/07/19 12:47 98.1 01/07/19 12:15 74 158/82 Intake and Output 01/07/19 01/08/19 19:00 07:00 Intake Total 500 ml Output Total 750 ml 1400 ml Balance -250 ml -1400 ml Intake Oral 500 ml Output Urine Total 750 ml 1400 ml # Voids 1 Laboratory Tests 01/08/19 09:00: White Blood Count 7.1, Red Blood Count 3.92L, Hemoglobin 10.7L, Hematocrit 34.2L , Mean Corpuscular Volume 87, Mean Corpuscular Hemoglobin 27.2, Mean Corpuscular Hemoglobin Concent 31.2L, Red Cell Distribution Width 16.1H, Platelet Count 151, Mean Platelet Volume 8.0, Neutrophils (%) (Auto) 54.7, Lymphocytes (%) (Auto) 33.6, Monocytes (%) (Auto) 6.2, Eosinophils (%) (Auto) 4.0H, Basophils (%) (Auto) 1.5, Sodium Level 139, Potassium Level 5.1, Chloride Level 108H, Carbon Dioxide Level 19L, Anion Gap 12, Blood Urea Nitrogen 44H, Creatinine 3.3H, Estimat Glomerular Filtration Rate 17.0, Glucose Level 88, Calcium Level 9.0 Height (Feet): 5 Height (Inches): 3.00 Weight (Pounds): 184 General Appearance: no apparent distress Cardiovascular: normal rate Respiratory/Chest: decreased breath sounds Abdomen: soft Ron Arango MD Jan 08, 2019 12:13
--- NOTE | 2019-01-08 12:55 | Pulmonology Progress Note ---
Assessment/Plan Problems: (1) Renal failure (ARF), acute on chronic (2) Anemia in chronic kidney disease (CKD) (3) Hyperkalemia (4) Exacerbation of chronic back pain (5) Hypoglycemia (6) History of nephrectomy Assessment/Plan IV fluids check electrolytes add methadone continue dilaudid po renal f/u K is better Subjective ROS Limited/Unobtainable: No Constitutional: Reports: no symptoms HEENT: Repors: no symptoms Respiratory: Reports: no symptoms 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) FENTANYL (Verified Allergy, Unknown, Rash, 10/28/17) TRAMADOL (Unverified Allergy, Unknown, 10/28/17) ACETAMINOPHEN (Verified Adverse Reaction, Unknown, 10/28/17) abd pain Uncoded Allergies: IV CONTRAST (Allergy, Unknown, 01/06/19) Objective Last 24 Hour Vital Signs Date Time Temp Pulse Resp B/P (MAP) Pulse Ox O2 Delivery O2 Flow Rate FiO2 01/08/19 12:00 98.5 81 18 125/48 (73) 01/08/19 09:58 97.2 01/08/19 09:22 154/70 01/08/19 09:22 70 154/70 01/08/19 08:29 Room Air 01/08/19 08:00 97.2 70 18 154/70 (98) 99 01/08/19 07:53 80 01/08/19 04:00 97.5 83 17 149/85 (106) 96 01/08/19 04:00 72 01/08/19 02:03 148/82 (104) 01/08/19 00:42 158/90 01/08/19 00:07 97.5 75 18 158/90 (112) 96 01/08/19 00:07 76 01/07/19 21:00 Room Air 01/07/19 20:00 81 01/07/19 20:00 97.4 90 18 150/83 (105) 95 01/07/19 16:01 98.1 70 17 112/67 (82) 98 01/07/19 15:36 71 Intake and Output 01/07/19 01/08/19 19:00 07:00 Intake Total 500 ml Output Total 750 ml 1400 ml Balance -250 ml -1400 ml Intake Oral 500 ml Output Urine Total 750 ml 1400 ml # Voids 1 General Appearance: WD/WN HEENT: normocephalic, atraumatic Respiratory/Chest: chest wall non-tender, lungs clear, normal breath sounds Breasts: no masses Cardiovascular: normal rate Abdomen: normal bowel sounds, soft, non tender Extremities: no cyanosis Skin: no lesions 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/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: 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 II-XII grossly normal, no motor/sensory deficits Laboratory Tests 01/08/19 09:00: White Blood Count 7.1, Red Blood Count 3.92L, Hemoglobin 10.7L, Hematocrit 34.2L , Mean Corpuscular Volume 87, Mean Corpuscular Hemoglobin 27.2, Mean Corpuscular Hemoglobin Concent 31.2L, Red Cell Distribution Width 16.1H, Platelet Count 151, Mean Platelet Volume 8.0, Neutrophils (%) (Auto) 54.7, Lymphocytes (%) (Auto) 33.6, Monocytes (%) (Auto) 6.2, Eosinophils (%) (Auto) 4.0H, Basophils (%) (Auto) 1.5, Sodium Level 139, Potassium Level 5.1, Chloride Level 108H, Carbon Dioxide Level 19L, Anion Gap 12, Blood Urea Nitrogen 44H, Creatinine 3.3H, Estimat Glomerular Filtration Rate 17.0, Glucose Level 88, Calcium Level 9.0 Current Medications Medications (Trade) Dose Ordered Sig/Linda Route PRN Reason Start Time Stop Time Status Last Admin Dose Admin Amlodipine Besylate (Norvasc) 5 mg BID ORAL 01/08/19 18:00 02/06/19 11:29 Clonidine HCl (Catapres Tab) 0.1 mg Q4H PRN ORAL SBP > 160mmHg 01/06/19 07:30 02/05/19 07:29 01/07/19 05:57 Dextrose (Dextrose 50%) 25 ml Q30M PRN IV Hypoglycemia 01/06/19 08:00 02/05/19 07:55 01/06/19 12:32 Dextrose (Dextrose 50%) 50 ml Q30M PRN IV hypoglycemia 01/06/19 08:00 02/05/19 07:59 Docusate Sodium (Colace) 100 mg THREE TIMES A DAY ORAL 01/06/19 18:00 02/05/19 17:59 01/08/19 09:22 Heparin Sodium (Porcine) (Heparin 5000 units/ml) 5,000 units EVERY 12 HOURS SUBQ 01/06/19 09:00 02/05/19 08:59 01/06/19 20:51 Hydromorphone HCl (Dilaudid) 2 mg Q4H PRN ORAL severe pain 01/08/19 08:30 01/15/19 08:29 01/08/19 09:28 Iopamidol (Isovue-300 100ml) 100 ml NOW PRN INJ Radiology Procedure 01/06/19 00:30 Lactulose (Cephulac) 20 gm THREE TIMES A DAY ORAL 01/08/19 13:00 02/07/19 12:59 Lorazepam (Ativan 2mg/ml 1ml) 0.5 mg Q4H PRN IV For Anxiety 01/06/19 07:30 01/13/19 07:29 01/07/19 20:30 Methocarbamol (Robaxin) 500 mg Q8H PRN ORAL muscle spasm 01/08/19 08:30 02/07/19 08:29 Ondansetron HCl (Zofran) 4 mg Q6H PRN IVP Nausea & Vomiting 01/06/19 07:30 02/05/19 07:29 Pantoprazole (Protonix) 40 mg DAILY ORAL 01/07/19 09:00 02/06/19 08:59 01/08/19 09:21 Polyethylene Glycol (Miralax) 17 gm DAILYPRN PRN ORAL Constipation 01/06/19 07:30 02/05/19 07:29 Zolpidem Tartrate (Ambien) 5 mg HSPRN PRN ORAL Insomnia 01/06/19 21:00 01/13/19 20:59 Darvin Loving MD Jan 08, 2019 12:55
[2019-01-08] MEDS ORDERED: Lactulose 20gm/30ml UDC ORAL SCH (13:00)
--- NOTE | 2019-01-08 14:57 | NUR ---
MRI LUMBAR COMPLETED.
[2019-01-08] MEDS ORDERED: LORazepam 0.5mg tab ORAL PRN ×2 (15:00→15:42)
[2019-01-08] MEDS ORDERED: Isovue-300 100ml vial INJ PRN (15:42)
[2019-01-08] MEDS ORDERED: Miralax 17gm pkt ORAL PRN (15:43)
--- NOTE | 2019-01-08 16:00 | NUR ---
NURSE NOTES: Mike WEINBERG brought patient by bed in stable condition. Alert and oriented x4. Complain of pain 6/10 and pain medication given by Mike WEINBERG. Will continue to monitor. No IV access and MD aware. Belonging checked with patient and Mike WEINBERG. Bed lowest position. Call light within reach. Will continue to monitor.
--- NOTE | 2019-01-08 16:26 | Diagnostic Imaging Report ---
Indication: Chronic low back and hip pain Technique: Sagittal T1 and T2 fast spin echo, sagittal STIR, axial T1 and T2 fast spin-echo images of the lumbar spine Comparison: Lumbar spine CT dated 03/13/2013 Findings: There is lumbar spine fusion hardware bridging L2, L3, L4, and L5, as well as anterior fusion hardware bridging L5-S1. This throws off considerable susceptibility artifact which limits visualization. 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 There is degenerative narrowing of the T12-L1 disc, with surrounding marked Modic type II fatty marrow change. There is mild narrowing of the remaining disc spaces. There is some Modic type II degenerative marrow change on both sides of the L4-5 disc. The remaining marrow signal is grossly normal. The bony alignment is grossly normal. The vertebral body heights are preserved. The conus medullaris terminates at the L1-2 level. At T11-12, posterior osteophytes result in borderline narrowing of the spinal canal. At T12-L1, there is a posterior osteophyte which results in mild narrowing of the spinal canal at this level. There is moderate bilateral neural foraminal stenosis at this level. At L1-2, there is mild degenerative disc narrowing. No significant disc bulge or protrusion or spinal stenosis. There is mild narrowing of the left neural foramen. At L2-3, there is mild degenerative disc narrowing. No significant disc bulge or protrusion or evidence of spinal canal stenosis. Susceptibility artifact from the hardware obscures the neural foramina and precludes evaluation of such. At L3-4, there is mild degenerative disc narrowing. No significant disc bulge or protrusion or spinal canal stenosis. Susceptibility artifact from the hardware precludes evaluation of the neural foramina At L4-5, there is slight asymmetry of the shape of the spinal canal which may be due to the pattern of ankylosis of the posterior elements, but this does not appear to result in any significant spinal canal stenosis. There is moderate degenerative disc narrowing. Due to susceptibility artifact, the neural foramina cannot be assessed. At L5-S1, the spinal canal appears congenitally mildly narrowed, minimum AP dimension 9 mm. There is suggestion of moderate narrowing of the bilateral neural foramina, although these are not optimally visualized. No significant disc bulge or protrusion. 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 There is suggestion of a small cervical fibroid within the uterus. Impression: Limited exam, due to susceptibility artifact from extensive fusion hardware Postsurgical changes as described above and previously Borderline canal stenosis at T12-L1 as well as T11-T12, also evident on prior 2013 CT scan Borderline canal stenosis at L5-S1, also evident on prior CT scan No evidence of significant canal stenosis elsewhere. Note inability to evaluate neural foramina or integrity of posterior osseous fusion. Consider CT scan for better characterization of these if clinically indicated.
[2019-01-08] MEDS: Lactulose 20gm/30ml UDC ORAL SCH (18:00)
--- NOTE | 2019-01-08 19:30 | NUR ---
HAND-OFF: Report given to Gissel SOUZA. Patient in stable condition.
--- NOTE | 2019-01-08 19:30 | NUR ---
NURSE NOTES:Patient received Jose Ramon Duarte Patient A/A/OX4 .Patient c/o pain 12/27 . Pain managed with pain medications Patient no s/s of distress noted .Patient no IV access MD aware.safety. fall precautions , call light within reach . bed in low position .bed alarm on .will continue to monitor. Addendum: 01/09/19 at 0536 by RETA BONILLA LVN Patient le catheter infusing well to yellow urine.
--- NOTE | 2019-01-08 20:40 | Cardiology Report ---
APPROVED REPORT EKG Measurement Heart [id number] Normal sinus rhythm Normal ECG
[2019-01-08] MEDS ORDERED: Zolpidem 5mg tab ORAL PRN (21:00)
[2019-01-09] VITALS: BP 149/62
[2019-01-09 04:00] VITALS: BP 147/70
[2019-01-09 06:55] LABS: BASOPHILS % (AUTO) 1.8 % (0.0-2.0); EOSINOPHILS % (AUTO) 5.2 % (0.0-3.0); HEMATOCRIT 30.6 % (37.0-47.0); HEMOGLOBIN 9.3 G/DL (12.0-16.0); LYMPHOCYTES % (AUTO) 29.1 % (20.0-45.0); MEAN CORPUSCULAR VOLUME 89 FL (80-99); MONOCYTES % (AUTO) 5.5 % (1.0-10.0); NEUTROPHILS % (AUTO) 58.3 % (45.0-75.0); PLATELET COUNT 152 K/UL (150-450); RED BLOOD COUNT 3.45 M/UL (4.20-5.40); RED CELL DISTRIBUTION WIDTH 16.6 % (11.6-14.8); WHITE BLOOD COUNT 7.5 K/UL (4.8-10.8)
[2019-01-09 07:25] LABS: ANION GAP 10 mmol/L (5-15); BLOOD UREA NITROGEN 40 mg/dL (7-18); CALCIUM 9.1 MG/DL (8.5-10.1); CARBON DIOXIDE 21 MMOL/L (21-32); CHLORIDE 107 MMOL/L (98-107); CREATININE 3.5 MG/DL (0.55-1.30); SODIUM 138 MMOL/L (136-145)
--- NOTE | 2019-01-09 07:28 | NUR ---
HAND-OFF: Report given to Rosie Duarte
--- NOTE | 2019-01-09 07:28 | General Progress Note ---
Assessment/Plan Problem List: (1) Hypoglycemia ICD Codes: E16.2 - Hypoglycemia, unspecified SNOMED: 540668955 (2) Chronic renal insufficiency ICD Codes: N18.9 - Chronic kidney disease, unspecified SNOMED: 684010188 Status: stable, progressing Assessment/Plan: hypoglycemia on presentation after hyperkalemia treated with insulin no recurrent so far - glucose values on low normal side - continue glucose monitoring w/o insulin coverage - hypoglycemia protocol 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) FENTANYL (Verified Allergy, Unknown, Rash, 10/28/17) TRAMADOL (Unverified Allergy, Unknown, 10/28/17) ACETAMINOPHEN (Verified Adverse Reaction, Unknown, 10/28/17) abd pain Uncoded Allergies: IV CONTRAST (Allergy, Unknown, 01/06/19) All Systems: reviewed and negative except above Subjective events noted Item Value Date Time Bedside Blood Glucose 92 mg/dl 01/09/19 0630 Bedside Blood Glucose 96 mg/dl 01/08/19 2100 Bedside Blood Glucose 97 mg/dl 01/08/19 1630 Bedside Blood Glucose 93 mg/dl 01/08/19 1150 Bedside Blood Glucose 94 mg/dl 01/08/19 0631 Objective Last 24 Hour Vital Signs Date Time Temp Pulse Resp B/P (MAP) Pulse Ox O2 Delivery O2 Flow Rate FiO2 01/09/19 04:00 98.2 83 18 147/70 (95) 97 83 01/09/19 00:00 98.2 80 17 149/62 (91) 97 01/08/19 21:17 98.0 01/08/19 21:00 Room Air 01/08/19 20:00 98.4 88 18 140/68 (92) 95 01/08/19 20:00 01/08/19 18:29 99 130/83 01/08/19 16:00 98.0 99 20 130/83 (99) 98 01/08/19 15:33 98.5 01/08/19 12:00 98.5 81 18 125/48 (73) 01/08/19 11:46 80 01/08/19 09:22 154/70 01/08/19 09:22 70 154/70 01/08/19 08:29 Room Air 01/08/19 08:00 97.2 70 18 154/70 (98) 99 01/08/19 07:53 80 Intake and Output 01/08/19 01/09/19 19:00 07:00 Intake Total 510 ml 1240 ml Output Total 300 ml 1000 ml Balance 210 ml 240 ml Intake Oral 510 ml 1240 ml Output Urine Total 300 ml 1000 ml # Voids 1 # Bowel Movements 1 Laboratory Tests 01/08/19 09:00: White Blood Count 7.1, Red Blood Count 3.92L, Hemoglobin 10.7L, Hematocrit 34.2L , Mean Corpuscular Volume 87, Mean Corpuscular Hemoglobin 27.2, Mean Corpuscular Hemoglobin Concent 31.2L, Red Cell Distribution Width 16.1H, Platelet Count 151, Mean Platelet Volume 8.0, Neutrophils (%) (Auto) 54.7, Lymphocytes (%) (Auto) 33.6, Monocytes (%) (Auto) 6.2, Eosinophils (%) (Auto) 4.0H, Basophils (%) (Auto) 1.5, Sodium Level 139, Potassium Level 5.1, Chloride Level 108H, Carbon Dioxide Level 19L, Anion Gap 12, Blood Urea Nitrogen 44H, Creatinine 3.3H, Estimat Glomerular Filtration Rate 17.0, Glucose Level 88, Calcium Level 9.0 01/09/19 06:40: White Blood Count 7.5, Red Blood Count 3.45L, Hemoglobin 9.3L, Hematocrit 30.6L , Mean Corpuscular Volume 89, Mean Corpuscular Hemoglobin 26.8L, Mean Corpuscular Hemoglobin Concent 30.3L, Red Cell Distribution Width 16.6H, Platelet Count 152, Mean Platelet Volume 7.2, Neutrophils (%) (Auto) 58.3, Lymphocytes (%) (Auto) 29.1, Monocytes (%) (Auto) 5.5, Eosinophils (%) (Auto) 5.2H, Basophils (%) (Auto) 1.8, Sodium Level 138, Potassium Level 4.0, Chloride Level 107, Carbon Dioxide Level 21, Anion Gap 10, Blood Urea Nitrogen 40H, Creatinine 3.5H, Estimat Glomerular Filtration Rate 15.9, Glucose Level 118H, Calcium Level 9.1 Height (Feet): 5 Height (Inches): 3.00 Weight (Pounds): 184 General Appearance: no apparent distress Neck: normal alignment Cardiovascular: normal rate Respiratory/Chest: lungs clear Abdomen: normal bowel sounds Objective Current Medications Medications (Trade) Dose Ordered Sig/Linda Route PRN Reason Start Time Stop Time Status Last Admin Dose Admin Amlodipine Besylate (Norvasc) 5 mg BID ORAL 01/08/19 18:00 02/06/19 11:29 01/08/19 18:29 Clonidine HCl (Catapres Tab) 0.1 mg Q4H PRN ORAL SBP > 160mmHg 01/08/19 15:41 02/07/19 15:40 Dextrose (Dextrose 50%) 25 ml Q30M PRN IV Hypoglycemia 01/08/19 16:00 02/05/19 07:55 Dextrose (Dextrose 50%) 50 ml Q30M PRN IV hypoglycemia 01/08/19 16:00 02/05/19 07:59 Docusate Sodium (Colace) 100 mg THREE TIMES A DAY ORAL 01/08/19 18:00 02/05/19 17:59 Heparin Sodium (Porcine) (Heparin 5000 units/ml) 5,000 units EVERY 12 HOURS SUBQ 01/08/19 21:00 02/05/19 08:59 Hydromorphone HCl (Dilaudid) 2 mg Q4H PRN ORAL severe pain 01/08/19 15:42 01/15/19 15:41 01/08/19 20:47 Iopamidol (Isovue-300 100ml) 100 ml NOW PRN INJ Radiology Procedure 01/08/19 15:42 01/09/19 23:59 Lactulose (Cephulac) 20 gm THREE TIMES A DAY ORAL 01/08/19 18:00 02/07/19 12:59 Lorazepam (Ativan) 0.5 mg Q6H PRN ORAL For Anxiety 01/08/19 15:42 01/15/19 15:41 01/09/19 00:56 Methadone HCl (Methadone HCl) 5 mg Q6HR ORAL 01/08/19 18:00 01/15/19 12:55 01/09/19 06:16 Methocarbamol (Robaxin) 500 mg Q8H PRN ORAL muscle spasm 01/08/19 15:42 02/07/19 15:41 Ondansetron HCl (Zofran) 4 mg Q6H PRN IVP Nausea & Vomiting 01/08/19 15:43 02/07/19 15:42 Pantoprazole (Protonix) 40 mg DAILY ORAL 01/09/19 09:00 02/06/19 08:59 Polyethylene Glycol (Miralax) 17 gm DAILYPRN PRN ORAL Constipation 01/08/19 15:43 02/07/19 15:42 Zolpidem Tartrate (Ambien) 5 mg HSPRN PRN ORAL Insomnia 01/08/19 21:00 01/13/19 20:59 Bhupinder Park MD Jan 09, 2019 07:28
[2019-01-09] MEDS: HYDROmorphone 2mg tab ORAL PRN ×2 (07:59→20:32)
[2019-01-09 08:00] VITALS: BP 127/73
--- NOTE | 2019-01-09 08:02 | NUR ---
NURSE NOTES: AWAKE/ALERT. PAIN SCALE 10/10. GIVEN DILAUDID 2MG PO FOR BACK PAIN. IN NO ACUTE DISTRESS.
[2019-01-09] MEDS: Docusate 100mg cap ORAL SCH ×3 (08:39→17:46)
[2019-01-09] MEDS: Lactulose 20gm/30ml UDC ORAL SCH ×3 (08:40→17:46)
[2019-01-09] MEDS: Heparin 5000 units/ml inj SUBQ SCH ×2 (08:40→20:23)
[2019-01-09 12:00] VITALS: BP 149/67
--- NOTE | 2019-01-09 12:03 | Pulmonology Progress Note ---
Assessment/Plan Problems: (1) Renal failure (ARF), acute on chronic (2) Anemia in chronic kidney disease (CKD) (3) Hyperkalemia (4) Exacerbation of chronic back pain (5) Hypoglycemia (6) History of nephrectomy Assessment/Plan MRI of L spine reviewed, lots of artifacts IV fluids check electrolytes add methadone continue dilaudid po renal f/u K is better Subjective ROS Limited/Unobtainable: No Constitutional: Reports: no symptoms HEENT: Repors: no symptoms Respiratory: Reports: no symptoms 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) FENTANYL (Verified Allergy, Unknown, Rash, 10/28/17) TRAMADOL (Unverified Allergy, Unknown, 10/28/17) ACETAMINOPHEN (Verified Adverse Reaction, Unknown, 10/28/17) abd pain Uncoded Allergies: IV CONTRAST (Allergy, Unknown, 01/06/19) Objective Last 24 Hour Vital Signs Date Time Temp Pulse Resp B/P (MAP) Pulse Ox O2 Delivery O2 Flow Rate FiO2 01/09/19 08:39 72 127/73 01/09/19 08:29 98.2 01/09/19 08:21 Room Air 01/09/19 08:00 97.4 72 20 127/73 (91) 96 01/09/19 04:00 98.2 83 18 147/70 (95) 97 83 01/09/19 00:00 98.2 80 17 149/62 (91) 97 01/08/19 21:00 Room Air 01/08/19 20:00 98.4 88 18 140/68 (92) 95 01/08/19 20:00 01/08/19 18:29 99 130/83 01/08/19 16:00 98.0 99 20 130/83 (99) 98 01/08/19 15:33 98.5 Intake and Output 01/08/19 01/09/19 19:00 07:00 Intake Total 510 ml 1240 ml Output Total 300 ml 1000 ml Balance 210 ml 240 ml Intake Oral 510 ml 1240 ml Output Urine Total 300 ml 1000 ml # Voids 1 # Bowel Movements 1 General Appearance: WD/WN HEENT: normocephalic, atraumatic Respiratory/Chest: chest wall non-tender, lungs clear Breasts: no masses Cardiovascular: normal peripheral pulses, normal rate Abdomen: normal bowel sounds, soft, non tender, no scars Extremities: no cyanosis Skin: no rash Laboratory Tests 01/09/19 06:40: White Blood Count 7.5, Red Blood Count 3.45L, Hemoglobin 9.3L, Hematocrit 30.6L , Mean Corpuscular Volume 89, Mean Corpuscular Hemoglobin 26.8L, Mean Corpuscular Hemoglobin Concent 30.3L, Red Cell Distribution Width 16.6H, Platelet Count 152, Mean Platelet Volume 7.2, Neutrophils (%) (Auto) 58.3, Lymphocytes (%) (Auto) 29.1, Monocytes (%) (Auto) 5.5, Eosinophils (%) (Auto) 5.2H, Basophils (%) (Auto) 1.8, Sodium Level 138, Potassium Level 4.0, Chloride Level 107, Carbon Dioxide Level 21, Anion Gap 10, Blood Urea Nitrogen 40H, Creatinine 3.5H, Estimat Glomerular Filtration Rate 15.9, Glucose Level 118H, Calcium Level 9.1 Current Medications Medications (Trade) Dose Ordered Sig/Linda Route PRN Reason Start Time Stop Time Status Last Admin Dose Admin Amlodipine Besylate (Norvasc) 5 mg BID ORAL 01/08/19 18:00 02/06/19 11:29 01/09/19 08:39 Clonidine HCl (Catapres Tab) 0.1 mg Q4H PRN ORAL SBP > 160mmHg 01/08/19 15:41 02/07/19 15:40 Dextrose (Dextrose 50%) 25 ml Q30M PRN IV Hypoglycemia 01/08/19 16:00 02/05/19 07:55 Dextrose (Dextrose 50%) 50 ml Q30M PRN IV hypoglycemia 01/08/19 16:00 02/05/19 07:59 Docusate Sodium (Colace) 100 mg THREE TIMES A DAY ORAL 01/08/19 18:00 02/05/19 17:59 01/09/19 08:39 Heparin Sodium (Porcine) (Heparin 5000 units/ml) 5,000 units EVERY 12 HOURS SUBQ 01/08/19 21:00 02/05/19 08:59 Hydromorphone HCl (Dilaudid) 2 mg Q4H PRN ORAL severe pain 01/08/19 15:42 01/15/19 15:41 01/09/19 07:59 Iopamidol (Isovue-300 100ml) 100 ml NOW PRN INJ Radiology Procedure 01/08/19 15:42 01/09/19 23:59 Lactulose (Cephulac) 20 gm THREE TIMES A DAY ORAL 01/08/19 18:00 02/07/19 12:59 Lorazepam (Ativan) 0.5 mg Q6H PRN ORAL For Anxiety 01/08/19 15:42 01/15/19 15:41 01/09/19 00:56 Methadone HCl (Methadone HCl) 5 mg Q6HR ORAL 01/08/19 18:00 01/15/19 12:55 01/09/19 06:16 Methocarbamol (Robaxin) 500 mg Q8H PRN ORAL muscle spasm 01/08/19 15:42 02/07/19 15:41 Ondansetron HCl (Zofran) 4 mg Q6H PRN IVP Nausea & Vomiting 01/08/19 15:43 02/07/19 15:42 Pantoprazole (Protonix) 40 mg DAILY ORAL 01/09/19 09:00 02/06/19 08:59 01/09/19 08:38 Polyethylene Glycol (Miralax) 17 gm DAILYPRN PRN ORAL Constipation 01/08/19 15:43 02/07/19 15:42 Zolpidem Tartrate (Ambien) 5 mg HSPRN PRN ORAL Insomnia 01/08/19 21:00 01/13/19 20:59 Darvin Loving MD Jan 09, 2019 12:03
--- NOTE | 2019-01-09 12:46 | Infectious Diseases Prog Note ---
Assessment/Plan Assessment/Plan Abx: None Assessment: Pelvic pain- no evidence of UTI -u/a neg -pelvic US: Nondiagnostic examination. Recommend follow-up contrast enhanced CT with good oral and IV contrast material -CT abd/p: Limited evaluation due to the nonadministration of IV and oral contrast. 8 cm masslike soft tissue focus within the lower abdomen could represent clustered nonopacified bowel. Other pathology not excluded and evaluation limited. Further evaluation recommended. Extensive all lumbar surgery as described above. Moderate retention of fecal material Distended urinary bladder. Atherosclerotic vascular disease. Apparent bilateral nephrectomy. Posterior basal atelectasis. Hiatal hernia -Addendum: There is questionable evidence of prior right nephrectomy. Densities in the right renal bed may represent surgical clips, and there is a structure that may represent a blind-ending right ureter. In the pelvic midline and just to the left of midline, the soft tissue masslike opacity described concurrent is actually a kidney. Per discussion with referring physician, patient does not have a history of renal transplant, and the location is not typical for renal transplant, so this presumably represents an ectopic kidney. 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 The ureter is dilated Also noted is a 2 mm calcification that may be in the bladder lumen on the left. If so, it appears slightly remote from the ureteral orifice so if intraluminal could represent a recently passed ureteral calculus. Ambulatory dysfunction -MRI L spine: Limited exam, due to susceptibility artifact from extensive fusion hardware. Postsurgical changes as described above and previously. Borderline canal stenosis at T12-L1 as well as T11-T12, also evident on prior 2012 CT scan. Borderline canal stenosis at L5-S1, also evident on prior CT scan. No evidence of significant canal stenosis elsewhere. Note inability to evaluate neural foramina or integrity of posterior osseous fusion. Afebrile No leukocytosis Encephalopathy -CT head: No acute intracranial bleed, mass effect or edema. Mild atrophy of the brain. Nonspecific white matter hypoattenuation probably due to chronic small vessel disease. Hyperkalemia chronic low back and hip pain anemia hx of pancreatitis hiatal hernia s/p multiple back surgeries COPD/emphysema CKD s/p nephrectomy Plan: -Continue to monitor off abx -f/u cx -Monitor CBC/CMP, temperatures Thank you for this consultation. Will continue to follow along with you. Discussed with RN. 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) FENTANYL (Verified Allergy, Unknown, Rash, 10/28/17) TRAMADOL (Unverified Allergy, Unknown, 10/28/17) ACETAMINOPHEN (Verified Adverse Reaction, Unknown, 10/28/17) abd pain Uncoded Allergies: IV CONTRAST (Allergy, Unknown, 01/06/19) Subjective afebrile no leukocytosis off abx Objective Vital Signs Last 24 Hour Vital Signs Date Time Temp Pulse Resp B/P (MAP) Pulse Ox O2 Delivery O2 Flow Rate FiO2 01/09/19 12:00 98.1 78 18 149/67 (94) 98 01/09/19 08:39 72 127/73 01/09/19 08:29 98.2 01/09/19 08:21 Room Air 01/09/19 08:00 97.4 72 20 127/73 (91) 96 01/09/19 04:00 98.2 83 18 147/70 (95) 97 83 01/09/19 00:00 98.2 80 17 149/62 (91) 97 01/08/19 21:00 Room Air 01/08/19 20:00 98.4 88 18 140/68 (92) 95 01/08/19 20:00 01/08/19 18:29 99 130/83 01/08/19 16:00 98.0 99 20 130/83 (99) 98 01/08/19 15:33 98.5 Height (Feet): 5 Height (Inches): 3.00 Weight (Pounds): 184 Objective General Appearance: normal inspection, alert, GCS 15, Chronically Ill Head: atraumatic 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 ENT: normal ENT inspection, hearing grossly normal, normal voice Neck: normal inspection, full range of motion, supple, no bony tend Respiratory: normal inspection, lungs clear, normal breath sounds, no respiratory distress, no retraction, no wheezing Cardiovascular : regular rate, rhythm, no edema Gastrointestinal: normal inspection, normal bowel sounds, non tender, soft, no guarding, no hernia Genitourinary: no CVA tenderness Musculoskeletal: normal inspection, back normal, normal range of motion Neurologic: normal inspection, alert, responsive, other - somnolent Psychiatric: normal inspection, judgement/insight normal, mood/affect normal Laboratory Tests Test 01/09/19 06:40 White Blood Count 7.5 K/UL (4.8-10.8) Red Blood Count 3.45 M/UL (4.20-5.40) L Hemoglobin 9.3 G/DL (12.0-16.0) L Hematocrit 30.6 % (37.0-47.0) L Mean Corpuscular Volume 89 FL (80-99) Mean Corpuscular Hemoglobin 26.8 PG (27.0-31.0) L Mean Corpuscular Hemoglobin Concent 30.3 G/DL (32.0-36.0) L Red Cell Distribution Width 16.6 % (11.6-14.8) H Platelet Count 152 K/UL (150-450) Mean Platelet Volume 7.2 FL (6.5-10.1) Neutrophils (%) (Auto) 58.3 % (45.0-75.0) Lymphocytes (%) (Auto) 29.1 % (20.0-45.0) Monocytes (%) (Auto) 5.5 % (1.0-10.0) Eosinophils (%) (Auto) 5.2 % (0.0-3.0) H Basophils (%) (Auto) 1.8 % (0.0-2.0) Sodium Level 138 MMOL/L (136-145) Potassium Level 4.0 MMOL/L (3.5-5.1) Chloride Level 107 MMOL/L (98-107) Carbon Dioxide Level 21 MMOL/L (21-32) Anion Gap 10 mmol/L (5-15) Blood Urea Nitrogen 40 mg/dL (7-18) H Creatinine 3.5 MG/DL (0.55-1.30) H Estimat Glomerular Filtration Rate 15.9 mL/min (>60) Glucose Level 118 MG/DL (74-106) H Calcium Level 9.1 MG/DL (8.5-10.1) Current Medications Medications (Trade) Dose Ordered Sig/Linda Route PRN Reason Start Time Stop Time Status Last Admin Dose Admin Amlodipine Besylate (Norvasc) 5 mg BID ORAL 01/08/19 18:00 02/06/19 11:29 01/09/19 08:39 Clonidine HCl (Catapres Tab) 0.1 mg Q4H PRN ORAL SBP > 160mmHg 01/08/19 15:41 02/07/19 15:40 Dextrose (Dextrose 50%) 25 ml Q30M PRN IV Hypoglycemia 01/08/19 16:00 02/05/19 07:55 Dextrose (Dextrose 50%) 50 ml Q30M PRN IV hypoglycemia 01/08/19 16:00 02/05/19 07:59 Docusate Sodium (Colace) 100 mg THREE TIMES A DAY ORAL 01/08/19 18:00 02/05/19 17:59 01/09/19 12:29 Heparin Sodium (Porcine) (Heparin 5000 units/ml) 5,000 units EVERY 12 HOURS SUBQ 01/08/19 21:00 02/05/19 08:59 Hydromorphone HCl (Dilaudid) 2 mg Q4H PRN ORAL severe pain 01/08/19 15:42 01/15/19 15:41 01/09/19 07:59 Iopamidol (Isovue-300 100ml) 100 ml NOW PRN INJ Radiology Procedure 01/08/19 15:42 01/09/19 23:59 Lactulose (Cephulac) 20 gm THREE TIMES A DAY ORAL 01/08/19 18:00 02/07/19 12:59 Lorazepam (Ativan) 0.5 mg Q6H PRN ORAL For Anxiety 01/08/19 15:42 01/15/19 15:41 01/09/19 00:56 Methadone HCl (Methadone HCl) 10 mg Q6HR ORAL 01/09/19 12:00 01/15/19 11:59 01/09/19 12:29 Methocarbamol (Robaxin) 500 mg Q8H PRN ORAL muscle spasm 01/08/19 15:42 02/07/19 15:41 Ondansetron HCl (Zofran) 4 mg Q6H PRN IVP Nausea & Vomiting 01/08/19 15:43 02/07/19 15:42 Pantoprazole (Protonix) 40 mg DAILY ORAL 01/09/19 09:00 02/06/19 08:59 01/09/19 08:38 Polyethylene Glycol (Miralax) 17 gm DAILYPRN PRN ORAL Constipation 01/08/19 15:43 02/07/19 15:42 Zolpidem Tartrate (Ambien) 5 mg HSPRN PRN ORAL Insomnia 01/08/19 21:00 01/13/19 20:59 Margarita Silver M.D. Jan 09, 2019 12:46
--- NOTE | 2019-01-09 13:12 | Nephrology Progress Note ---
Assessment/Plan Problem List: (1) Renal failure (ARF), acute on chronic (2) Hyperkalemia (3) Anemia in chronic kidney disease (CKD) (4) History of nephrectomy Assessment hyperkalemia on presentation CKD , s/p nephrectomy ? Superimposed dehydration acute on chronic back pain with hx of multiple back surgeries pelvic pain in setting of abnormal CT A/P acute metabolic encephalopathy COPD/emphysema Anemia Plan check 24 h urine Cr Cl Hydrate Drug screen urine keep bp in check monitor renal parameters per orders med surg Subjective ROS Limited/Unobtainable: No Constitutional: Reports: malaise Objective Objective Last 24 Hour Vital Signs Date Time Temp Pulse Resp B/P (MAP) Pulse Ox O2 Delivery O2 Flow Rate FiO2 01/09/19 12:00 98.1 78 18 149/67 (94) 98 01/09/19 08:39 72 127/73 01/09/19 08:29 98.2 01/09/19 08:21 Room Air 01/09/19 08:00 97.4 72 20 127/73 (91) 96 01/09/19 04:00 98.2 83 18 147/70 (95) 97 83 01/09/19 00:00 98.2 80 17 149/62 (91) 97 01/08/19 21:00 Room Air 01/08/19 20:00 98.4 88 18 140/68 (92) 95 01/08/19 20:00 01/08/19 18:29 99 130/83 01/08/19 16:00 98.0 99 20 130/83 (99) 98 01/08/19 15:33 98.5 Intake and Output 01/08/19 01/09/19 19:00 07:00 Intake Total 510 ml 1240 ml Output Total 300 ml 1000 ml Balance 210 ml 240 ml Intake Oral 510 ml 1240 ml Output Urine Total 300 ml 1000 ml # Voids 1 # Bowel Movements 1 Laboratory Tests 01/09/19 06:40: White Blood Count 7.5, Red Blood Count 3.45L, Hemoglobin 9.3L, Hematocrit 30.6L , Mean Corpuscular Volume 89, Mean Corpuscular Hemoglobin 26.8L, Mean Corpuscular Hemoglobin Concent 30.3L, Red Cell Distribution Width 16.6H, Platelet Count 152, Mean Platelet Volume 7.2, Neutrophils (%) (Auto) 58.3, Lymphocytes (%) (Auto) 29.1, Monocytes (%) (Auto) 5.5, Eosinophils (%) (Auto) 5.2H, Basophils (%) (Auto) 1.8, Sodium Level 138, Potassium Level 4.0, Chloride Level 107, Carbon Dioxide Level 21, Anion Gap 10, Blood Urea Nitrogen 40H, Creatinine 3.5H, Estimat Glomerular Filtration Rate 15.9, Glucose Level 118H, Calcium Level 9.1 Height (Feet): 5 Height (Inches): 3.00 Weight (Pounds): 184 General Appearance: no apparent distress Objective no change Ron Arango MD Jan 09, 2019 13:11
--- NOTE | 2019-01-09 14:00 | NUR ---
NURSE NOTES: 24 hr urine collection for creatinine and protein statrted.
[2019-01-09 16:02] VITALS: BP 133/74
--- NOTE | 2019-01-09 16:12 | General Progress Note ---
Assessment/Plan Problem List: (1) UTI (urinary tract infection) ICD Codes: N39.0 - Urinary tract infection, site not specified SNOMED: 94765229 (2) Hyperkalemia ICD Codes: E87.5 - Hyperkalemia SNOMED: 21996804 Status: stable, progressing Assessment/Plan: pt diet abx neph f/u cbc bmp am dc w hh if all clear Subjective Constitutional: Reports: weakness 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) FENTANYL (Verified Allergy, Unknown, Rash, 10/28/17) TRAMADOL (Unverified Allergy, Unknown, 10/28/17) ACETAMINOPHEN (Verified Adverse Reaction, Unknown, 10/28/17) abd pain Uncoded Allergies: IV CONTRAST (Allergy, Unknown, 01/06/19) All Systems: reviewed and negative except above Subjective sleepy calm Objective Last 24 Hour Vital Signs Date Time Temp Pulse Resp B/P (MAP) Pulse Ox O2 Delivery O2 Flow Rate FiO2 01/09/19 16:02 97.5 71 20 133/74 (93) 98 01/09/19 12:00 98.1 78 18 149/67 (94) 98 01/09/19 08:39 72 127/73 01/09/19 08:29 98.2 01/09/19 08:21 Room Air 01/09/19 08:00 97.4 72 20 127/73 (91) 96 01/09/19 04:00 98.2 83 18 147/70 (95) 97 83 01/09/19 00:00 98.2 80 17 149/62 (91) 97 01/08/19 21:00 Room Air 01/08/19 20:00 98.4 88 18 140/68 (92) 95 01/08/19 20:00 01/08/19 18:29 99 130/83 Intake and Output 01/08/19 01/09/19 19:00 07:00 Intake Total 510 ml 1240 ml Output Total 300 ml 1000 ml Balance 210 ml 240 ml Intake Oral 510 ml 1240 ml Output Urine Total 300 ml 1000 ml # Voids 1 # Bowel Movements 1 Laboratory Tests 01/09/19 06:40: White Blood Count 7.5, Red Blood Count 3.45L, Hemoglobin 9.3L, Hematocrit 30.6L , Mean Corpuscular Volume 89, Mean Corpuscular Hemoglobin 26.8L, Mean Corpuscular Hemoglobin Concent 30.3L, Red Cell Distribution Width 16.6H, Platelet Count 152, Mean Platelet Volume 7.2, Neutrophils (%) (Auto) 58.3, Lymphocytes (%) (Auto) 29.1, Monocytes (%) (Auto) 5.5, Eosinophils (%) (Auto) 5.2H, Basophils (%) (Auto) 1.8, Sodium Level 138, Potassium Level 4.0, Chloride Level 107, Carbon Dioxide Level 21, Anion Gap 10, Blood Urea Nitrogen 40H, Creatinine 3.5H, Estimat Glomerular Filtration Rate 15.9, Glucose Level 118H, Calcium Level 9.1 Height (Feet): 5 Height (Inches): 3.00 Weight (Pounds): 184 General Appearance: alert EENT: normal ENT inspection Neck: normal alignment Cardiovascular: normal peripheral pulses, normal rate, regular rhythm Respiratory/Chest: chest wall non-tender, lungs clear, normal breath sounds Abdomen: normal bowel sounds, non tender, soft Extremities: normal inspection Edema: no edema noted Arm (L), no edema noted Arm (R), no edema noted Leg (L), no edema noted Leg (R), no edema noted Pedal (L), no edema noted Pedal (R), no edema noted Generalized Neurologic: motor weakness Skin: normal pigmentation, warm/dry Paras Peterson DO Jan 09, 2019 16:12
--- NOTE | 2019-01-09 17:38 | General Progress Note ---
Assessment/Plan Assessment/Plan: (1) Lumbago (2) H/O Lumbar fusion (3) Cervicalgia (4) H/o Cervical fusion Patient will be continued on Dilaudid, methadone and Robaxin D/w Dr. Hester and he concurred. Subjective Date patient seen: Jan 09, 2019 Time patient seen: 17:35 Constitutional: Reports: weakness HEENT: Reports: blurred vision Cardiovascular: Reports: no symptoms Respiratory: Reports: no symptoms Gastrointestinal/Abdominal: Reports: no symptoms Genitourinary: Reports: no symptoms Neurologic/Psychiatric: Reports: weakness Endocrine: Reports: no symptoms Hematologic/Lymphatic: Reports: no symptoms 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 She has been started on Methadone 10mg Q6H and is using the Dilaudid as needed. Explained to patient in depth about the methadone and she seems to understand Objective Last 24 Hour Vital Signs Date Time Temp Pulse Resp B/P (MAP) Pulse Ox O2 Delivery O2 Flow Rate FiO2 01/09/19 16:02 97.5 71 20 133/74 (93) 98 01/09/19 12:00 98.1 78 18 149/67 (94) 98 01/09/19 08:39 72 127/73 01/09/19 08:29 98.2 01/09/19 08:21 Room Air 01/09/19 08:00 97.4 72 20 127/73 (91) 96 01/09/19 04:00 98.2 83 18 147/70 (95) 97 83 01/09/19 00:00 98.2 80 17 149/62 (91) 97 01/08/19 21:00 Room Air 01/08/19 20:00 98.4 88 18 140/68 (92) 95 01/08/19 20:00 01/08/19 18:29 99 130/83 Intake and Output 01/08/19 01/09/19 19:00 07:00 Intake Total 510 ml 1240 ml Output Total 300 ml 1000 ml Balance 210 ml 240 ml Intake Oral 510 ml 1240 ml Output Urine Total 300 ml 1000 ml # Voids 1 # Bowel Movements 1 Laboratory Tests 01/09/19 06:40: White Blood Count 7.5, Red Blood Count 3.45L, Hemoglobin 9.3L, Hematocrit 30.6L , Mean Corpuscular Volume 89, Mean Corpuscular Hemoglobin 26.8L, Mean Corpuscular Hemoglobin Concent 30.3L, Red Cell Distribution Width 16.6H, Platelet Count 152, Mean Platelet Volume 7.2, Neutrophils (%) (Auto) 58.3, Lymphocytes (%) (Auto) 29.1, Monocytes (%) (Auto) 5.5, Eosinophils (%) (Auto) 5.2H, Basophils (%) (Auto) 1.8, Sodium Level 138, Potassium Level 4.0, Chloride Level 107, Carbon Dioxide Level 21, Anion Gap 10, Blood Urea Nitrogen 40H, Creatinine 3.5H, Estimat Glomerular Filtration Rate 15.9, Glucose Level 118H, Calcium Level 9.1 Height (Feet): 5 Height (Inches): 3.00 Weight (Pounds): 184 Objective General Appearance: no apparent distress, alert EENT: normal ENT inspection Neck: limited range of motion, pain on motion Cardiovascular: normal rate, regular rhythm Respiratory/Chest: decreased breath sounds Abdomen: non tender, soft Edema: trace edema Neurologic: alert, oriented x 3 Skin: normal pigmentation Zay Brady Jan 09, 2019 17:38
--- NOTE | 2019-01-09 18:04 | NUR ---
CASE MANAGEMENT:REVIEW 01/09/19 SI: UTI. HYPERKALEMIA. AC/CHR RENAL FAILURE 97.5 71 20 133/74 98% ON RA H/H-9.3/30.6 BUN+40 CR+3.5 IS: METHADONE 0MG PO Q6HRS PROTONIX PO QD HEPARIN SQ Q12 NORVASC PO BID LACTULOSE PO TID : MED/SURG STATUS 3 EAST PLAN: 24HRS CREATININE CLEARANCE 24 HR URINE PROTEIN
--- NOTE | 2019-01-09 18:57 | NUR ---
NURSE NOTES: CONDITION STABLE. IN NO DISTRESS. 24HR URINE COLLECTION FOR PROTEIN AND CREATINE IN PROGRESS.
--- NOTE | 2019-01-09 19:17 | NUR ---
HAND-OFF: Report given to Rubens OH RN.
--- NOTE | 2019-01-09 19:56 | NUR ---
NURSE NOTES: Received report from SULTANA Velez. Patient A&Ox4. On room air. No signs of distress or labored breathing. No IV access, MD aware. Chappell intact, patent, and draining urine. Bed in lowest position with call light in reach. Will continue with plan of care.
[2019-01-09 20:00] VITALS: BP 120/67
[2019-01-10] VITALS: BP 140/52
[2019-01-10] MEDS: HYDROmorphone 2mg tab ORAL PRN ×3 (01:47→13:50)
[2019-01-10 04:00] VITALS: BP 107/55
[2019-01-10 06:19] LABS: BASOPHILS % (AUTO) 1.1 % (0.0-2.0); EOSINOPHILS % (AUTO) 5.8 % (0.0-3.0); HEMATOCRIT 30.3 % (37.0-47.0); HEMOGLOBIN 9.3 G/DL (12.0-16.0); LYMPHOCYTES % (AUTO) 36.9 % (20.0-45.0); MEAN CORPUSCULAR VOLUME 89 FL (80-99); MONOCYTES % (AUTO) 8.1 % (1.0-10.0); PLATELET COUNT 160 K/UL (150-450); RED BLOOD COUNT 3.42 M/UL (4.20-5.40); RED CELL DISTRIBUTION WIDTH 16.3 % (11.6-14.8); WHITE BLOOD COUNT 7.6 K/UL (4.8-10.8)
--- NOTE | 2019-01-10 06:41 | General Progress Note ---
Assessment/Plan Problem List: (1) Hypoglycemia ICD Codes: E16.2 - Hypoglycemia, unspecified SNOMED: 713186887 (2) Chronic renal insufficiency ICD Codes: N18.9 - Chronic kidney disease, unspecified SNOMED: 437081267 Assessment/Plan: hypoglycemia on presentation after hyperkalemia treated with insulin no recurrent so far - glucose values on low normal side - continue glucose monitoring w/o insulin coverage - hypoglycemia protocol 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) FENTANYL (Verified Allergy, Unknown, Rash, 10/28/17) TRAMADOL (Unverified Allergy, Unknown, 10/28/17) ACETAMINOPHEN (Verified Adverse Reaction, Unknown, 10/28/17) abd pain Uncoded Allergies: IV CONTRAST (Allergy, Unknown, 01/06/19) All Systems: reviewed and negative except above Subjective events noted Item Value Date Time Bedside Blood Glucose 96 mg/dl 01/10/19 0558 Bedside Blood Glucose 102 mg/dl 01/09/19 2052 Bedside Blood Glucose 95 mg/dl 01/09/19 1636 Bedside Blood Glucose 92 mg/dl 01/09/19 1228 Bedside Blood Glucose 92 mg/dl 01/09/19 0630 Objective Last 24 Hour Vital Signs Date Time Temp Pulse Resp B/P (MAP) Pulse Ox O2 Delivery O2 Flow Rate FiO2 01/10/19 04:00 98.2 85 18 107/55 (72) 98 01/10/19 00:00 98.4 81 18 140/52 (81) 96 01/09/19 21:00 Room Air 01/09/19 20:00 98.4 87 18 120/67 (84) 97 01/09/19 17:46 71 133/74 01/09/19 16:02 97.5 71 20 133/74 (93) 98 01/09/19 12:00 98.1 78 18 149/67 (94) 98 01/09/19 08:39 72 127/73 01/09/19 08:29 98.2 01/09/19 08:21 Room Air 01/09/19 08:00 97.4 72 20 127/73 (91) 96 Intake and Output 01/09/19 01/10/19 19:00 07:00 Intake Total 300 ml Output Total 500 ml 500 ml Balance -200 ml -500 ml Intake Oral 300 ml Output Urine Total 500 ml 500 ml # Voids 1 Laboratory Tests 01/10/19 05:50: White Blood Count 7.6, Red Blood Count 3.42L, Hemoglobin 9.3L, Hematocrit 30.3L , Mean Corpuscular Volume 89, Mean Corpuscular Hemoglobin 27.2, Mean Corpuscular Hemoglobin Concent 30.7L, Red Cell Distribution Width 16.3H, Platelet Count 160, Mean Platelet Volume 7.3, Neutrophils (%) (Auto) 48.0, Lymphocytes (%) (Auto) 36.9, Monocytes (%) (Auto) 8.1, Eosinophils (%) (Auto) 5.8H, Basophils (%) (Auto) 1.1, Sodium Level [Pending], Potassium Level [Pending ], Chloride Level [Pending], Carbon Dioxide Level [Pending], Blood Urea Nitrogen [Pending], Creatinine [Pending], Estimat Glomerular Filtration Rate [ Pending], Glucose Level [Pending], Uric Acid [Pending], Calcium Level [Pending] , Phosphorus Level [Pending], Magnesium Level [Pending], Total Bilirubin [ Pending], Aspartate Amino Transf (AST/SGOT) [Pending], Alanine Aminotransferase (ALT/SGPT) [Pending], Alkaline Phosphatase [Pending], C-Reactive Protein, Quantitative [Pending], Pro-B-Type Natriuretic Peptide [Pending], Total Protein [Pending], Albumin [Pending], Globulin [Pending] Height (Feet): 5 Height (Inches): 3.00 Weight (Pounds): 180 General Appearance: no apparent distress Neck: normal alignment Cardiovascular: normal rate Respiratory/Chest: lungs clear Abdomen: normal bowel sounds Objective Current Medications Medications (Trade) Dose Ordered Sig/Linda Route PRN Reason Start Time Stop Time Status Last Admin Dose Admin Amlodipine Besylate (Norvasc) 5 mg BID ORAL 01/08/19 18:00 02/06/19 11:29 01/09/19 17:46 Clonidine HCl (Catapres Tab) 0.1 mg Q4H PRN ORAL SBP > 160mmHg 01/08/19 15:41 02/07/19 15:40 Dextrose (Dextrose 50%) 25 ml Q30M PRN IV Hypoglycemia 01/08/19 16:00 02/05/19 07:55 Dextrose (Dextrose 50%) 50 ml Q30M PRN IV hypoglycemia 01/08/19 16:00 02/05/19 07:59 Docusate Sodium (Colace) 100 mg THREE TIMES A DAY ORAL 01/08/19 18:00 02/05/19 17:59 01/09/19 17:46 Heparin Sodium (Porcine) (Heparin 5000 units/ml) 5,000 units EVERY 12 HOURS SUBQ 01/08/19 21:00 02/05/19 08:59 Hydromorphone HCl (Dilaudid) 2 mg Q4H PRN ORAL severe pain 01/08/19 15:42 01/15/19 15:41 01/10/19 01:47 Lactulose (Cephulac) 20 gm THREE TIMES A DAY ORAL 01/08/19 18:00 02/07/19 12:59 Lorazepam (Ativan) 0.5 mg Q6H PRN ORAL For Anxiety 01/08/19 15:42 01/15/19 15:41 01/09/19 00:56 Methadone HCl (Methadone HCl) 10 mg Q6HR ORAL 01/09/19 12:00 01/15/19 11:59 01/10/19 05:53 Methocarbamol (Robaxin) 500 mg Q8H PRN ORAL muscle spasm 01/08/19 15:42 02/07/19 15:41 Ondansetron HCl (Zofran) 4 mg Q6H PRN IVP Nausea & Vomiting 01/08/19 15:43 02/07/19 15:42 Pantoprazole (Protonix) 40 mg DAILY ORAL 01/09/19 09:00 02/06/19 08:59 01/09/19 08:38 Polyethylene Glycol (Miralax) 17 gm DAILYPRN PRN ORAL Constipation 01/08/19 15:43 02/07/19 15:42 Zolpidem Tartrate (Ambien) 5 mg HSPRN PRN ORAL Insomnia 01/08/19 21:00 01/13/19 20:59 Bhupinder Park MD Jan 10, 2019 06:41
[2019-01-10 07:03] LABS: ALANINE AMINOTRANSFERASE 13 U/L (12-78); ALBUMIN 3.2 G/DL (3.4-5.0); ALBUMIN/GLOBULIN RATIO 0.9 (1.0-2.7); ALKALINE PHOSPHATASE 153 U/L (46-116); ANION GAP 9 mmol/L (5-15); ASPARTATE AMINO TRANSFERASE 21 U/L (15-37); BILIRUBIN,TOTAL 0.3 MG/DL (0.2-1.0); BLOOD UREA NITROGEN 47 mg/dL (7-18); CALCIUM 9.1 MG/DL (8.5-10.1); CARBON DIOXIDE 23 MMOL/L (21-32); CHLORIDE 108 MMOL/L (98-107); CREATININE 3.6 MG/DL (0.55-1.30); PHOSPHORUS 6.1 MG/DL (2.5-4.9); POTASSIUM 4.8 MMOL/L (3.5-5.1); SODIUM 140 MMOL/L (136-145)
--- NOTE | 2019-01-10 07:07 | NUR ---
HAND-OFF: Report given to SULTANA Velez.
--- NOTE | 2019-01-10 07:16 | NUR ---
DISCHARGE PLANNING CLINICALS FAXED TO [facility] T: [phone]
--- NOTE | 2019-01-10 07:30 | NUR ---
NURSE NOTES: AWAKE/ALERT. C/O PAIN ON BACK RADIATING TO RT HIPAND FOOT. GIVEN DILAUDID 2MG PO. IN NO ACUTE DISTRESS.
[2019-01-10 08:00] VITALS: BP 95/57
--- NOTE | 2019-01-10 08:13 | General Progress Note ---
Assessment/Plan Assessment/Plan: (1) Lumbago (2) H/O Lumbar fusion (3) Cervicalgia (4) H/o Cervical fusion Patient will be continued on Dilaudid, methadone and Robaxin D/w Dr. Hester and he concurred. 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) FENTANYL (Verified Allergy, Unknown, Rash, 10/28/17) TRAMADOL (Unverified Allergy, Unknown, 10/28/17) ACETAMINOPHEN (Verified Adverse Reaction, Unknown, 10/28/17) abd pain Uncoded Allergies: IV CONTRAST (Allergy, Unknown, 01/06/19) Subjective Constitutional: Reports: weakness HEENT: Reports: blurred vision Cardiovascular: Reports: no symptoms Respiratory: Reports: no symptoms Gastrointestinal/Abdominal: Reports: no symptoms Genitourinary: Reports: no symptoms Neurologic/Psychiatric: Reports: weakness Endocrine: Reports: no symptoms Hematologic/Lymphatic: Reports: no symptoms Subjective: Patient is in bed and continues to c/o back pain. She has taken 4 doses of methadone and 4 doses of Dilaudid in the last 24hrs. No new complaints at this time. Objective Last 24 Hour Vital Signs Date Time Temp Pulse Resp B/P (MAP) Pulse Ox O2 Delivery O2 Flow Rate FiO2 01/10/19 04:00 98.2 85 18 107/55 (72) 98 01/10/19 00:00 98.4 81 18 140/52 (81) 96 01/09/19 21:00 Room Air 01/09/19 20:00 98.4 87 18 120/67 (84) 97 01/09/19 17:46 71 133/74 01/09/19 16:02 97.5 71 20 133/74 (93) 98 01/09/19 12:00 98.1 78 18 149/67 (94) 98 01/09/19 08:39 72 127/73 01/09/19 08:29 98.2 01/09/19 08:21 Room Air Intake and Output 01/09/19 01/10/19 19:00 07:00 Intake Total 300 ml Output Total 500 ml 500 ml Balance -200 ml -500 ml Intake Oral 300 ml Output Urine Total 500 ml 500 ml # Voids 1 Laboratory Tests 01/10/19 05:50: White Blood Count 7.6, Red Blood Count 3.42L, Hemoglobin 9.3L, Hematocrit 30.3L , Mean Corpuscular Volume 89, Mean Corpuscular Hemoglobin 27.2, Mean Corpuscular Hemoglobin Concent 30.7L, Red Cell Distribution Width 16.3H, Platelet Count 160, Mean Platelet Volume 7.3, Neutrophils (%) (Auto) 48.0, Lymphocytes (%) (Auto) 36.9, Monocytes (%) (Auto) 8.1, Eosinophils (%) (Auto) 5.8H, Basophils (%) (Auto) 1.1, Sodium Level 140, Potassium Level 4.8, Chloride Level 108H, Carbon Dioxide Level 23, Anion Gap 9, Blood Urea Nitrogen 47H, Creatinine 3.6H, Estimat Glomerular Filtration Rate 15.4, Glucose Level 95, Uric Acid 7.0, Calcium Level 9.1, Phosphorus Level 6.1H, Magnesium Level 2.0, Total Bilirubin 0.3, Aspartate Amino Transf (AST/SGOT) 21, Alanine Aminotransferase (ALT/SGPT) 13, Alkaline Phosphatase 153H, C-Reactive Protein, Quantitative 1.2H, Pro-B-Type Natriuretic Peptide 504H, Total Protein 6.6, Albumin 3.2L, Globulin 3.4, Albumin/Globulin Ratio 0.9L Height (Feet): 5 Height (Inches): 3.00 Weight (Pounds): 180 Objective General Appearance: no apparent distress, alert EENT: normal ENT inspection Neck: limited range of motion, pain on motion Cardiovascular: normal rate, regular rhythm Respiratory/Chest: decreased breath sounds Abdomen: non tender, soft Edema: trace edema Neurologic: alert, oriented x 3 Skin: normal pigmentation Zay Brady Jan 10, 2019 08:13
[2019-01-10] MEDS: Docusate 100mg cap ORAL SCH ×3 (08:20→17:55)
[2019-01-10] MEDS: Heparin 5000 units/ml inj SUBQ SCH (08:22)
[2019-01-10] MEDS: Lactulose 20gm/30ml UDC ORAL SCH ×3 (08:22→17:30)
--- NOTE | 2019-01-10 09:20 | General Progress Note ---
Assessment/Plan Problem List: (1) UTI (urinary tract infection) ICD Codes: N39.0 - Urinary tract infection, site not specified SNOMED: 58355620 (2) Hyperkalemia ICD Codes: E87.5 - Hyperkalemia SNOMED: 05034147 Status: stable, progressing Assessment/Plan: pt diet abx neph f/u cbc bmp am dc plan [facility]t[place] aru Subjective Constitutional: Reports: weakness 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) FENTANYL (Verified Allergy, Unknown, Rash, 10/28/17) TRAMADOL (Unverified Allergy, Unknown, 10/28/17) ACETAMINOPHEN (Verified Adverse Reaction, Unknown, 10/28/17) abd pain Uncoded Allergies: IV CONTRAST (Allergy, Unknown, 01/06/19) All Systems: reviewed and negative except above Subjective sleepy calm Objective Last 24 Hour Vital Signs Date Time Temp Pulse Resp B/P (MAP) Pulse Ox O2 Delivery O2 Flow Rate FiO2 01/10/19 08:57 Room Air 01/10/19 08:20 77 95/57 01/10/19 08:00 98.0 77 17 95/57 (70) 95 01/10/19 07:54 98.2 01/10/19 04:00 98.2 85 18 107/55 (72) 98 01/10/19 00:00 98.4 81 18 140/52 (81) 96 01/09/19 21:00 Room Air 01/09/19 20:00 98.4 87 18 120/67 (84) 97 01/09/19 17:46 71 133/74 01/09/19 16:02 97.5 71 20 133/74 (93) 98 01/09/19 12:00 98.1 78 18 149/67 (94) 98 Intake and Output 01/09/19 01/10/19 19:00 07:00 Intake Total 300 ml Output Total 500 ml 500 ml Balance -200 ml -500 ml Intake Oral 300 ml Output Urine Total 500 ml 500 ml # Voids 1 Laboratory Tests 01/10/19 05:50: White Blood Count 7.6, Red Blood Count 3.42L, Hemoglobin 9.3L, Hematocrit 30.3L , Mean Corpuscular Volume 89, Mean Corpuscular Hemoglobin 27.2, Mean Corpuscular Hemoglobin Concent 30.7L, Red Cell Distribution Width 16.3H, Platelet Count 160, Mean Platelet Volume 7.3, Neutrophils (%) (Auto) 48.0, Lymphocytes (%) (Auto) 36.9, Monocytes (%) (Auto) 8.1, Eosinophils (%) (Auto) 5.8H, Basophils (%) (Auto) 1.1, Sodium Level 140, Potassium Level 4.8, Chloride Level 108H, Carbon Dioxide Level 23, Anion Gap 9, Blood Urea Nitrogen 47H, Creatinine 3.6H, Estimat Glomerular Filtration Rate 15.4, Glucose Level 95, Uric Acid 7.0, Calcium Level 9.1, Phosphorus Level 6.1H, Magnesium Level 2.0, Total Bilirubin 0.3, Aspartate Amino Transf (AST/SGOT) 21, Alanine Aminotransferase (ALT/SGPT) 13, Alkaline Phosphatase 153H, C-Reactive Protein, Quantitative 1.2H, Pro-B-Type Natriuretic Peptide 504H, Total Protein 6.6, Albumin 3.2L, Globulin 3.4, Albumin/Globulin Ratio 0.9L Height (Feet): 5 Height (Inches): 3.00 Weight (Pounds): 180 General Appearance: lethargic EENT: normal ENT inspection Neck: normal alignment Cardiovascular: normal peripheral pulses, normal rate, regular rhythm Respiratory/Chest: chest wall non-tender, lungs clear, normal breath sounds Abdomen: normal bowel sounds, non tender, soft Extremities: normal inspection Edema: no edema noted Arm (L), no edema noted Arm (R), no edema noted Leg (L), no edema noted Leg (R), no edema noted Pedal (L), no edema noted Pedal (R), no edema noted Generalized Neurologic: responsive, motor weakness Skin: normal pigmentation, warm/dry Paras Peterson DO Jan 10, 2019 09:20
--- NOTE | 2019-01-10 09:36 | NUR ---
CASE MANAGEMENT:REVIEW 01/10/19 SI: UTI. HYPERKALEMIA. AC/CHR RENAL FAILURE CHRONIC PAIN D/T MULTIPLE SURGERIES. COPD 98.0 77 17 99/57 95% ON RA H/H-9.3/30.3 BUN+47 CR+3.6 IS: METHADONE 10MG PO Q6HRS IV DILAUDID Q4HRS PROTONIX PO QD HEPARIN SQ Q12 NORVASC PO BID LACTULOSE PO TID : MED/SURG STATUS 3 EAST DCP: PATIENT IS FROM HOME PLAN: 24HRS CREATININE CLEARANCE 24 HR URINE PROTEIN
--- NOTE | 2019-01-10 11:47 | Pulmonology Progress Note ---
Assessment/Plan Problems: (1) Renal failure (ARF), acute on chronic (2) Anemia in chronic kidney disease (CKD) (3) Hyperkalemia (4) Exacerbation of chronic back pain (5) Hypoglycemia (6) History of nephrectomy Assessment/Plan MRI of L spine reviewed, lots of artifacts IV fluids check electrolytes add methadone continue dilaudid po renal f/u K is better Subjective ROS Limited/Unobtainable: No Constitutional: Reports: no symptoms HEENT: Repors: no symptoms Respiratory: Reports: no symptoms 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) FENTANYL (Verified Allergy, Unknown, Rash, 10/28/17) TRAMADOL (Unverified Allergy, Unknown, 10/28/17) ACETAMINOPHEN (Verified Adverse Reaction, Unknown, 10/28/17) abd pain Uncoded Allergies: IV CONTRAST (Allergy, Unknown, 01/06/19) Objective Last 24 Hour Vital Signs Date Time Temp Pulse Resp B/P (MAP) Pulse Ox O2 Delivery O2 Flow Rate FiO2 01/10/19 08:57 Room Air 01/10/19 08:20 77 95/57 01/10/19 08:00 98.0 77 17 95/57 (70) 95 01/10/19 07:54 98.2 01/10/19 04:00 98.2 85 18 107/55 (72) 98 01/10/19 00:00 98.4 81 18 140/52 (81) 96 01/09/19 21:00 Room Air 01/09/19 20:00 98.4 87 18 120/67 (84) 97 01/09/19 17:46 71 133/74 01/09/19 16:02 97.5 71 20 133/74 (93) 98 01/09/19 12:00 98.1 78 18 149/67 (94) 98 Intake and Output 01/09/19 01/10/19 19:00 07:00 Intake Total 300 ml Output Total 500 ml 500 ml Balance -200 ml -500 ml Intake Oral 300 ml Output Urine Total 500 ml 500 ml # Voids 1 General Appearance: WD/WN HEENT: atraumatic, mucous membranes moist Respiratory/Chest: lungs clear, no accessory muscle use Cardiovascular: normal rate, no gallop/murmur Abdomen: normal bowel sounds, no organomegaly, no mass Extremities: no cyanosis Skin: no lesions Laboratory Tests 01/10/19 05:50: White Blood Count 7.6, Red Blood Count 3.42L, Hemoglobin 9.3L, Hematocrit 30.3L , Mean Corpuscular Volume 89, Mean Corpuscular Hemoglobin 27.2, Mean Corpuscular Hemoglobin Concent 30.7L, Red Cell Distribution Width 16.3H, Platelet Count 160, Mean Platelet Volume 7.3, Neutrophils (%) (Auto) 48.0, Lymphocytes (%) (Auto) 36.9, Monocytes (%) (Auto) 8.1, Eosinophils (%) (Auto) 5.8H, Basophils (%) (Auto) 1.1, Sodium Level 140, Potassium Level 4.8, Chloride Level 108H, Carbon Dioxide Level 23, Anion Gap 9, Blood Urea Nitrogen 47H, Creatinine 3.6H, Estimat Glomerular Filtration Rate 15.4, Glucose Level 95, Uric Acid 7.0, Calcium Level 9.1, Phosphorus Level 6.1H, Magnesium Level 2.0, Total Bilirubin 0.3, Aspartate Amino Transf (AST/SGOT) 21, Alanine Aminotransferase (ALT/SGPT) 13, Alkaline Phosphatase 153H, C-Reactive Protein, Quantitative 1.2H, Pro-B-Type Natriuretic Peptide 504H, Total Protein 6.6, Albumin 3.2L, Globulin 3.4, Albumin/Globulin Ratio 0.9L Current Medications Medications (Trade) Dose Ordered Sig/Linda Route PRN Reason Start Time Stop Time Status Last Admin Dose Admin Amlodipine Besylate (Norvasc) 5 mg BID ORAL 01/08/19 18:00 02/06/19 11:29 01/09/19 17:46 Clonidine HCl (Catapres Tab) 0.1 mg Q4H PRN ORAL SBP > 160mmHg 01/08/19 15:41 02/07/19 15:40 Dextrose (Dextrose 50%) 25 ml Q30M PRN IV Hypoglycemia 01/08/19 16:00 02/05/19 07:55 Dextrose (Dextrose 50%) 50 ml Q30M PRN IV hypoglycemia 01/08/19 16:00 02/05/19 07:59 Docusate Sodium (Colace) 100 mg THREE TIMES A DAY ORAL 01/08/19 18:00 02/05/19 17:59 01/10/19 08:20 Heparin Sodium (Porcine) (Heparin 5000 units/ml) 5,000 units EVERY 12 HOURS SUBQ 01/08/19 21:00 02/05/19 08:59 Hydromorphone HCl (Dilaudid) 2 mg Q4H PRN ORAL severe pain 01/08/19 15:42 01/15/19 15:41 01/10/19 07:23 Lactulose (Cephulac) 20 gm THREE TIMES A DAY ORAL 01/08/19 18:00 02/07/19 12:59 Lorazepam (Ativan) 0.5 mg Q6H PRN ORAL For Anxiety 01/08/19 15:42 01/15/19 15:41 01/09/19 00:56 Methadone HCl (Methadone HCl) 10 mg Q6HR ORAL 01/09/19 12:00 01/15/19 11:59 01/10/19 05:53 Methocarbamol (Robaxin) 500 mg Q8H PRN ORAL muscle spasm 01/08/19 15:42 02/07/19 15:41 Ondansetron HCl (Zofran) 4 mg Q6H PRN IVP Nausea & Vomiting 01/08/19 15:43 02/07/19 15:42 Pantoprazole (Protonix) 40 mg DAILY ORAL 01/09/19 09:00 02/06/19 08:59 01/10/19 08:20 Polyethylene Glycol (Miralax) 17 gm DAILYPRN PRN ORAL Constipation 01/08/19 15:43 02/07/19 15:42 Zolpidem Tartrate (Ambien) 5 mg HSPRN PRN ORAL Insomnia 01/08/19 21:00 01/13/19 20:59 Darvin Loving MD Jan 10, 2019 11:47
[2019-01-10] MEDS ORDERED: METHOCARBAMOL500 MG ORAL (11:49)
[2019-01-10] MEDS ORDERED: NORVASC5 MG ORAL (11:49)
[2019-01-10] MEDS ORDERED: ACETAMINOPHEN-1 EAC1 ORAL (11:49)
[2019-01-10 12:00] VITALS: BP 115/65
--- NOTE | 2019-01-10 12:31 | NUR ---
DISCHARGE PLANNING PATIENT WAS REFERRED TO [facility] YESTERDAY AND SHE DECLINED BECAUSE SHE SAID SHE IS SCHEDULED FOR SURGERY ON HER EYE ON TUESDAY CLINICALS HAVE ALREADY BEEN FAXED TO [facility]
--- NOTE | 2019-01-10 14:32 | Infectious Diseases Prog Note ---
Assessment/Plan Assessment/Plan Abx: None Assessment: Pelvic pain- no evidence of UTI -u/a neg -pelvic US: Nondiagnostic examination. Recommend follow-up contrast enhanced CT with good oral and IV contrast material -CT abd/p: Limited evaluation due to the nonadministration of IV and oral contrast. 8 cm masslike soft tissue focus within the lower abdomen could represent clustered nonopacified bowel. Other pathology not excluded and evaluation limited. Further evaluation recommended. Extensive all lumbar surgery as described above. Moderate retention of fecal material Distended urinary bladder. Atherosclerotic vascular disease. Apparent bilateral nephrectomy. Posterior basal atelectasis. Hiatal hernia -Addendum: There is questionable evidence of prior right nephrectomy. Densities in the right renal bed may represent surgical clips, and there is a structure that may represent a blind-ending right ureter. In the pelvic midline and just to the left of midline, the soft tissue masslike opacity described concurrent is actually a kidney. Per discussion with referring physician, patient does not have a history of renal transplant, and the location is not typical for renal transplant, so this presumably represents an ectopic kidney. 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 The ureter is dilated Also noted is a 2 mm calcification that may be in the bladder lumen on the left. If so, it appears slightly remote from the ureteral orifice so if intraluminal could represent a recently passed ureteral calculus. Ambulatory dysfunction -MRI L spine: Limited exam, due to susceptibility artifact from extensive fusion hardware. Postsurgical changes as described above and previously. Borderline canal stenosis at T12-L1 as well as T11-T12, also evident on prior 2012 CT scan. Borderline canal stenosis at L5-S1, also evident on prior CT scan. No evidence of significant canal stenosis elsewhere. Note inability to evaluate neural foramina or integrity of posterior osseous fusion. Afebrile No leukocytosis Encephalopathy -CT head: No acute intracranial bleed, mass effect or edema. Mild atrophy of the brain. Nonspecific white matter hypoattenuation probably due to chronic small vessel disease. Hyperkalemia chronic low back and hip pain anemia hx of pancreatitis hiatal hernia s/p multiple back surgeries COPD/emphysema CKD s/p nephrectomy Plan: -Continue to monitor off abx -f/u cx -Monitor CBC/CMP, temperatures Thank you for this consultation. Will continue to follow along with you. Discussed with RN. 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) FENTANYL (Verified Allergy, Unknown, Rash, 10/28/17) TRAMADOL (Unverified Allergy, Unknown, 10/28/17) ACETAMINOPHEN (Verified Adverse Reaction, Unknown, 10/28/17) abd pain Uncoded Allergies: IV CONTRAST (Allergy, Unknown, 01/06/19) Subjective afebrile no leukocytosis off abx Objective Vital Signs Last 24 Hour Vital Signs Date Time Temp Pulse Resp B/P (MAP) Pulse Ox O2 Delivery O2 Flow Rate FiO2 01/10/19 14:20 98.0 01/10/19 14:15 Room Air 01/10/19 12:00 98.7 85 16 115/65 (82) 96 01/10/19 08:57 Room Air 01/10/19 08:20 77 95/57 01/10/19 08:00 98.0 77 17 95/57 (70) 95 01/10/19 04:00 98.2 85 18 107/55 (72) 98 01/10/19 00:00 98.4 81 18 140/52 (81) 96 01/09/19 21:00 Room Air 01/09/19 20:00 98.4 87 18 120/67 (84) 97 01/09/19 17:46 71 133/74 01/09/19 16:02 97.5 71 20 133/74 (93) 98 Height (Feet): 5 Height (Inches): 3.00 Weight (Pounds): 180 Objective General Appearance: normal inspection, alert, GCS 15, Chronically Ill Head: atraumatic 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 ENT: normal ENT inspection, hearing grossly normal, normal voice Neck: normal inspection, full range of motion, supple, no bony tend Respiratory: normal inspection, lungs clear, normal breath sounds, no respiratory distress, no retraction, no wheezing Cardiovascular : regular rate, rhythm, no edema Gastrointestinal: normal inspection, normal bowel sounds, non tender, soft, no guarding, no hernia Genitourinary: no CVA tenderness Musculoskeletal: normal inspection, back normal, normal range of motion Neurologic: normal inspection, alert, responsive, other - somnolent Psychiatric: normal inspection, judgement/insight normal, mood/affect normal Laboratory Tests Test 01/10/19 05:50 White Blood Count 7.6 K/UL (4.8-10.8) Red Blood Count 3.42 M/UL (4.20-5.40) L Hemoglobin 9.3 G/DL (12.0-16.0) L Hematocrit 30.3 % (37.0-47.0) L Mean Corpuscular Volume 89 FL (80-99) Mean Corpuscular Hemoglobin 27.2 PG (27.0-31.0) Mean Corpuscular Hemoglobin Concent 30.7 G/DL (32.0-36.0) L Red Cell Distribution Width 16.3 % (11.6-14.8) H Platelet Count 160 K/UL (150-450) Mean Platelet Volume 7.3 FL (6.5-10.1) Neutrophils (%) (Auto) 48.0 % (45.0-75.0) Lymphocytes (%) (Auto) 36.9 % (20.0-45.0) Monocytes (%) (Auto) 8.1 % (1.0-10.0) Eosinophils (%) (Auto) 5.8 % (0.0-3.0) H Basophils (%) (Auto) 1.1 % (0.0-2.0) Sodium Level 140 MMOL/L (136-145) Potassium Level 4.8 MMOL/L (3.5-5.1) Chloride Level 108 MMOL/L (98-107) H Carbon Dioxide Level 23 MMOL/L (21-32) Anion Gap 9 mmol/L (5-15) Blood Urea Nitrogen 47 mg/dL (7-18) H Creatinine 3.6 MG/DL (0.55-1.30) H Estimat Glomerular Filtration Rate 15.4 mL/min (>60) Glucose Level 95 MG/DL (74-106) Uric Acid 7.0 MG/DL (2.6-7.2) Calcium Level 9.1 MG/DL (8.5-10.1) Phosphorus Level 6.1 MG/DL (2.5-4.9) H Magnesium Level 2.0 MG/DL (1.8-2.4) Total Bilirubin 0.3 MG/DL (0.2-1.0) Aspartate Amino Transf (AST/SGOT) 21 U/L (15-37) Alanine Aminotransferase (ALT/SGPT) 13 U/L (12-78) Alkaline Phosphatase 153 U/L (46-116) H C-Reactive Protein, Quantitative 1.2 mg/dL (0.00-0.90) H Pro-B-Type Natriuretic Peptide 504 pg/mL (0-125) H Total Protein 6.6 G/DL (6.4-8.2) Albumin 3.2 G/DL (3.4-5.0) L Globulin 3.4 g/dL Albumin/Globulin Ratio 0.9 (1.0-2.7) L Current Medications Medications (Trade) Dose Ordered Sig/Linda Route PRN Reason Start Time Stop Time Status Last Admin Dose Admin Amlodipine Besylate (Norvasc) 5 mg BID ORAL 01/08/19 18:00 02/06/19 11:29 01/09/19 17:46 Clonidine HCl (Catapres Tab) 0.1 mg Q4H PRN ORAL SBP > 160mmHg 01/08/19 15:41 02/07/19 15:40 Dextrose (Dextrose 50%) 25 ml Q30M PRN IV Hypoglycemia 01/08/19 16:00 02/05/19 07:55 Dextrose (Dextrose 50%) 50 ml Q30M PRN IV hypoglycemia 01/08/19 16:00 02/05/19 07:59 Docusate Sodium (Colace) 100 mg THREE TIMES A DAY ORAL 01/08/19 18:00 02/05/19 17:59 01/10/19 13:46 Heparin Sodium (Porcine) (Heparin 5000 units/ml) 5,000 units EVERY 12 HOURS SUBQ 01/08/19 21:00 02/05/19 08:59 Hydromorphone HCl (Dilaudid) 2 mg Q4H PRN ORAL severe pain 01/08/19 15:42 01/15/19 15:41 01/10/19 13:50 Lactulose (Cephulac) 20 gm THREE TIMES A DAY ORAL 01/08/19 18:00 02/07/19 12:59 Lorazepam (Ativan) 0.5 mg Q6H PRN ORAL For Anxiety 01/08/19 15:42 01/15/19 15:41 01/09/19 00:56 Methadone HCl (Methadone HCl) 10 mg Q6HR ORAL 01/09/19 12:00 01/15/19 11:59 01/10/19 12:16 Methocarbamol (Robaxin) 500 mg Q8H PRN ORAL muscle spasm 01/08/19 15:42 02/07/19 15:41 Ondansetron HCl (Zofran) 4 mg Q6H PRN IVP Nausea & Vomiting 01/08/19 15:43 02/07/19 15:42 Pantoprazole (Protonix) 40 mg DAILY ORAL 01/09/19 09:00 02/06/19 08:59 01/10/19 08:20 Polyethylene Glycol (Miralax) 17 gm DAILYPRN PRN ORAL Constipation 01/08/19 15:43 02/07/19 15:42 Sevelamer Carbonate (Renvela) 800 mg THREE TIMES A DAY ORAL 01/10/19 13:00 02/09/19 12:59 01/10/19 13:46 Zolpidem Tartrate (Ambien) 5 mg HSPRN PRN ORAL Insomnia 01/08/19 21:00 01/13/19 20:59 Margarita Silver M.D. Jan 10, 2019 14:32
[2019-01-10 14:54] LABS: CREATININE 3.6 MG/DL (0.55-1.30)
--- NOTE | 2019-01-10 14:56 | NUR ---
RD ASSESSMENT & RECOMMENDATIONS SEE CARE ACTIVITY FOR COMPLETE ASSESSMENT DAILY ESTIMATED NEEDS: Needs based on CKD, 65kg abw 25-30 kcals/kg 8583-8721 total kcals 0.6-0.8 g protein/kg 39-52 g total protein 20-25 mL/kg 3531-8213 total fluid mLs NUTRITION DIAGNOSIS: Altered nutrition related lab values R/T ARF on CKD as evidenced by elev creat (3.6), critically elev K upon adm (6.3-> now wnl), elev phos (6.1). CURRENT DIET:RENAL PO DIET RECOMMENDATIONS: Maintain RENAL diet ADDITIONAL RECOMMENDATIONS: * Standing wt for accurate CBW * Renal diet education provided 01/10 * Monitor renal fxn and lytes (phos elev, K normalized)
--- NOTE | 2019-01-10 15:19 | Nephrology Progress Note ---
Assessment/Plan Problem List: (1) Renal failure (ARF), acute on chronic (2) Hyperkalemia (3) Anemia in chronic kidney disease (CKD) (4) History of nephrectomy Assessment hyperkalemia on presentation CKD , s/p nephrectomy ? Superimposed dehydration acute on chronic back pain with hx of multiple back surgeries pelvic pain in setting of abnormal CT A/P acute metabolic encephalopathy COPD/emphysema Anemia Plan check 24 h urine Cr Cl Hydrate Drug screen urine keep bp in check monitor renal parameters per orders med surg Subjective ROS Limited/Unobtainable: No Constitutional: Reports: malaise Objective Objective Last 24 Hour Vital Signs Date Time Temp Pulse Resp B/P (MAP) Pulse Ox O2 Delivery O2 Flow Rate FiO2 01/10/19 14:20 98.0 01/10/19 14:15 Room Air 01/10/19 12:00 98.7 85 16 115/65 (82) 96 01/10/19 08:57 Room Air 01/10/19 08:20 77 95/57 01/10/19 08:00 98.0 77 17 95/57 (70) 95 01/10/19 04:00 98.2 85 18 107/55 (72) 98 01/10/19 00:00 98.4 81 18 140/52 (81) 96 01/09/19 21:00 Room Air 01/09/19 20:00 98.4 87 18 120/67 (84) 97 01/09/19 17:46 71 133/74 01/09/19 16:02 97.5 71 20 133/74 (93) 98 Intake and Output 01/09/19 01/10/19 19:00 07:00 Intake Total 300 ml Output Total 500 ml 500 ml Balance -200 ml -500 ml Intake Oral 300 ml Output Urine Total 500 ml 500 ml # Voids 1 Laboratory Tests 01/10/19 05:50: White Blood Count 7.6, Red Blood Count 3.42L, Hemoglobin 9.3L, Hematocrit 30.3L , Mean Corpuscular Volume 89, Mean Corpuscular Hemoglobin 27.2, Mean Corpuscular Hemoglobin Concent 30.7L, Red Cell Distribution Width 16.3H, Platelet Count 160, Mean Platelet Volume 7.3, Neutrophils (%) (Auto) 48.0, Lymphocytes (%) (Auto) 36.9, Monocytes (%) (Auto) 8.1, Eosinophils (%) (Auto) 5.8H, Basophils (%) (Auto) 1.1, Sodium Level 140, Potassium Level 4.8, Chloride Level 108H, Carbon Dioxide Level 23, Anion Gap 9, Blood Urea Nitrogen 47H, Creatinine 3.6H, Estimat Glomerular Filtration Rate 15.4, Glucose Level 95, Uric Acid 7.0, Calcium Level 9.1, Phosphorus Level 6.1H, Magnesium Level 2.0, Total Bilirubin 0.3, Aspartate Amino Transf (AST/SGOT) 21, Alanine Aminotransferase (ALT/SGPT) 13, Alkaline Phosphatase 153H, C-Reactive Protein, Quantitative 1.2H, Pro-B-Type Natriuretic Peptide 504H, Total Protein 6.6, Albumin 3.2L, Globulin 3.4, Albumin/Globulin Ratio 0.9L Height (Feet): 5 Height (Inches): 3.00 Weight (Pounds): 180 General Appearance: no apparent distress Objective no change Ron Arango MD Jan 10, 2019 15:19
--- NOTE | 2019-01-10 15:21 | NUR ---
*-* INSURANCE *-* ALL CLINICALS AND REVIEWS HAVE BEEN FAXED TO: [facility] WILL TRACK THIS ADMISSION (NO IPA) NCM: NON ASSIGNED AT THIS TIME PLEASE FAX THE REVIEW/CLINICAL P- [phone] F- [phone]...REVIEW/CLINICAL
[2019-01-10] MEDS ORDERED: METHADONE HCL5 MG ORAL (15:32)
[2019-01-10] MEDS ORDERED: NARCAN4 MG NS (15:34)
[2019-01-10 16:00] VITALS: BP 102/57
[2019-01-10 17:30] VITALS: BP 102/57
--- NOTE | 2019-01-10 18:19 | NUR ---
NURSE NOTES: 1800 DOSE OF METHADONE NOT GIVEN. PT READY FOR DISCHARGE AND JUST WAITING FOR TRANSPORTATION. PT HAS HOME PRESCRIPTION FOR METHADONE. INSTRUCTED TO TAKE MED WHEN SHE GET HOME. UNDERSTOOD INSTRUCTION.
--- NOTE | 2019-01-10 18:40 | NUR ---
NURSE NOTES: DISCHARGED HOME PER WHEELCHAIR VIA TAXI VOUCHER IN STABLE CONDITION. DC INSTRUCTIONS AND HOME PRESCRIPTION MEDS GIVEN.
--- NOTE | 2019-01-10 20:36 | Discharge Summary ---
Discharge Summary Discharge Summary _ DATE OF ADMISSION: 01/06/2019 DATE OF DISCHARGE: 01/10/2019 DISCHARGED BY: Dr Peterson REASON FOR ADMISSION: 63 years old female with past medical history of COPD/emphysema, asthma, right- sided nephrectomy, chronic renal insufficiency, pancreatitis, hiatal hernia, was brought by paramedics due to increased low back and pelvic pain and difficulty with ambulation. Patient has prior history of chronic low back pain , chronic hip pain , status post back and neck surgery. Vital signs revealed slightly elevated blood pressure 154/72. Patient appeared to be somnolent and unable to provide good history but was arousable. Laboratory work-up revealed no leukocytosis, hemoglobin 10.2, hematocrit 33.5 , potassium 6.3. BUN 49, creatinine 3.5. Glucose 91. Stable LFT Urinalysis revealed no evidence of UTI. CT of the head revealed no acute intracranial bleeding, mass-effect or edema. CT of the abdomen and pelvis demonstrated masslike soft tissue focus within the lower abdomen, possibly representing clustered non-opacified bowel. Extensive lumbar surgery noted. Moderate distention of fecal material. Distended urinary bladder,. Atherosclerotic vascular disease. Nephrectomy. Posterior bilateral atelectasis. Hiatal hernia. EKG revealed peaked T waves. Patient subsequently admitted for further management to telemetry floor. CONSULTANTS: pulmonary Dr. Loving ID specialist Dr. Silver traffic signal supervisor maintenance Dr. Arango pain specialist Dr. Hester group marketing vp Dr. Park [facility]SE: Patient admitted to telemetry floor due to hyperkalemia. Nephrology closely followed. Hyperkalemia treated. Renal parameters and electrolytes were closely monitored. Electrolytes further corrected as needed. Nephrotoxins were avoided. Urine studies were done . Due to abnormal findings on the CT of the abdomen and pelvis , pelvic ultrasound was done, which was nondiagnostic. It revealed a vague area of hypoechogenicity with shadowing , which could be part of the bladder, although the abnormality demonstrated above the bladder by CT. Addendum was made to the CT of the abdomen by radiologist: the soft tissue masslike opacity described - was actually an echogenic kidney. Judicious pain management was addressed as per pain specialist recommendation. MRI of the lumbar spine demonstrated postsurgical changes. Borderline canal stenosis at T12-L1 as well as a T11-T12 also evident on prior CT scan. Borderline canal stenosis at L5-S1 also evident on prior CT scan. No evidence of significant canal stenosis elsewhere. Urine toxicology screen was negative. CT of the head, done in ED, was negative. Initial somnolence was probably due to oversedation due to opioids. Judicious pain management provided as per pain specialist recommendation, as mentioned above Fall precaution maintained. Patient was working with physical therapist. Pain was controlled. Supplemental oxygen was on board and titrated to keep pulse oximetry above 92%. Pulmonary toilet via handheld nebulizing therapy with bronchodilator was ordered. No evidence of COPD exacerbation. Pulse oximetry was stable on room air. DVT prophylaxis provided. Bowel regimen instituted. Supportive care provided. Blood pressure appeared elevated, but no documented history of hypertension . Patient started on Amlodipine and clonidine on as-needed basis. Blood pressure stabilized, no further needs for antihypertensive, patient remained normotensive. Patient had evidence of hypoglycemia, which was treated as per protocol. Research Statistician followed. Hypoglycemia was present on presentation after hyperkalemia treated with insulin. No recurrences , glucose values at low normal side. Blood sugar was closely monitor without insulin coverage. Hypoglycemia protocol was in order. Hemoglobin A1c within normal range 4.7. No further episodes of hypoglycemia. Hemoglobin and hematocrit were closely monitored with goal to keep hemoglobin above 7. Hemoglobin and hematocrit remained at the baseline. Anemia work-up revealed stable iron. B12 and folate level stable. Prior to discharge hemoglobin 9.3, hematocrit 30.3. ID specialist closely followed. Patient remained afebrile, no leukocytosis. Urinalysis negative , no clinical evidence of infection. ID specialist recommended to keep patient off antibiotic and observe closely. Hyperkalemia resolved, upon discharge potassium 4.8. Renal parameters remained without change due to chronic kidney disease. Mental status improved. Pain was controlled. No further evidence of hypoglycemia Patient was working with physical therapist. Patient was stable for discharge home. FINAL DIAGNOSES: Hyperkalemia Chronic kidney disease , status post nephrectomy Acute on chronic back pain with history of multiple back surgery Acute metabolic encephalopathy COPD/emphysema Anemia of chronic kidney disease Hypoglycemia, episode -resolved Lumbago History of lumbar fusion Cervicalgia History of cervical fusion DISCHARGE MEDICATIONS: See Medication Reconciliation list. DISCHARGE INSTRUCTIONS: Patient was discharged home . Follow up with primary care provider in one week. Julia Perkins NP Jan 10, 2019 20:36
== END 2019-01-10 19:07 | disposition home or self-care (01) | DRG 425 ==
LOC: EDBD 23:41 → EDSEX 23:41 → EMR 01-06 01:41 → 2E 01-06 04:34 → EDBEDREQ 01-06 04:56 → 3E 01-08 15:38
DX: E87.5 Hyperkalemia (principal); G93.41 Metabolic encephalopathy; N17.9 Acute kidney failure, unspecified; N18.4 Chronic kidney disease, stage 4 (severe); F11.20 Opioid dependence, uncomplicated; J44.9 Chronic obstructive pulmonary disease, unspecified; N39.0 Urinary tract infection, site not specified; M54.5 Low back pain; Z98.1 Arthrodesis status; D63.1 Anemia in chronic kidney disease; E16.2 Hypoglycemia, unspecified; Z90.5 Acquired absence of kidney; K44.9 Diaphragmatic hernia without obstruction or gangrene; R26.2 Difficulty in walking, not elsewhere classified; Z88.6 Allergy status to analgesic agent; Z88.1 Allergy status to other antibiotic agents; Z88.0 Allergy status to penicillin; Z88.8 Allergy status to other drugs, medicaments and biological substances
CPT/HCPCS: 36415; 70450; 72148; 74176; 76856; 80048; 80053; 80061; 80307; 81001; 81050; 82436; 82533; 82550; 82575; 82607; 82728; 82746; 82962; 83036; 83540; 83550; 83735; 83880; 83930; 83935; 84100; 84133; 84156; 84300; 84439; 84443; 84481; 84550; 85025; 86140; 89050; 93005; 96360; 96361; 99285; J1815

== ENCOUNTER 2019-03-28 06:01 | Emergency (ER) | payer MEDICARE, OTHER ==
[~2019-03-28] VITALS: Ht 160 cm; Wt 70.3 kg
[~2019-03-28 06:01] MED LIST changes: +ACETAMINOPHEN-1 EAC1 ORAL; +METHADONE HCL5 MG ORAL; +METHOCARBAMOL500 MG ORAL; +NARCAN4 MG NS; +NORVASC5 MG ORAL
--- NOTE | 2019-03-28 06:15 | NUR ---
ED Nurse Note: Pt ambulated to ED c/o 10/10 back pain since falling 3 days ago, pt hit her head. Pt was seen at [facility]. Pt is &
[2019-03-28 06:21] VITALS: BP 183/89
[2019-03-28] MEDS ORDERED: HYDROCODON-ACE1 EA15 ORAL (06:23)
--- NOTE | 2019-03-28 06:23 | Emergency Room Report ---
History of Present Illness General Chief Complaint: Multiple Trauma/Fall Source: Patient Present Illness HPI This is a 63-year-old female with history of chronic pain. She usually go to [facility] and had been here before for multiple pain complaint. She presents with chief complaint of back pain and hip pain. She said about 4 days ago she tripped and fell. She went to [facility]. She had a CT scan done it was negative for any fracture. She was given [place] for pain medication. She does not have a primary care doctor. Does not have a pain specialist. No incontinence of bowel or urine. Pain is 10 out of 10. Worse with walking. No other injury. 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) FENTANYL (Verified Allergy, Unknown, Rash, 10/28/17) TRAMADOL (Unverified Allergy, Unknown, 10/28/17) ACETAMINOPHEN (Verified Adverse Reaction, Unknown, 10/28/17) abd pain Uncoded Allergies: IV CONTRAST (Allergy, Unknown, 01/06/19) Patient History Past Medical History: see triage record, old chart reviewed, HTN, COPD Past Surgical History: other Pertinent Family History: none Social History: Denies: smoking Last Menstrual Period: na Now: No Immunizations: other Reviewed Nursing Documentation: PMH: Agreed; PSxH: Agreed Nursing Documentation-PMH Hx Cardiac Problems: No Hx Hypertension: Yes Hx Asthma: Yes - bronchitis, ephysema Hx COPD: Yes Hx Diabetes: No - hypoglycema Hx Cancer: No Hx Gastrointestinal Problems: No Hx Neurological Problems: No - LT eye blind, RT eye cateract surgery 02/2019 Review of Systems Eye: Denies: eye pain, blurred vision ENT: Denies: ear pain, nose congestion, throat swelling Respiratory: Denies: cough, shortness of breath Cardiovascular: Denies: chest pain, palpitations Gastrointestinal: Denies: abdominal pain, diarrhea, nausea, vomiting Musculoskeletal: Reports: back pain, joint pain Skin: Denies: rash Neurological: Denies: headache, numbness Endocrine: Denies: increased thirst, increased urine Hematologic/Lymphatic: Denies: easy bruising All Other Systems: negative except mentioned in HPI Physical Exam Vital Signs Date Time Temp Pulse Resp B/P (MAP) Pulse Ox O2 Delivery O2 Flow Rate FiO2 03/28/19 06:04 97.9 81 16 183/89 (120) 98 vitals With high blood pressure Sp02 EP Interpretation: reviewed, normal General Appearance: well appearing, no apparent distress, alert Head: normocephalic, atraumatic Eyes: right eye PERRL - blind in left eye; bilateral eye EOMI ENT: hearing grossly normal, normal pharynx Neck: full range of motion, supple, no meningismus Respiratory: chest non-tender, lungs clear, normal breath sounds Cardiovascular #1: regular rate, rhythm, no murmur Gastrointestinal: normal bowel sounds, non tender, no mass, no organomegaly, no bruit, non-distended Musculoskeletal: back normal, normal range of motion, tender - Diffuse tenderness to the lower back and hip. Patient walk with a cane. Psychiatric: mood/affect normal Medical Decision Making Diagnostic Impression: Primary Impression: Exacerbation of chronic back pain Additional Impression: Opioid dependence ER Course Patient presents with exacerbation chronic pain. No evidence of fracture dislocation. She already had a CT scan done. I see no need for further studies. Will discharge home. Last Vital Signs Date Time Temp Pulse Resp B/P (MAP) Pulse Ox O2 Delivery O2 Flow Rate FiO2 03/28/19 06:04 97.9 81 16 183/89 (120) 98 Status: improved Disposition: HOME, SELF-CARE Condition: Stable Scripts Hydrocodone/Acetaminophen 5-325* (HYDROCODONE/ACETAMINOPHEN 5-325*) 1 Each Tablet 1 TAB ORAL Q6H PRN for For Pain, #10 TAB 0 Refills Prov: Yordy Wang MD 03/28/19 Additional Instructions: Follow-up with your doctor in 7 days. You need a referral to see a pain specialist. Return if symptoms worsen. Yordy Wang MD Mar 28, 2019 06:23
[2019-03-28 06:30] VITALS: BP 183/89
[2019-03-28] MEDS ORDERED: HYDROcodone/Acetamin 5/325 tab ORAL ONE (06:30)
--- NOTE | 2019-03-28 06:30 | NUR ---
ER DISCHARGE NOTE: Patient is cleared to be discharged per ERMD, pt is aox4, on room air, with stable vital signs. pt was given dc and prescription instructions, pt was able to verbalize understanding, pt id band removed. pt is able to ambulate with steady gait. pt took all belongings.
== END 2019-03-28 06:30 | disposition home or self-care (01) ==
LOC: EMR 06:26
DX: M54.9 Dorsalgia, unspecified (principal); G89.29 Other chronic pain; F11.20 Opioid dependence, uncomplicated; Z88.8 Allergy status to other drugs, medicaments and biological substances; Z88.6 Allergy status to analgesic agent; Z88.0 Allergy status to penicillin; Z88.1 Allergy status to other antibiotic agents; Z91.041 Radiographic dye allergy status; I10 Essential (primary) hypertension; J44.9 Chronic obstructive pulmonary disease, unspecified; H54.62 Unqualified visual loss, left eye, normal vision right eye
CPT/HCPCS: 99282

== ENCOUNTER 2020-04-11 08:28 | Emergency (ER) | payer MEDICARE, OTHER ==
[~2020-04-11] VITALS: Ht 152.4 cm; Wt 70.3 kg
[~2020-04-11 08:28] MED LIST changes: +HYDROCODON-ACE1 EA15 ORAL
[2020-04-11 08:48] VITALS: BP 179/90
--- NOTE | 2020-04-11 08:48 | NUR ---
ED Nurse Note: pt walked in to ed via cane for C/O pain to back and right knee x 3 days.
[2020-04-11] MEDS ORDERED: HYDROcodone/Acetamin 5/325 tab ORAL ONE (09:00)
--- NOTE | 2020-04-11 09:06 | NUR ---
ED Nurse Note: PO norco given, pt tolerated well. Xray being taken at bedside at this time.
--- NOTE | 2020-04-11 09:19 | NUR ---
ED Nurse Note: production line technician at bedside performing venous duplex.
--- NOTE | 2020-04-11 10:24 | NUR ---
ED Nurse Note: knee immoblizer applied to right knee by computed tomography scanner operator.
[2020-04-11 10:44] VITALS: BP 170/88
--- NOTE | 2020-04-11 10:44 | NUR ---
ER DISCHARGE NOTE: Patient is cleared to be discharged per ERMD, pt is aox4, on room air, with stable vital signs. pt was given dc instructions, pt was able to verbalize understanding, pt id band removed without complications. pt is able to ambulate with steady gait. pt took all belongings. Addendum: 04/11/20 at 1044 by MICHAEL ER DISCHARGE NOTE: Patient is cleared to be discharged per ERMD, pt is aox4, on room air, with stable vital signs. pt was given dc instructions, pt was able to verbalize understanding, pt id band removed without complications. pt is able to ambulate with steady gait uwing cane. pt took all belongings.
--- NOTE | 2020-04-11 11:54 | Diagnostic Imaging Report ---
EXAM: ULTRASOUND Venous Duplex Lower Ext Uni CLINICAL HISTORY: Leg pain and edema. COMPARISON: None TECHNIQUE: Doppler examination include grayscale images obtained with and without compression, and color and spectral doppler analysis. FINDINGS: Doppler examination shows normal spontaneity, phasicity, compressibility in the right lower extremity. There is no thrombus identified by grayscale. Normal color and spectral flow is identified. There is no evidence of valvular incompetency or insufficiency. IMPRESSION: UNREMARKABLE VENOUS DUPLEX.
--- NOTE | 2020-04-11 11:55 | Diagnostic Imaging Report ---
EXAM: X-RAY XRAY Knee 3v R CLINICAL HISTORY: Knee pain. COMPARISON: None FINDINGS: Total of 3 views of the right knee were obtained. Alignment is anatomic. There is no fracture, bony lesions or erosions. There appears to be degenerative subcortical cysts noted in the medial femoral condyle and perhaps in the posterior aspect of the patella. No significant joint effusion. Surrounding soft tissue is normal. IMPRESSION: POSSIBLE UNDERLYING DEGENERATIVE CHANGES WITH SUBCORTICAL CYSTIC CHANGE MEDIAL FEMORAL CONDYLE AND IN THE PATELLA.
--- NOTE | 2020-04-11 15:02 | Emergency Room Report ---
History of Present Illness General Chief Complaint: Pain Source: Patient Present Illness HPI 64-year-old female presents ED complaining of back pain and right knee pain. States she has history of chronic back pain. Denies any fall or injury. States that her right leg is swollen as well. Has been like this for many days now. Denies chest pain or shortness of breath. No other aggravating relieving factors. 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) FENTANYL (Verified Allergy, Unknown, Rash, 10/28/17) TRAMADOL (Unverified Allergy, Unknown, 10/28/17) ACETAMINOPHEN (Verified Adverse Reaction, Unknown, 10/28/17) abd pain Uncoded Allergies: IV CONTRAST (Allergy, Unknown, 01/06/19) COVID-19 Screening Contact w/high risk pt: No Experienced COVID-19 symptoms?: No COVID-19 Testing performed MACHINE CHAIN MAKER: No Patient History Past Medical History: HTN, asthma, COPD Past Surgical History: none Pertinent Family History: none Social History: Denies: smoking, alcohol use, drug use Last Menstrual Period: na Now: No Immunizations: UTD Reviewed Nursing Documentation: PMH: Agreed; PSxH: Agreed Nursing Documentation-PMH Past Medical History: No History, Except For Hx Cardiac Problems: No Hx Hypertension: Yes Hx Asthma: Yes - bronchitis, ephysema Hx COPD: Yes Hx Diabetes: No - hypoglycema Hx Cancer: No Hx Gastrointestinal Problems: No Hx Neurological Problems: No - LT eye blind, RT eye cateract surgery 02/2019 Review of Systems All Other Systems: negative except mentioned in HPI Physical Exam Vital Signs Date Time Temp Pulse Resp B/P (MAP) Pulse Ox O2 Delivery O2 Flow Rate FiO2 04/11/20 08:42 98.1 71 18 179/90 (119) 98 Room Air Sp02 EP Interpretation: reviewed, normal General Appearance: no apparent distress, alert, GCS 15, non-toxic Head: normocephalic, atraumatic Eyes: bilateral eye normal inspection, bilateral eye PERRL ENT: hearing grossly normal, normal pharynx, no angioedema, normal voice Neck: full range of motion, supple/symm/no masses Respiratory: chest non-tender, lungs clear, normal breath sounds, speaking full sentences Cardiovascular #1: regular rate, rhythm, no edema Cardiovascular #2: 2+ carotid (R), 2+ carotid (L), 2+ radial (R), 2+ radial (L), 2+ dorsalis pedis (R), 2+ dorsalis pedis (L) Gastrointestinal: normal bowel sounds, non tender, soft, non-distended, no guarding, no rebound Rectal: deferred Genitourinary: normal inspection, no CVA tenderness Musculoskeletal: back normal, normal range of motion, gait/station normal, tender, swelling - RLE Neurologic: alert, motor strength/tone normal, oriented x3, sensory intact, responsive, speech normal Psychiatric: judgement/insight normal, memory normal, mood/affect normal, no suicidal/homicidal ideation Reflexes: 3+ bicep (R), 3+ bicep (L), 3+ tricep (R), 3+ tricep (L), 3+ knee (R), 3+ knee (L) Skin: no rash Lymphatic: no adenopathy Procedures Splinting Splinting : Consent: Verbal Pre-Made Type: knee immobilizer Pre-Proc Neuro Vasc Exam: normal Post-Proc Neuro Vasc Exam: normal Patient Tolerated: Well Complications: None Medical Decision Making Diagnostic Impression: Primary Impression: Knee pain Qualified Codes: M25.561 - Pain in right knee; G89.29 - Other chronic pain Additional Impression: Exacerbation of chronic back pain ER Course Hospital Course 64-year-old female presents with right knee pain and right leg swelling Differential diagnoses include: Fracture, dislocation, sprain, DVT Clinical course Patient placed on stretcher. After initial history and physical, I ordered pain medications and Xrays of R knee, venous duplex Shows no acute fracture but significant DJD There is no evidence of DVT Cures. Patient has multiple narcotic prescriptions being filled on a monthly basis. I discussed findings with patient. No acute findings. Likely chronic. Patient needs to follow-up with PMD, physical therapy and pain management. States she is planning to go and has been already referred. Safe for discharge with close outpatient follow-up Diagnosis -knee pain, exacerbation of chronic back pain Stable and discharged to home. apply ice, keep elevated. weight bear as tolerated. Followup with PMD. Return to ED if symptoms recur or worsen Other X-Ray Diagnostic Results Other X-Ray Diagnostic Results : X-Ray ordered: R knee # of Views/Limited Vs Complete: 3 View Indication: Pain EP Interpretation: Yes Interpretation: no dislocation, no soft tissue swelling, no fractures Impression: No acute disease Electronically Signed by: Electronically signed by Dominick Gaxiola MD CT/MRI/US Diagnostic Results CT/MRI/US Diagnostic Results : Imaging Test Ordered: Venous DUplex Impression no DVT RLE Last Vital Signs Date Time Temp Pulse Resp B/P (MAP) Pulse Ox O2 Delivery O2 Flow Rate FiO2 04/11/20 10:44 98.0 80 19 170/88 98 Room Air Status: improved Disposition: HOME, SELF-CARE Condition: Stable Referrals: NOT CHOSEN IPA/,REFERRING (PCP) [facility] Open 24 hour /7 days a week by Appointment Only [address] [facility] [address] [facility] [id number] Patient Instructions: Chronic Pain Additional Instructions: you need to followup with physical therapy and pain management as outpatient. Dominick Gaxiola MD Apr 11, 2020 15:02
== END 2020-04-11 10:44 | disposition home or self-care (01) ==
LOC: EMR 10:00
DX: M25.561 Pain in right knee (principal); G89.29 Other chronic pain; M54.9 Dorsalgia, unspecified; Z88.6 Allergy status to analgesic agent; Z88.0 Allergy status to penicillin; Z88.8 Allergy status to other drugs, medicaments and biological substances; Z91.041 Radiographic dye allergy status; J44.9 Chronic obstructive pulmonary disease, unspecified; I10 Essential (primary) hypertension; M85.661 Other cyst of bone, right lower leg
CPT/HCPCS: 29505; 93971; 99284

== ENCOUNTER 2020-09-12 07:53 | Emergency (ER) | payer MEDICARE, OTHER ==
[~2020-09-12] VITALS: Ht 160 cm; Wt 68.0 kg
[2020-09-12 08:10] VITALS: BP 162/77
--- NOTE | 2020-09-12 08:12 | NUR ---
ED Nurse Note: pt walked into the ed due to right leg started this morning. denied trauma or fall. No sob,fever, and cough at the moment. Pt is A&Ox4, verbal and awake.
[2020-09-12] MEDS: HYDROcodone/Acetamin 5/325 tab ORAL ONE (08:24)
[2020-09-12] MEDS ORDERED: LIDODERM700 M1 TOPIC (09:14)
--- NOTE | 2020-09-12 10:13 | Emergency Room Report ---
History of Present Illness General Chief Complaint: Pain Source: Patient Present Illness HPI 64-year-old female presents with right hip pain. Walked in. Denies any fall or injury but states that pain suddenly started yesterday. Patient is well-known to [facility]. Has been here for multiple pain related complaints. Knee complaints. Pain is throbbing, 10 out of 10, radiating through the buttock. Denies any leg or motor weakness. Denies any bowel or bladder incontinence. No other aggravating relieving factors. 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) FENTANYL (Verified Allergy, Unknown, Rash, 10/28/17) GABAPENTIN (Verified Allergy, Unknown, 09/12/20) TRAMADOL (Unverified Allergy, Unknown, 10/28/17) ACETAMINOPHEN (Verified Adverse Reaction, Unknown, 10/28/17) abd pain Uncoded Allergies: IV CONTRAST (Allergy, Unknown, 01/06/19) COVID-19 Screening Contact w/high risk pt: No Experienced COVID-19 symptoms?: No COVID-19 Testing performed PIG MACHINE OPERATOR: No Patient History Past Medical History: HTN Past Surgical History: none Pertinent Family History: none Social History: Denies: smoking, alcohol use, drug use Now: No Immunizations: UTD Reviewed Nursing Documentation: PMH: Agreed; PSxH: Agreed Nursing Documentation-PMH Hx Cardiac Problems: No Hx Hypertension: Yes Hx Asthma: Yes - emphysema Hx COPD: Yes Hx Diabetes: No - hypoglycema Hx Cancer: No Hx Gastrointestinal Problems: No Hx Neurological Problems: No - LT eye blind, RT eye cateract surgery 02/2019 Review of Systems All Other Systems: negative except mentioned in HPI Physical Exam Vital Signs Date Time Temp Pulse Resp B/P (MAP) Pulse Ox O2 Delivery O2 Flow Rate FiO2 09/12/20 08:03 97.9 83 18 162/77 (105) 98 Room Air Sp02 EP Interpretation: reviewed, normal General Appearance: no apparent distress, alert, GCS 15, non-toxic Head: normocephalic, atraumatic Eyes: bilateral eye normal inspection, bilateral eye PERRL ENT: hearing grossly normal, normal pharynx, no angioedema, normal voice Neck: full range of motion, supple/symm/no masses Respiratory: chest non-tender, lungs clear, normal breath sounds, speaking full sentences Cardiovascular #1: regular rate, rhythm, no edema Cardiovascular #2: 2+ carotid (R), 2+ carotid (L), 2+ radial (R), 2+ radial (L), 2+ dorsalis pedis (R), 2+ dorsalis pedis (L) Gastrointestinal: normal bowel sounds, non tender, soft, non-distended, no guarding, no rebound Rectal: deferred Genitourinary: normal inspection, no CVA tenderness Musculoskeletal: back normal, normal range of motion, gait/station normal, tender - R hip Neurologic: alert, motor strength/tone normal, oriented x3, sensory intact, responsive, speech normal Psychiatric: judgement/insight normal, memory normal, mood/affect normal, no suicidal/homicidal ideation Reflexes: 3+ bicep (R), 3+ bicep (L), 3+ tricep (R), 3+ tricep (L), 3+ knee (R), 3+ knee (L) Lymphatic: no adenopathy Medical Decision Making Diagnostic Impression: Primary Impression: Hip pain Additional Impression: Opioid dependence ER Course Hospital Course 64-year-old female presents with right hip pain. No fall or injury Differential diagnoses include: Fracture, dislocation, sprain, contusion Clinical course Patient placed on stretcher. After initial history and physical, I ordered pain medications and Xrays of right hip pelvis Xrays prelim read shows no acute fracture/dislocation. There appears to be no joint spacing and DJD noted I discussed findings with patient. Patient does require Ortho evaluation. I will provide referrals. Patient is requesting additional pain meds. Cures reveals multiple narcotic prescriptions being filled on a monthly basis. I agreed to provide her with Lidoderm patches and she needs to follow-up with pain management. Diagnosis - hip pain, opioid dependence Stable and discharged to home with prescription for lidoderm. apply ice, keep elevated. weight bear as tolerated. Followup with PMD. Return to ED if symptoms recur or worsen Other X-Ray Diagnostic Results Other X-Ray Diagnostic Results : X-Ray ordered: R hip # of Views/Limited Vs Complete: 3 View Indication: Pain EP Interpretation: Yes Interpretation: no dislocation, no soft tissue swelling, no fractures, other - DJD Impression: Other - DJD Electronically Signed by: Electronically signed by Dominick Gaxiola MD Last Vital Signs Date Time Temp Pulse Resp B/P (MAP) Pulse Ox O2 Delivery O2 Flow Rate FiO2 09/12/20 08:10 97.9 18 162/77 98 Room Air 09/12/20 08:03 83 Status: improved Disposition: HOME, SELF-CARE Condition: Stable Scripts Lidocaine Patch* (Lidoderm Patch*) 1 Each Adh..patch 1 PATCH TOPIC DAILY, #7 PATCH 0 Refills Patch(es) may remain in place for up to 12 hours in any 24-hour period. Prov: Dominick Gaxiola MD 09/12/20 Referrals: NOT CHOSEN IPA/,REFERRING (PCP) [facility] Open 24 hour /7 days a week by Appointment Only [address] [facility] [id number] Patient Instructions: Hip Pain Dominick Gaxiola MD Sep 12, 2020 10:13
[2020-09-12 10:25] VITALS: BP_SYST 148
--- NOTE | 2020-09-12 10:27 | NUR ---
ER DISCHARGE NOTE: Patient is cleared to be discharged per ERMD, pt is aox4, on room air, with stable vital signs. pt was given dc and prescription instructions, pt was able to verbalize understanding, pt id band and iv site removed without complications. pt is able to ambulate with steady gait. pt took all belongings.
--- NOTE | 2020-09-12 15:08 | Diagnostic Imaging Report ---
Indication: Hip pain Technique: XRAY Hip Routine 2v+ w/Pelv- R Comparison: None Findings: No acute fracture or dislocation is identified. Mild degenerative and enthesopathic changes are seen. Multiple soft tissue calcifications are noted. There are degenerative changes in the lower lumbar spine. Indwelling spinal fusion hardware is seen. Impression: No acute fracture or dislocation. Degenerative and enthesopathic changes. Postoperative changes with lumbar sacral fixation hardware
== END 2020-09-12 09:56 | disposition home or self-care (01) ==
LOC: EMR 08:20
DX: M25.551 Pain in right hip (principal); F11.20 Opioid dependence, uncomplicated; I10 Essential (primary) hypertension; J43.9 Emphysema, unspecified; H54.62 Unqualified visual loss, left eye, normal vision right eye; Z88.0 Allergy status to penicillin; Z88.5 Allergy status to narcotic agent; Z88.6 Allergy status to analgesic agent; Z91.041 Radiographic dye allergy status; Z88.8 Allergy status to other drugs, medicaments and biological substances
CPT/HCPCS: 99283